=== PATIENT | male | born 1960 | race Caucasian/White ===

== ENCOUNTER 2016-11-16 05:43 | Emergency (ER) | payer OTHER ==
[~2016-11-16] VITALS: Ht 190.5 cm; Wt 104.5 kg
[2016-11-16 05:48] VITALS: TEMP 36.8; Ht 190.5 cm; Wt 104.5 kg
--- NOTE | 2016-11-16 06:12 | EMERGENCY ROOM VISIT NOTE ---
History Report prepared by Sudhiribmalik: Jessica Sam Under the Supervision of: Dr. Kristin Brown M.D. First contact with patient: 05:58 Chief Complaint: FOOT PAIN Stated Complaint: VERY PAINFUL FEET, ODD SENSATIONS IN LEGS History of Present Illness The patient is a 56 year old male who presents to the Emergency Room with complaints of worsening bilateral foot pain for the past 4 days. He rates his discomfort as an 8/10 and describes it as feeling like "burning" pain. Movement worsens his pain. He has a history of neuropathy but states his current pain is worse than anything he has ever experienced before. He is on daily Gabapentin for his neuropathy. 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 After the surgery, he started experiencing severe headaches and was taking prescription pain medications for his discomfort. He notes the headaches stopped about 1 year ago and he is no longer taking prescription pain medicine. The patient is a current smoker, stating he can smoke anywhere from 1/4 a pack to a pack a day. He is not diabetic but admits to a family history of diabetes. He denies any recent fevers. 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 A total of 10 systems reviewed and were otherwise negative. Past Medical & Surgical Medical Problems: (1) History of benign orbital tumor (2) HIV (human immunodeficiency virus infection) (3) Neuropathy Social History Smoking Status: Current Every Day Smoker Alcohol Use: occasionally Drug Use: none Marital Status: single Housing Status: lives with family Occupation Status: unemployed Current/Historical Medications Scheduled Dolutegravir Sodium (Tivicay), 1 TAB PO DAILY Duloxetine Hcl (Cymbalta), 60 MG PO DAILY Emtricitabine/Temofovir (Truvada 200/300MG), 1 TAB PO DAILY Gabapentin (Neurontin), 600 MG PO QID Lisinopril/Hctz (Zestoretic 20MG/25MG), 1 TAB PO DAILY Methylphenidate (Ritalin), 10 MG PO BID Valacyclovir (Valtrex), 500 MG PO DAILY Allergies Coded Allergies: Penicillins (Unverified Allergy, Severe, ANAPHYLAXIS, 11/16/16) Physical Exam Vital Signs Date Time Temp Pulse Resp B/P Pulse Ox O2 Delivery O2 Flow Rate FiO2 11/16/16 06:57 95 18 128/88 96 11/16/16 05:48 36.8 103 18 135/88 95 Room Air Physical Exam Vital signs reviewed. General: Well-appearing 56 year old male, in no significant distress. HEENT: No scleral icterus, PERRLA, neck supple. Atraumatic. Cardiovascular: Regular rate and rhythm, no extra sounds. Pulmonary: Clear to auscultation bilaterally, normal work of breathing. Abdomen: Soft, nontender, nondistended, positive bowel sounds. Musculoskeletal: Atraumatic, no peripheral edema. Neurologic: Patient awake alert and oriented x 3, full strength in all 4 extremities. Cranial nerves 2 through 12 grossly intact. Skin: Chronic discoloration of the bilateral feet, improves with elevating the feet, bilateral feet are cool to the touch, pulses are intact. Medical Decision & Procedures Laboratory Results 11/16/16 06:15 Red Blood Count 5.74, Mean Corpuscular Volume 91.5, Mean Corpuscular Hemoglobin 33.4, Mean Corpuscular Hemoglobin Concent 36.6, Mean Platelet Volume 9.8, Neutrophils (%) (Auto) 65.2, Lymphocytes (%) (Auto) 23.8, Monocytes (%) (Auto) 8.9, Eosinophils (%) (Auto) 1.5, Basophils (%) (Auto) 0.2, Neutrophils # (Auto) 11.00, Lymphocytes # (Auto) 4.01, Monocytes # (Auto) 1.51, Eosinophils # (Auto) 0.25, Basophils # (Auto) 0.04 11/16/16 06:15 Test 11/16/16 06:15 White Blood Count 16.88 K/uL (4.8-10.8) Red Blood Count 5.74 M/uL (4.7-6.1) Hemoglobin 19.2 g/dL (14.0-18.0) Hematocrit 52.5 % (42-52) Mean Corpuscular Volume 91.5 fL (80-100) Mean Corpuscular Hemoglobin 33.4 pg (25-34) Mean Corpuscular Hemoglobin Concent 36.6 g/dl (32-36) Platelet Count 294 K/uL (130-400) Mean Platelet Volume 9.8 fL (7.4-10.4) Neutrophils (%) (Auto) 65.2 % Lymphocytes (%) (Auto) 23.8 % Monocytes (%) (Auto) 8.9 % Eosinophils (%) (Auto) 1.5 % Basophils (%) (Auto) 0.2 % Neutrophils # (Auto) 11.00 K/uL (1.4-6.5) Lymphocytes # (Auto) 4.01 K/uL (1.2-3.4) Monocytes # (Auto) 1.51 K/uL (0.11-0.59) Eosinophils # (Auto) 0.25 K/uL (0-0.5) Basophils # (Auto) 0.04 K/uL (0-0.2) RDW Standard Deviation 43.5 fL (36.4-46.3) RDW Coefficient of Variation 13.1 % (11.5-14.5) Immature Granulocyte % (Auto) 0.4 % Immature Granulocyte # (Auto) 0.07 K/uL (0.00-0.02) Anion Gap 9.0 mmol/L (3-11) Est Creatinine Clear Calc Drug Dose 92.1 ml/min Estimated GFR () 79.0 Estimated GFR (Non- 68.1 BUN/Creatinine Ratio 11.5 (10-20) Calcium Level 8.9 mg/dl (8.5-10.1) Magnesium Level 2.3 mg/dl (1.8-2.4) Total Bilirubin 0.4 mg/dl (0.2-1) Direct Bilirubin < 0.1 mg/dl (0-0.2) Aspartate Amino Transf (AST/SGOT) 39 U/L (15-37) Alanine Aminotransferase (ALT/SGPT) 102 U/L (12-78) Alkaline Phosphatase 100 U/L (45-117) Total Protein 7.6 gm/dl (6.4-8.2) Albumin 3.8 gm/dl (3.4-5.0) Laboratory results per my review. Medications Administered Medications (Trade) Dose Ordered Sig/Rosario Route Start Time Stop Time Status Last Admin Dose Admin Acetaminophen/ Hydrocodone Bitart (Powderly 5/325mg Home Pack) 1 Shoppable UD ONCE PO 11/16/16 06:15 11/16/16 06:16 DC 11/16/16 06:36 1 Novatel WirelessCK ED Course 0601: Past medical records reviewed. The patient was evaluated in room A3. A complete history and physical examination was performed. 0615: Powderly 5/325 mg 1 home pack PO. 0645: I reevaluated the patient. I discussed his results and discharge instructions and he verbalized complete understanding and agreement. Medical Decision Differential diagnosis of this patient's presentation includes cellulitis, neuropathy, DVT, arterial occlusion, arterial insufficiency This patient was evaluated and appeared to be in some discomfort. Physical examination reveals skin changes consistent with arterial insufficiency. The patient does smoke daily. He also has been HIV-positive on antiviral therapy for 25 years. I suspect the patient neuropathic symptoms may be related to this therapy. Pt was found to have a leukocytosis on laboratory work. He states this has been periodically an issue for him. He denies any fever. Patient would like to drive home therefore he was given a Powderly home pack. He was asked to follow-up with his primary care physician within the next several days for reevaluation. He will continue his Neurontin as prescribed. He will return to the ER for worsening of symptoms or any medical concerns. Impression Primary Impression: Neuropathic pain Scribe Attestation The scribe's documentation has been prepared under my direction and personally reviewed by me in its entirety. I confirm that the note above accurately reflects all work, treatment, procedures, and medical decision making performed by me. Departure Information Dispostion Home / Self-Care Referrals Dayo Betts D.O.Int.Med. (PCP) Patient Instructions [facility] Additional Instructions Diagnosis: Neuropathy Powderly 1-2 tabs every 6 hours as needed for pain. Do not drive or take tylenol with this medication. Follow up with Dr Gregory and your PCP this week regarding the elevated WBC. Continue neurontin as prescribed. Return to the ED for worsening of symptoms or any medical concerns.
[2016-11-16] MEDS ORDERED: NORCO 5/325MG HOME PACK PO ONE (06:15)
[2016-11-16 06:30] LABS: BASO % 0.2 %; BASO ABS # 0.04 K/uL (0-0.2); COMPLETE YES; EOS % 1.5 %; HEMATOCRIT 52.5 % (42-52); IG% 0.4 %; LYMPH % 23.8 %; LYMPH ABS # 4.01 K/uL (1.2-3.4); MEAN CELL VOLUME 91.5 fL (80-100); MEAN CORPUSCULAR HEMOGLOBIN 33.4 pg (25-34); MEAN CORPUSCULAR HGB CONC 36.6 g/dl (32-36); MEAN PLATELET VOLUME 9.8 fL (7.4-10.4); MONO % 8.9 %; NEUT % 65.2 %; PLATELET COUNT 294 K/uL (130-400); RED BLOOD COUNT 5.74 M/uL (4.7-6.1); WHITE BLOOD COUNT 16.88 K/uL (4.8-10.8)
[2016-11-16] MEDS ORDERED: LISI-788 PO (06:30)
[2016-11-16] MEDS ORDERED: VALA500T60 PO (06:31)
[2016-11-16] MEDS ORDERED: TRVHP PO (06:31)
[2016-11-16] MEDS ORDERED: NRN/600 PO (06:32)
[2016-11-16] MEDS ORDERED: DOLU1TAB PO (06:32)
[2016-11-16] MEDS ORDERED: METH10TA4 PO (06:32)
[2016-11-16] MEDS ORDERED: DULO60CA44 PO (06:32)
[2016-11-16 06:48] LABS: ALT/SGPT 102 U/L (12-78); AST/SGOT 39 U/L (15-37); BLOOD UREA NITROGEN 14 mg/dl (7-18); BUN/CREATININE RATIO 11.5 (10-20); CALCIUM 8.9 mg/dl (8.5-10.1); CARBON DIOXIDE 26 mmol/L (21-32); CHLORIDE 101 mmol/L (98-107); GLUCOSE 118 mg/dl (70-99); MAGNESIUM 2.3 mg/dl (1.8-2.4); POTASSIUM 3.8 mmol/L (3.5-5.1); SODIUM 136 mmol/L (136-145)
[2016-11-16 06:50] LABS: ALKALINE PHOSPHATASE 100 U/L (45-117)
[2016-11-16 06:57] VITALS: BP 128/88; PULSE 95; O2SAT 96
== END 2016-11-16 06:58 | disposition home or self-care (01) ==
LOC: C.EDB 05:46 → C.EDA 06:58
DX: M79.2 Neuralgia and neuritis, unspecified (principal)

== ENCOUNTER → 2017-01-18 | Outpatient (CLI) | payer OTHER ==
[~2017-01-18] MED LIST: DOLU1TAB PO; DULO60CA44 PO; GABA800T PO; LISI-788 PO; METH10TA4 PO; NICO21DI4 TD; NRN/600 PO; RSP1 PO; TRVHP PO; VALA500T60 PO
[2017-01-18 11:13] LABS: BASO % 0.3 %; BASO ABS # 0.04 K/uL (0-0.2); COMPLETE YES; EOS % 2.1 %; HEMATOCRIT 48.7 % (42-52); IG% 0.4 %; LYMPH % 23.3 %; LYMPH ABS # 3.16 K/uL (1.2-3.4); MEAN CELL VOLUME 93.3 fL (80-100); MEAN CORPUSCULAR HEMOGLOBIN 31.8 pg (25-34); MEAN CORPUSCULAR HGB CONC 34.1 g/dl (32-36); MEAN PLATELET VOLUME 10.1 fL (7.4-10.4); MONO % 8.3 %; NEUT % 65.6 %; PLATELET COUNT 286 K/uL (130-400); RED BLOOD COUNT 5.22 M/uL (4.7-6.1); WHITE BLOOD COUNT 13.58 K/uL (4.8-10.8)
[2017-01-18 11:29] LABS: AST/SGOT 43 U/L (15-37); BLOOD UREA NITROGEN 14 mg/dl (7-18); BUN/CREATININE RATIO 11.8 (10-20); CALCIUM 9.1 mg/dl (8.5-10.1); CARBON DIOXIDE 33 mmol/L (21-32); CHLORIDE 101 mmol/L (98-107); GLUCOSE 188 mg/dl (70-99); POTASSIUM 3.8 mmol/L (3.5-5.1); SODIUM 140 mmol/L (136-145)
[2017-01-18 11:33] LABS: ALB/GLOB RATIO 0.9 (0.9-2); ALKALINE PHOSPHATASE 104 U/L (45-117); ALT/SGPT 121 U/L (12-78)
[2017-01-21 20:30] LABS: LSP % CELLS ANALYZED CD4 45 % (30-61); LSP ABSOLUTE CT CD4 1361 cells/uL (490-1740); LSP LYMPHOCYTES ABSOLUTE 3032 cells/uL (850-3900)
== END | disposition home or self-care (01) ==
LOC: C.LABBC 07:56
PROVIDERS: ATTEND Internal Medicine Infectious Disease
DX: B20 Human immunodeficiency virus [HIV] disease (principal)

== ENCOUNTER → 2017-01-19 | Outpatient (CLI) | payer OTHER ==
[~2017-01-19] MED LIST changes: +CEPH500C PO; +SULF800T23 PO
--- NOTE | 2017-01-19 08:11 | DIAGNOSTIC IMAGING REPORT ---
MRI OF THE BRAIN AND ORBITS WITHOUT CONTRAST. CLINICAL HISTORY: R51 Chronic facial painD31.62 Benign orbital tumor COMPARISON STUDY: No previous studies for comparison. FINDINGS: No intra or extra-axial mass lesions are visualized. Axial diffusion-weighted images reveal no evidence of acute or subacute infarction. There is no evidence of hydrocephalus. There are foci of increased T2 signal within the left mastoid, likely inflammatory. Proton density T2-weighted and FLAIR images reveal no significant intraparenchymal signal abnormalities. No orbital masses are visualized. IMPRESSION: 1. Foci of increased T2 signal within the left mastoid likely inflammatory 2. No orbital masses identified 3. No evidence of acute or subacute infarction. Electronically signed by: Matthew Ortiz M.D. 01/19/2017 8:09 AM Dictated Date/Time: 01/19/2017 8:05 AM
[2017-01-19 11:22] LABS: PROLACTIN 8.03 ng/mL
== END | disposition home or self-care (01) ==
LOC: C.MRIBC 06:47
PROVIDERS: ATTEND Physician Assistant Medical
DX: Z11.59 Encounter for screening for other viral diseases (principal); B20 Human immunodeficiency virus [HIV] disease; N52.9 Male erectile dysfunction, unspecified; E29.1 Testicular hypofunction; R73.9 Hyperglycemia, unspecified; R51 Headache; D31.62 Benign neoplasm of unspecified site of left orbit

== ENCOUNTER 2017-02-10 23:50 | Emergency (ER) | payer OTHER ==
[~2017-02-10] VITALS: Ht 190.5 cm; Wt 102.8 kg
[~2017-02-10 23:50] MED LIST changes: -CEPH500C PO; -GABA800T PO; -NICO21DI4 TD; -RSP1 PO; -SULF800T23 PO
[2017-02-10 23:56] VITALS: TEMP 36.7; Ht 190.5 cm; Wt 102.8 kg
--- NOTE | 2017-02-11 00:34 | EMERGENCY ROOM VISIT NOTE ---
ED Visit Note First contact with patient: 00:18 Chief Complaint: Terrible Pain in Feet - Like Walking on Glass/Burning History of Present Illness: Patient is a 57-year-old male who presents the emergency department today for pain and burning in the bilateral feet. He reports a history of similar symptoms in the past. His symptoms are worse at night. He is currently on gabapentin for neuropathy. He has a history of HIV as well as restless leg syndrome. The patient was seen here previously for essentially the same symptoms. There is been no adjustment in his medications recently. The patient has tried pnrm-gwe-bgaxbet medications without relief of symptoms. He denies any injuries to the feet. He rates his current discomfort is 7/10. He denies any throat swelling, ankle pain, calf pain, or knee pain. He denies any loss of control bowel/bladder or saddle anesthesia. Medications: Reviewed and discussed with the patient. Allergies: Penicillins PMH: As above. SHx: Patient is a 57-year-old male who lives locally. ROS: All pertinent positive and negative review of systems are appropriately documented in the History of Present Illness. Physical Exam: VITAL SIGNS - Vital signs and nursing notes were reviewed. GENERAL - 57-year-old male appearing his stated age and in noticeable discomfort throughout the exam. MUSCULOSKELETAL - BILATERAL feet without erythema, edema, and ecchymosis. No tenderness to palpation appreciated over the throughout. No tenderness to palpation in the plantar arch. No tenderness extending into the ankle or toes. Pt with full AROM at affected joints. NEUROLOGIC/VASCULAR - Neurovascularly intact distally with +3/5 dorsalis pedis pulses palpated bilaterally. Normal sensation to light and sharp touch appreciated distally. ED Course: Patient was seen and evaluated by myself. Previous emergency department visit notes were reviewed. The patient was provided a home pack for Percocet. The patient was encouraged to follow-up with his primary care provider from today's visit. He was educated on worrisome symptoms for return visit to the emergency department. Patient discharged home in good condition. In the evaluation and treatment of this patient, the following differential diagnoses were considered: Lisfranc Fracture, Talus Fracture, Tarsal Fracture, Foot Sprain. Impression: Foot Pain - Neuropathy, Restless Leg Syndrome Discharge Instructions: You have been seen in the emergency department today for your bilateral foot pain. You have been provided Percocet to be used for pain control. This is a narcotic medication. You cannot drive or consume alcohol while on this medicine. This medicine should only be used for pain that cannot be controlled with over-the- counter pain medicines. For pain control, you can use the following lkes-emz-aqhmuiv medicines (if >12 yo): - Regular strength (325mg/tab) Tylenol (acetaminophen) 2 tabs every 4-6 hours as needed. Do not exceed 12 tablets in a 24 hour period. Avoid taking more than 4 grams (4000 mg) of Tylenol per day. This includes any other sources of acetaminophen you may take on a regular basis. - Regular strength (200 mg/tab) Advil (ibuprofen) 1-2 tabs every 4-6 hours as needed. Do not exceed a dose of 3200 mg per day. Follow-up with your primary care provider from today's visit. Return for any changing or worsening symptoms. Current/Historical Medications Scheduled Dolutegravir Sodium (Tivicay), 1 TAB PO DAILY Duloxetine Hcl (Cymbalta), 60 MG PO DAILY Emtricitabine/Temofovir (Truvada 200/300MG), 1 TAB PO DAILY Gabapentin (Neurontin), 600 MG PO QID Lisinopril/Hctz (Zestoretic 20MG/25MG), 1 TAB PO DAILY Methylphenidate (Ritalin), 10 MG PO BID Valacyclovir (Valtrex), 500 MG PO DAILY Allergies Coded Allergies: Penicillins (Unverified Allergy, Severe, ANAPHYLAXIS, 11/16/16) Vital Signs Date Time Temp Pulse Resp B/P Pulse Ox O2 Delivery O2 Flow Rate FiO2 02/11/17 00:49 88 18 132/68 96 02/10/17 23:56 36.7 96 18 127/86 95 Room Air Medications Administered Medications (Trade) Dose Ordered Sig/Rosario Route Start Time Stop Time Status Last Admin Dose Admin Oxycodone/ Acetaminophen (Percocet 5/ 325MG Home Pack) 1 homepack UD ONCE PO 02/11/17 00:45 02/11/17 00:46 DC 02/11/17 00:45 1 HOMEPACK Departure Information Impression Primary Impression: Foot pain Additional Impression: Neuropathy Dispostion Home / Self-Care Condition GOOD Referrals Dayo Betts D.O.Int.Med. (PCP) Patient Instructions [facility] Additional Instructions You have been seen in the emergency department today for your bilateral foot pain. You have been provided Percocet to be used for pain control. This is a narcotic medication. You cannot drive or consume alcohol while on this medicine. This medicine should only be used for pain that cannot be controlled with over-the- counter pain medicines. For pain control, you can use the following aigv-bfm-iozohiu medicines (if >12 yo): - Regular strength (325mg/tab) Tylenol (acetaminophen) 2 tabs every 4-6 hours as needed. Do not exceed 12 tablets in a 24 hour period. Avoid taking more than 4 grams (4000 mg) of Tylenol per day. This includes any other sources of acetaminophen you may take on a regular basis. - Regular strength (200 mg/tab) Advil (ibuprofen) 1-2 tabs every 4-6 hours as needed. Do not exceed a dose of 3200 mg per day. Follow-up with your primary care provider from today's visit. Return for any changing or worsening symptoms. Problem Qualifiers Primary Impression: Foot pain Laterality: bilateral Qualified Codes: M79.671 - Pain in right foot; M79.672 - Pain in left foot
[2017-02-11] MEDS ORDERED: PERCOCET HOME PACK PO ONE (00:45)
[2017-02-11 00:49] VITALS: BP 132/68; PULSE 88; O2SAT 96
== END 2017-02-11 00:52 | disposition home or self-care (01) ==
LOC: C.EDB 23:51 → C.EDA 02-11 00:52
DX: M79.671 Pain in right foot (principal); M79.672 Pain in left foot; G62.9 Polyneuropathy, unspecified; G25.81 Restless legs syndrome; Z79.899 Other long term (current) drug therapy; B20 Human immunodeficiency virus [HIV] disease

== ENCOUNTER → 2017-03-07 | Outpatient (CLI) | payer OTHER ==
[~2017-03-07] MED LIST changes: +CEPH500C PO; +GABA800T PO; +NICO21DI4 TD; +RSP1 PO; +SULF800T23 PO
== END | disposition home or self-care (01) ==
LOC: C.PATHSPEC 17:46
PROVIDERS: ATTEND Plastic Surgery
DX: B07.9 Viral wart, unspecified (principal)

== ENCOUNTER 2017-05-12 09:54 | Inpatient (IN) | payer OTHER ==
[~2017-05-12] VITALS: Ht 190.5 cm; Wt 105.0 kg
[~2017-05-12 09:54] MED LIST changes: -CEPH500C PO; -GABA800T PO; -NICO21DI4 TD; -RSP1 PO; -SULF800T23 PO
[2017-05-12] MEDS ORDERED: HALOPERIDOL LACTATE 5 MG/ML 1 ML VIAL IM STA (10:01)
[2017-05-12] MEDS ORDERED: LORAZEPAM 2 MG/ML 1 ML VIAL IM STA (10:01)
[2017-05-12] MEDS ORDERED: LORAZEPAM 2 MG/ML 1 ML VIAL ONE (10:02)
[2017-05-12] MEDS ORDERED: HALOPERIDOL LACTATE 5 MG/ML 1 ML VIAL ONE (10:02)
--- NOTE | 2017-05-12 10:55 | EMERGENCY ROOM VISIT NOTE ---
History Report prepared by Amrik: Haley Culver Under the Supervision of: Dr. Romain Rosenbaum M.D. First contact with patient: 09:56 Stated Complaint: U History of Present Illness The patient is a 57 year old male who presents to the Emergency Room for a mental health evaluation. The patient was brought to the ED in police custody. Officers state that they were called to the patient's home because he had a razor blade and was trying to kill himself. His sister called the police. When police arrived on scene the patient was agitated, uncooperative, and slamming doors. The patient states that he got into an argument with his family and he "got some razor blades and I'm going to end it." The patient has contemplated suicide in the past. He states that he was going to jump out of his 10[address] story apartment window years ago. 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 The patient is HIV positive. The HPI is limited due to poor cooperation and acute psychosis. Source of History: patient, police Onset: SECOND CUTTER Position: other (mental health) Quality: other (suicidal) Timing: worsening Modifying Factors (Worsening): other (argument with family) Review of Systems The ROS is limited due to poor cooperation and acute psychosis. Past Medical & Surgical Medical Problems: (1) History of benign orbital tumor (2) HIV (human immunodeficiency virus infection) (3) Neuropathy Family History No pertinent history stated. Social History Smoking Status: Current Every Day Smoker Alcohol Use: occasionally Drug Use: none Marital Status: single Housing Status: lives with family Occupation Status: unemployed Current/Historical Medications Scheduled Dolutegravir Sodium (Tivicay), 1 TAB PO DAILY Duloxetine Hcl (Cymbalta), 60 MG PO DAILY Emtricitabine/Temofovir (Truvada 200/300MG), 1 TAB PO DAILY Gabapentin (Neurontin), 2,400 MG PO HS Lisinopril/Hctz (Zestoretic 20MG/25MG), 1 TAB PO DAILY Methylphenidate (Ritalin), 20 MG PO BID Allergies Coded Allergies: Penicillins (Unverified Allergy, Severe, ANAPHYLAXIS, 11/16/16) Physical Exam Vital Signs Date Time Temp Pulse Resp B/P (MAP) Pulse Ox O2 Delivery O2 Flow Rate FiO2 05/12/17 16:48 86 7/20/17 13:41 84 18 126/84 94 Room Air 05/12/17 12:00 94 20 140/78 94 Room Air 05/12/17 11:45 95 16 144/79 95 Room Air 05/12/17 11:30 96 16 133/81 97 Room Air 05/12/17 11:15 98 20 153/84 94 Room Air 05/12/17 11:09 100 17 150/75 94 Room Air 05/12/17 10:47 108 17 141/73 93 Room Air 05/12/17 10:28 108 24 124/69 96 Room Air 05/12/17 10:17 120 05/12/17 10:15 36.6 126 28 141/121 97 Room Air 05/12/17 10:12 124/100 Room Air Physical Exam GENERAL: Patient awake, alert, oriented x 3. Patient is extremely agitated, diaphoretic, and combative. Patient does not appear toxic. Patient is adequately hydrated and well-nourished. SKIN: Diaphoretic. No erythema, pallor, cyanosis or rash HEENT: Normal head, pupils equal, reactive to light and accommodation. Ears normal. Oral cavity and posterior pharynx appear normal. Neck: Without adenopathy, no neck vein distention. LUNGS: Clear to auscultation. No wheezes, no rales, no rhonchi. HEART: No murmurs. No gallops. No rubs ABDOMEN: No masses, no rebound, no hepatomegaly or splenomegaly. EXTREMITIES: No signs of trauma or infection. NEUROLOGIC: Cranial nerves II-XII within normal limits. No gross motor sensory function deficits. Medical Decision & Procedures Laboratory Results 05/12/17 10:58 05/12/17 10:58 Test 05/12/17 10:58 05/12/17 16:00 Red Blood Count 5.05 M/uL (4.7-6.1) Mean Corpuscular Volume 92.1 fL (80-100) Mean Corpuscular Hemoglobin 32.3 pg (25-34) Mean Corpuscular Hemoglobin Concent 35.1 g/dl (32-36) RDW Standard Deviation 42.6 fL (36.4-46.3) RDW Coefficient of Variation 12.8 % (11.5-14.5) Mean Platelet Volume 10.0 fL (7.4-10.4) Anion Gap 10.0 mmol/L (3-11) Est Creatinine Clear Calc Drug Dose 67.8 ml/min Estimated GFR () 55.4 Estimated GFR (Non- 47.8 BUN/Creatinine Ratio 9.9 (10-20) Calcium Level 9.5 mg/dl (8.5-10.1) Total Bilirubin 1.1 mg/dl (0.2-1) Aspartate Amino Transf (AST/SGOT) 55 U/L (15-37) Alanine Aminotransferase (ALT/SGPT) 76 U/L (12-78) Alkaline Phosphatase 94 U/L (45-117) Total Protein 7.4 gm/dl (6.4-8.2) Albumin 4.0 gm/dl (3.4-5.0) Globulin 3.4 gm/dl (2.5-4.0) Albumin/Globulin Ratio 1.2 (0.9-2) Ethyl Alcohol mg/dL < 3.0 mg/dl (0-3) Urine Color DK YELLOW Urine Appearance CLEAR (CLEAR) Urine pH 5.5 (4.5-7.5) Urine Specific [place] 1.022 (1.000-1.030) Urine Protein TRACE (NEG) Urine Glucose (UA) NEG (NEG) Urine Ketones 2+ (NEG) Urine Occult Blood NEG (NEG) Urine Nitrite NEG (NEG) Urine Bilirubin NEG (NEG) Urine Urobilinogen NEG (NEG) Urine Leukocyte Esterase NEG (NEG) Urine WBC (Auto) 1-5 /hpf (0-5) Urine RBC (Auto) 0-4 /hpf (0-4) Urine Epithelial Cells (Auto) 20-30 /lpf (0-5) Urine Bacteria (Auto) NEG (NEG) Urine Pathogenic Casts /lpf (0) Urine Opiates Screen NEG (NEG) Urine Methadone, Qualitative NEG (NEG) Urine Barbiturates NEG (NEG) Urine Phencyclidine (PCP) Level NEG (NEG) Ur Amphetamine/Methamphetamine POS (NEG) MDMA (Ecstasy) Screen POS (NEG) Urine Benzodiazepines Screen NEG (NEG) Urine Cocaine Metabolite NEG (NEG) Urine Marijuana (THC) NEG (NEG) Laboratory results as stated above per my review. Medications Administered Medications (Trade) Dose Ordered Sig/Rosario Route Start Time Stop Time Status Last Admin Dose Admin Lorazepam (Ativan Inj) 2 mg STK-MED ONCE .ROUTE 05/12/17 10:02 05/12/17 10:03 DC 05/12/17 10:05 2 MG Haloperidol Lactate (Haldol Inj) 5 mg STK-MED ONCE .ROUTE 05/12/17 10:02 05/12/17 10:03 DC 05/12/17 10:05 5 MG ECG Indication: other Rate (beats per minute): 108 Rhythm: sinus tachycardia Findings: no acute ischemic change, no ectopy ED Course 0956: Past medical records reviewed. The patient was evaluated in room B1. A complete history and physical examination was performed. 1001: Ativan 2 mg IM, Haldol 5 mg IM 1122: I reevaluated the patient and he is much calmer. 1629: I reassessed the patient at this time. He is very drowsy and not able to carry on a conversation. 1634: I discussed the patient's care with the psychiatric liaison. 1715: NSS 1000 ml @ 1000 mls/hr IV 1800: The patient was signed out to Dr. Gold at the change of shift. Medical Decision Differential diagnoses includes methamphetamine exposure, other medication/drug exposure, suicidality, depression, history of HIV. The patient was evaluated immediately on arrival. He was combative and extremely agitated. The patient was ushered here by police. The patient apparently had been threatening to kill himself using a razor blade. Speech is very pressured and rapid. Patient appears to be hallucinating. He also appears paranoid. Patient admits to using some methamphetamine. Multiple labs , EKG and imaging were obtained. Patient required Haldol and Ativan to sedate him to prevent himself from harming himself or others. Patient was observed for several hours. Case was ultimately signed off to Dr. Gold at change of shift. The patient will require mental health evaluation. I remain concerned about the suicidal ideation and threat. Medication Reconcilliation Current Medication List: was personally reviewed by me Blood Pressure Screening Patient's blood pressure: Normal blood pressure Blood pressure disposition: Did not require urgent referral Impression Primary Impression: Hallucinogen overdose Additional Impressions: Depression Suicidal ideation Scribe Attestation The scribe's documentation has been prepared under my direction and personally reviewed by me in its entirety. I confirm that the note above accurately reflects all work, treatment, procedures, and medical decision making performed by me. Departure Information Dispostion Still a Patient Referrals No Doctor, Assigned (PCP) Problem Qualifiers Primary Impression: Hallucinogen overdose Encounter type: initial encounter Injury intent: undetermined intent Qualified Codes: T40.904A - Poisoning by unspecified psychodysleptics [ hallucinogens], undetermined, initial encounter Additional Impressions: Depression Depression Type: unspecified Qualified Codes: F32.9 - Major depressive disorder, single episode, unspecified
[2017-05-12] MEDS ORDERED: GABA800T PO (11:16)
[2017-05-12] MEDS ORDERED: LISI-788 PO (11:16)
[2017-05-12 11:22] LABS: HEMATOCRIT 46.5 % (42-52); MEAN CELL VOLUME 92.1 fL (80-100); MEAN CORPUSCULAR HEMOGLOBIN 32.3 pg (25-34); MEAN CORPUSCULAR HGB CONC 35.1 g/dl (32-36); PLATELET COUNT 268 K/uL (130-400); RED BLOOD COUNT 5.05 M/uL (4.7-6.1); WHITE BLOOD COUNT 15.65 K/uL (4.8-10.8)
[2017-05-12 11:42] LABS: BUN/CREATININE RATIO 9.9 (10-20); CALCIUM 9.5 mg/dl (8.5-10.1); CREATININE 1.6 mg/dl (0.60-1.40); POTASSIUM 3.3 mmol/L (3.5-5.1)
[2017-05-12 11:45] LABS: ALB/GLOB RATIO 1.2 (0.9-2)
[2017-05-12 16:49] LABS: URINE APPEARANCE CLEAR (CLEAR); URINE BILIRUBIN NEG (NEG); URINE COLOR DK YELLOW; URINE EPITHELIAL CELL AUTO 20-30 /lpf (0-5); URINE NITRITE NEG (NEG); URINE PH 5.5 (4.5-7.5); URINE SPECIFIC GRAVITY 1.022 (1.000-1.030); UROBILINOGEN NEG (NEG); ZZUR CULT IF INDIC CLEAN CATCH NO
[2017-05-12 16:50] LABS: MANUAL MICROSCOPIC REQUIRED? NO; REVIEW REQ? YES
[2017-05-12 17:08] LABS: BENZODIAZEPINE, URINE NEG (NEG); COCAINE,URINE NEG (NEG); PHENCYCLIDINE, URINE NEG (NEG)
[2017-05-12] MEDS ORDERED: SODIUM CHLORIDE 0.9% 1000ML 1,000 ML IV ONE (17:15)
[2017-05-12 18:32] LABS: ACETAMINOPHEN < 2 ug/ml (10-30)
--- NOTE | 2017-05-12 18:32 | EMERGENCY ROOM VISIT NOTE ---
ED Visit Note First contact with patient: 18:25 This patient was signed out to me at change of shift by Dr. Rosenbaum. He came in with multidrug overdose including methamphetamine. He was agitated and given Haldol and Ativan over 8 hours ago. The patient remains rather somnolent and unable to give a coherent history. The mental health nurse case manager recommended hospitalization medically and he will be assessed psychiatrically once he is more coherent. I did discuss case with Dr. Samantha Cm.
[2017-05-12] MEDS ORDERED: ACETAMINOPHEN 325 MG TAB PO PRN (19:30)
[2017-05-12] MEDS ORDERED: ONDANSETRON INJ 2 MG/ML 2 ML VIAL IV PRN (19:30)
--- NOTE | 2017-05-12 20:02 | History and Physical ---
History & Physical Date & Time of Service: May 12, 2017 at 19:53 Chief Complaint: 302 Primary Care Physician: No Doctor, Assigned History of Present Illness Source: hospital records 57-year-old male brought in by police after prior methamphetamine binge. Patient states his mother vitamin dealer was using last night. He then had an argument with his family and said he was "going and it all and with the razor blades. Patient does have a history of mental health. This information was gleaned from the chart as the patient is sedate and although arousable and oriented to person and place falls asleep easily and midsentence. Patient is known HIV positive. Patient did not disclose an event that triggered this or set him off. In the emergency department the patient did require some sedation due to his agitation and he is not mentally cleared enough to be taken into psychiatric care. Apparently the sister did follow petition but that is as far as is gone at this time. The patient himself says he feels groggy he has no focal complaints or pain Past Medical/Surgical History Medical Problems: (1) History of benign orbital tumor Status: Chronic (2) HIV (human immunodeficiency virus infection) Status: Chronic (3) Neuropathy Status: Chronic Glucose intolerance usually taking metformin Hypertension usually taking lisinopril || thiazide Depression and attention deficit disorder taking Cymbalta and Ritalin Anterior cruciate ligament reconstruction History of Gregory's palsy. Family History Patient has family history of hypertension diabetes Social History Smoking Status: Current Every Day Smoker Drug Use: none Marital Status: single Occupational Status: unemployed Allergies Coded Allergies: Penicillins (Unverified Allergy, Severe, ANAPHYLAXIS, 11/16/16) Home Medications Scheduled Dolutegravir Sodium (Tivicay), 1 TAB PO DAILY Duloxetine Hcl (Cymbalta), 60 MG PO DAILY Emtricitabine/Temofovir (Truvada 200/300MG), 1 TAB PO DAILY Gabapentin (Neurontin), 2,400 MG PO HS Lisinopril/Hctz (Zestoretic 20MG/25MG), 1 TAB PO DAILY Methylphenidate (Ritalin), 20 MG PO BID Review of Systems due to lethargy cannot perform a ROS. Physical Exam Vital Signs Date Time Temp Pulse Resp B/P (MAP) Pulse Ox O2 Delivery O2 Flow Rate FiO2 05/12/17 19:10 78 20 126/80 98 Room Air 05/12/17 16:48 86 05/12/17 16:30 80 18 105/70 97 Room Air 05/12/17 13:41 84 18 126/84 94 Room Air 05/12/17 12:00 94 20 140/78 94 Room Air 05/12/17 11:45 95 16 144/79 95 Room Air 05/12/17 11:30 96 16 133/81 97 Room Air 05/12/17 11:15 98 20 153/84 94 Room Air 05/12/17 11:09 100 17 150/75 94 Room Air 05/12/17 10:47 108 17 141/73 93 Room Air 05/12/17 10:28 108 24 124/69 96 Room Air 05/12/17 10:17 120 05/12/17 10:15 36.6 126 28 141/121 97 Room Air 05/12/17 10:12 124/100 Room Air General Appearance: WD/WN, + moderate distress Head: normocephalic, atraumatic Eyes: PERRL, EOMI Neck: supple, trachea midline Respiratory/Chest: chest non-tender, lungs clear, normal breath sounds Cardiovascular: regular rate, rhythm, no murmur Abdomen/GI: normal bowel sounds, non tender, soft Back: normal inspection, no CVA tenderness, no muscle spasm Extremities/Musculoskelatal: normal inspection, normal range of motion Neurologic/Psych: cost controller II-XII nml as tested, no motor/sensory deficits, alert Skin: normal color, warm/dry, no rash Diagnostics Laboratory Results Results Past 24 Hours Test 05/12/17 10:58 05/12/17 16:00 Range/Units White Blood Count 15.65 4.8-10.8 K/uL Red Blood Count 5.05 4.7-6.1 M/uL Hemoglobin 16.3 14.0-18.0 g/dL Hematocrit 46.5 42-52 % Mean Corpuscular Volume 92.1 80-100 fL Mean Corpuscular Hemoglobin 32.3 25-34 pg Mean Corpuscular Hemoglobin Concent 35.1 32-36 g/dl RDW Standard Deviation 42.6 36.4-46.3 fL RDW Coefficient of Variation 12.8 11.5-14.5 % Platelet Count 268 130-400 K/uL Mean Platelet Volume 10.0 7.4-10.4 fL Sodium Level 141 136-145 mmol/L Potassium Level 3.3 3.5-5.1 mmol/L Chloride Level 107 98-107 mmol/L Carbon Dioxide Level 24 21-32 mmol/L Anion Gap 10.0 3-11 mmol/L Blood Urea Nitrogen 16 7-18 mg/dl Creatinine 1.60 0.60-1.40 mg/dl Est Creatinine Clear Calc Drug Dose 67.8 ml/min Estimated GFR () 55.4 Estimated GFR (Non- 47.8 BUN/Creatinine Ratio 9.9 10-20 Random Glucose 104 70-99 mg/dl Calcium Level 9.5 8.5-10.1 mg/dl Total Bilirubin 1.1 0.2-1 mg/dl Aspartate Amino Transf (AST/SGOT) 55 15-37 U/L Alanine Aminotransferase (ALT/SGPT) 76 12-78 U/L Alkaline Phosphatase 94 45-117 U/L Total Creatine Kinase 445 39-308 U/L Total Protein 7.4 6.4-8.2 gm/dl Albumin 4.0 3.4-5.0 gm/dl Globulin 3.4 2.5-4.0 gm/dl Albumin/Globulin Ratio 1.2 0.9-2 Salicylates Level 3.6 2.8-20 mg/dl Acetaminophen Level < 2 10-30 ug/ml Ethyl Alcohol mg/dL < 3.0 0-3 mg/dl Urine Color DK YELLOW Urine Appearance CLEAR CLEAR Urine pH 5.5 4.5-7.5 Urine Specific [place] 1.022 1.000-1.030 Urine Protein TRACE NEG Urine Glucose (UA) NEG NEG Urine Ketones 2+ NEG Urine Occult Blood NEG NEG Urine Nitrite NEG NEG Urine Bilirubin NEG NEG Urine Urobilinogen NEG NEG Urine Leukocyte Esterase NEG NEG Urine WBC (Auto) 1-5 0-5 /hpf Urine RBC (Auto) 0-4 0-4 /hpf Urine Hyaline Casts (Auto) 5-10 0-5 /lpf Urine Epithelial Cells (Auto) 20-30 0-5 /lpf Urine Bacteria (Auto) NEG NEG Urine Pathogenic Casts 0 /lpf Urine Opiates Screen NEG NEG Urine Methadone, Qualitative NEG NEG Urine Barbiturates NEG NEG Urine Phencyclidine (PCP) Level NEG NEG Ur Amphetamine/Methamphetamine POS NEG MDMA (Ecstasy) Screen POS NEG Urine Benzodiazepines Screen NEG NEG Urine Cocaine Metabolite NEG NEG Urine Marijuana (THC) NEG NEG Normal EKG Impression Assessment and Plan 57-year-old male with a history of meth abuse and apparent overdose with suicidal gesture. This Reports of the patient when the hurt himself comes from Dr. Rosenbaum's note which was reportedly related to him by police. When I asked the patient if he was trying to hurt himself he said maybe. Currently he is too sedated to be safely kept in psych. For his HIV will continue his Travatan trivicay For his depression we'll continue Cymbalta but right for to begin on the For his hypertension we'll hold this at his medications at this time will hydrate him with fluids to replete his hypokalemia and have when necessary antihypertensives available. Patient is a history of glucose intolerance listed as being on metformin his outpatient record his glucose is normal on intake, we'll put him on a diabetic diet and follow his glucose in the morning with a chemistry this is elevated we may begin sliding scale coverage. DVT prevention is SCDs and teds Tobacco abuse we will give him nicotine patch. VTE Prophylaxis VTE Risk Assessment Done? Y/N: Yes Risk Level: Moderate
[2017-05-12 20:13] VITALS: BP 123/81; PULSE 80; TEMP 37; O2SAT 94
[2017-05-12 20:26] VITALS: BP 123/81; PULSE 80; TEMP 37; Ht 190.5 cm; Wt 105.0 kg
[2017-05-12] MEDS ORDERED: HydrALAZINE HCL 20 MG/ML VIAL IV PRN (20:30)
[2017-05-12] MEDS: NICOTINE 14 MG/24 HR TDSY TD SCH (21:01)
[2017-05-12] MEDS: NSS + 20MEQ KCL 1000ML 1,000 ML IV SCH (21:01)
[2017-05-12 23:40] VITALS: BP 131/87; PULSE 90; TEMP 37.1; O2SAT 94
[2017-05-13] VITALS (9 sets, daily range): BP systolic 121–139; BP diastolic 77–88; PULSE 57–78; TEMP 36.4–37.3; O2SAT 94–99
[2017-05-13 06:12] LABS: HEMATOCRIT 45.3 % (42-52); MEAN CELL VOLUME 94.4 fL (80-100); MEAN CORPUSCULAR HEMOGLOBIN 32.9 pg (25-34); MEAN CORPUSCULAR HGB CONC 34.9 g/dl (32-36); MEAN PLATELET VOLUME 10.1 fL (7.4-10.4); PLATELET COUNT 231 K/uL (130-400); WHITE BLOOD COUNT 13.42 K/uL (4.8-10.8)
[2017-05-13 06:36] LABS: BUN/CREATININE RATIO 17.5 (10-20); CALCIUM 8.6 mg/dl (8.5-10.1); CREATININE 1.1 mg/dl (0.60-1.40); POTASSIUM 3.8 mmol/L (3.5-5.1)
[2017-05-13] MEDS: NSS + 20MEQ KCL 1000ML 1,000 ML IV SCH ×2 (06:54→15:34)
[2017-05-13] MEDS: NICOTINE 14 MG/24 HR TDSY TD SCH (07:46)
[2017-05-13] MEDS: EMTRICITABINE/TENOFOVIR TAB PO SCH (07:46)
[2017-05-13] MEDS: DULOXETINE HCL 60 MG CAP PO SCH (07:47)
--- NOTE | 2017-05-13 07:47 | Progress Note ---
Subjective Date of Service: May 13, 2017. Subjective pt is slightly sedate, psychiatry does not feel is a risk to self but strongly encourages voluntary commit to rehab/psyche unit. Pt is having some diarrhea and incontinence of stool, no focal complaints Problem List Medical Problems: (1) Depression Status: Acute (2) Foot pain Status: Acute (3) Hallucinogen overdose Status: Acute (4) Neuropathic pain Status: Acute (5) Suicidal ideation Status: Acute Review of Systems Constitutional: + weakness, + fatigue Respiratory: No cough, No shortness of breath, No dyspnea on exertion Cardiac: No chest pain, No orthopnea, No PND, No edema Abdomen: No pain, No nausea, No vomiting, No diarrhea Neurologic: + weakness, No memory loss, No paralysis Objective Vital Signs Date Time Temp Pulse Resp B/P (MAP) Pulse Ox O2 Delivery O2 Flow Rate FiO2 05/13/17 04:00 96 Room Air 05/13/17 03:45 36.4 78 18 127/82 (97) 96 Room Air 05/13/17 00:00 94 Room Air 05/12/17 23:40 37.1 90 22 131/87 (102) 94 Room Air 05/12/17 20:26 37.0 80 20 123/81 Room Air 05/12/17 20:13 37.0 80 20 123/81 (95) 94 Room Air 05/12/17 20:08 78 16 131/78 97 05/12/17 19:10 78 20 126/80 98 Room Air 05/12/17 16:48 86 05/12/17 16:30 80 18 105/70 97 Room Air 05/12/17 13:41 84 18 126/84 94 Room Air 05/12/17 12:00 94 20 140/78 94 Room Air 05/12/17 11:45 95 16 144/79 95 Room Air 05/12/17 11:30 96 16 133/81 97 Room Air 05/12/17 11:15 98 20 153/84 94 Room Air 05/12/17 11:09 100 17 150/75 94 Room Air 05/12/17 10:47 108 17 141/73 93 Room Air 05/12/17 10:28 108 24 124/69 96 Room Air 05/12/17 10:17 120 05/12/17 10:15 36.6 126 28 141/121 97 Room Air 05/12/17 10:12 124/100 Room Air Physical Exam General Appearance: WD/WN, + mild distress Eyes: PERRL, EOMI ENT: hearing grossly normal, pharynx normal Neck: supple, no JVD Respiratory/Chest: chest non-tender, lungs clear, no accessory muscle use Cardiovascular: regular rate, rhythm, no murmur Abdomen: normal bowel sounds, non tender, soft Extremities: no pedal edema, no calf tenderness Neurologic/Psychiatric: alert, oriented x 3 Skin: normal color, no rash Laboratory Results Last 24 Hours Test 05/12/17 10:58 05/12/17 16:00 05/13/17 05:37 05/13/17 06:15 White Blood Count 15.65 K/uL 13.42 K/uL Red Blood Count 5.05 M/uL 4.80 M/uL Hemoglobin 16.3 g/dL 15.8 g/dL Hematocrit 46.5 % 45.3 % Mean Corpuscular Volume 92.1 fL 94.4 fL Mean Corpuscular Hemoglobin 32.3 pg 32.9 pg Mean Corpuscular Hemoglobin Concent 35.1 g/dl 34.9 g/dl RDW Standard Deviation 42.6 fL 45.4 fL RDW Coefficient of Variation 12.8 % 13.1 % Platelet Count 268 K/uL 231 K/uL Mean Platelet Volume 10.0 fL 10.1 fL Sodium Level 141 mmol/L 140 mmol/L Potassium Level 3.3 mmol/L 3.8 mmol/L Chloride Level 107 mmol/L 107 mmol/L Carbon Dioxide Level 24 mmol/L 26 mmol/L Anion Gap 10.0 mmol/L 7.0 mmol/L Blood Urea Nitrogen 16 mg/dl 19 mg/dl Creatinine 1.60 mg/dl 1.10 mg/dl Est Creatinine Clear Calc Drug Dose 67.8 ml/min 98.3 ml/min Estimated GFR () 55.4 87.1 Estimated GFR (Non- 47.8 75.2 BUN/Creatinine Ratio 9.9 17.5 Random Glucose 104 mg/dl 76 mg/dl Calcium Level 9.5 mg/dl 8.6 mg/dl Total Bilirubin 1.1 mg/dl Aspartate Amino Transf (AST/SGOT) 55 U/L Alanine Aminotransferase (ALT/SGPT) 76 U/L Alkaline Phosphatase 94 U/L Total Creatine Kinase 445 U/L 234 U/L Total Protein 7.4 gm/dl Albumin 4.0 gm/dl Globulin 3.4 gm/dl Albumin/Globulin Ratio 1.2 Salicylates Level 3.6 mg/dl Acetaminophen Level < 2 ug/ml Ethyl Alcohol mg/dL < 3.0 mg/dl Urine Color DK YELLOW Urine Appearance CLEAR Urine pH 5.5 Urine Specific [place] 1.022 Urine Protein TRACE Urine Glucose (UA) NEG Urine Ketones 2+ Urine Occult Blood NEG Urine Nitrite NEG Urine Bilirubin NEG Urine Urobilinogen NEG Urine Leukocyte Esterase NEG Urine WBC (Auto) 1-5 /hpf Urine RBC (Auto) 0-4 /hpf Urine Hyaline Casts (Auto) 5-10 /lpf Urine Epithelial Cells (Auto) 20-30 /lpf Urine Bacteria (Auto) NEG Urine Pathogenic Casts /lpf Urine Opiates Screen NEG Urine Methadone, Qualitative NEG Urine Barbiturates NEG Urine Phencyclidine (PCP) Level NEG Ur Amphetamine/Methamphetamine POS MDMA (Ecstasy) Screen POS Urine Benzodiazepines Screen NEG Urine Cocaine Metabolite NEG Urine Marijuana (THC) NEG Test 05/13/17 07:17 Bedside Glucose 92 mg/dl Assessment and Plan 57-year-old male with a history of meth abuse and apparent overdose with suicidal gesture. Reports of the patient when the hurt himself comes from Dr. Rosenbaum's note which was reportedly related to him by police. When I asked the patient if he was trying to hurt himself he said maybe. Today the pt is stating he wants help and he is not at risk for self harm For his HIV will continue his Travatan and tivicay For his depression restarted on Cymbalta by psychiatry 05/13 hypertension resume lisinopril 05/14 Patient is a history of glucose intolerance he is on a diabetic diet. DVT prevention is SCDs and teds Tobacco abuse we will give him nicotine patch.
--- NOTE | 2017-05-13 11:43 | INFECT. DISEASE CONSULTATION ---
DATE OF CONSULTATION: 05/13/2017 DATE OF CONSULTATION: 05/13/2017. REQUESTING PHYSICIAN: Dr. Mejia. REASON FOR CONSULTATION: HIV medication approval. HISTORY OF PRESENT ILLNESS: This is a 57-year-old gentleman who was brought to the hospital after he had taken a significant amount of methamphetamine. He is feeling much better today. ID was consulted to review HIV medications and give approval. He was placed on Tivicay and Truvada by Dr. Gregory 7-8 months ago. He states he has been tolerating these medications well. He states his last visit with infectious diseases was a few months ago and he normally follows on an every 6 month basis. He states his CD4 count was over 1000 and he was undetectable. He states he has had adherence with his medication and has not missed any doses. He does plan to follow with Dr. Gregory in the next few months upcoming. He has not had any fevers or chills. He denies any weight loss. He has no abdominal pain. He has no urinary complaints. He denies any chest pain, cough or shortness of breath. His remaining review of systems is unremarkable. PAST MEDICAL HISTORY: Significant for benign orbital tumor, HIV on medication and neuropathy, hypertension, depression. PAST SURGICAL HISTORY: Significant for ACL repair. FAMILY HISTORY: Noncontributory. SOCIAL HISTORY: Significant for daily tobacco use. He denies any drug use but did have methamphetamine prior to admission. ALLERGIES: HE HAS AN ALLERGY TO PENICILLIN. CURRENT MEDICATIONS: Include Cymbalta, Truvada, Tivicay which he is taking from home, nicotine patch, hydralazine, Tylenol and Zofran. PHYSICAL EXAMINATION: VITAL SIGNS: She is afebrile, pulse 72, respiratory rate is 20, blood pressure is 121/80 and oxygen saturation is 97% on room air. GENERAL: He is awake, alert and oriented x3. He is in no acute distress. HEAD, EYES, EARS, NOSE, AND THROAT: Mucous membranes are moist. Extraocular muscles are intact. HEART: Regular. LUNGS: Clear bilaterally. ABDOMEN: Soft, nontender, nondistended. There is no edema. SKIN: Without rash. LABORATORY STUDIES: CBC today reveals a white blood cell count of 13.4, hemoglobin 15.8 and platelets are 231. Chemistry panel reveals a sodium of 140, potassium 3.8, chloride 107, bicarbonate 26, BUN 19, creatinine 1.1, glucose is 92. LFTs are within normal limits. Urinalysis unremarkable. Urine drug screen was positive for methamphetamines and ecstasy. There is no imaging to review. ASSESSMENT AND PLAN: Human immunodeficiency virus on antiretroviral. He can continue his Truvada and Tivicay as prescribed and he plans to follow up with Dr. Gregory upon discharge from the hospital. There are no further ID recommendations at this time. Thank you for this consultation.
--- NOTE | 2017-05-13 11:47 | Progress Note ---
Progress Note Date of Service May 13, 2017. Progress Note ID Consult Dictated # [id number] A/P 1. HIV on HAART -continue current HIV meds, follow with Dr. Gregory in office as scheduled -No new ID recs, thank you
--- NOTE | 2017-05-13 15:28 | Medical Student: [facility] ---
Consultation Date of Consultation: May 13, 2017. Requesting Physician: Dr. Mejia Attending Physician: Dr. Mejia Reason for Consultation: Self harm History of Present Illness Identifying Data: Mr. Dru Juárez (Tom) is a 57 year old male from [place] who was brought to the ER by police on following a methamphetamine binge and verbal altercation with his family. His sister, Peggy Tidwell, filed a 302 petition. CC: "drug use and psychotic behavior" HPI: Jordi Juárez is a 57 year old male with a PMH of benign orbital tumor, HIV (human immunodeficiency virus infection), Neuropathy, hypertension, depression, and ADHD who was brought to the ER on 05/12/17 by police. He describes a verbal altercation between himself and his two sisters who were present. He denies any violence. During the altercation, he stated, "I'm going to end it all " and then proceeded to get razor blades. He did not have any specific trigger than started the argument. In the emergency room, he was given Haldol 5mg IM once and Ativan 2 mg IV once due to his agitation. Today, he reports that he feels groggy and does not feel quite like himself. He reports feeling "mildly depressed," and endorses feelings of increased sleep, loss of interest, guilt for letting his family down, decreased energy and "sluggishness," wandering thoughts, trouble concentrating, and feeling "heavy." He denies appetite changes. He denies any suicidal ideations today. He reports that he had suicidal ideations in the past, but that these were more fleeting ideas that were not serious. He denies ever having a plan to harm himself and states that he would not act on these feelings. When describing his methamphetamine use, he states he had been clean for 18 years, but started using again 8 months ago. He describes waves of use. He is motivated to quit because " I am too old for this and now it got me in the hospital." He expressed interest in rehabilitation programs. In the past, he attended meetings but found them minimally beneficial. He describes voices that he occasionally hears, but is unable to clarify if these are when sober or when using methamphetamines. The voices are male and female and do not tell him to perform any actions. He repots a history of anxiety, but does not feel anxious today. He denies chest pain, palpitations, or history of panic attacks. He denies history of eating disorder, OCD, or PTSD. Denies any history of head injury or seizures. Past Medical/Surgical History Medical History: Past Psych History Current OP Treatment: none. thee managed by PCP Past psychiatrist: in [facility], but he cannot recall the name as it was years ago Therapist: none, but would be open to one in the future athletic equipment manager: Jose E Patton - HIV management Prior Psych Hospitalizations: none Access to a Gun: No Suicide Attempts: No Past Medication Trials: Zoloft and other "anti-anxiety meds" Past Medical history benign orbital tumor HIV (human immunodeficiency virus infection) Neuropathy hypertension depression ADHD Family History Family psychiatric history: Father- depression Brother - marijuana use Denies family history of suicide Social History Smoking Status: Current Every Day Smoker History of Alcohol Use: Yes (OCCASIONALLY) Drug Use: none Marital Status: single Housing Status: lives with family (mother ) Occupation Status: unemployed Smoking Status: Former Smoker, just under 1 ppd for past 35 years. History of Alcohol Use: No Drug Use: Methamphetamine use. Reports that he has been using for past 8 months. He was clean for previous 18 years. He describes his drug use as "comes in waves" over the past eight months. He denies use of any other recreational drug or inappropriate use of prescribed mediation. 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 Relationships: 1 brother, 3 sisters, no children Spiritual: yes, but not christian Legal: denied Psych trauma/abuse: denied Review of Systems Constitutional: No fever, No chills Eyes: No worsening of vision, No redness ENT: No hearing loss, No sore throat Respiratory: No cough, No shortness of breath Cardiac: No chest pain, No palpitations Abdomen: + diarrhea (4 episodes overnight ), No pain, No nausea, No vomiting Male : No dysuria, No urinary frequency Neurologic: No memory loss, No weakness Psychiatric: + depression symptoms, + anhedonism, + anxiety, + substance abuse (methamphetamines), No insomnia Heme: No abnormal bleeding/bruising, No clotting problems Endo: No excessive thirst, No excessive urination Skin: No rash, No new/changing skin lesions Allergies Coded Allergies: Penicillins (Unverified Allergy, Severe, ANAPHYLAXIS, 11/16/16) Medications Current Psych Meds: Cymbalta 60 mg daily - has been on his dose for years, managed by PCP Neurontin 400 mg qhs Ritalin 20 mg BID - states this is for "fatigue" Current Inpatient Medications Medications (Trade) Dose Ordered Sig/Rosario Route Start Time Stop Time Status Last Admin Dose Admin Potassium Chloride/Sodium Chloride 1,000 ml @ 100 mls/hr Q10H IV 05/12/17 21:00 06/11/17 19:28 05/13/17 06:54 100 MLS/HR Acetaminophen (Tylenol Tab) 650 mg Q4H PRN PO 05/12/17 19:30 06/11/17 19:29 Ondansetron HCl (Zofran Inj) 4 mg Q6H PRN IV 05/12/17 19:30 06/11/17 19:29 Duloxetine HCl (Cymbalta Cap) 60 mg DAILY PO 05/13/17 09:00 06/12/17 08:59 05/13/17 07:47 60 MG Emtricitabine/ Tenofovir (Truvada 200-300mg Tab) 1 tab DAILY PO 05/13/17 09:00 06/12/17 08:59 05/13/17 07:46 1 TAB Miscellaneous Information (Order Awaiting Action) 1 ea QS N/A 05/13/17 00:00 06/12/17 00:00 Nicotine (Nicoderm Cq 14MG Patch) 1 patch QAM TD 05/12/17 19:45 06/11/17 19:44 05/12/17 21:01 1 PATCH Miscellaneous (Remove Nicoderm Patch) 1 ea HS N/A 05/12/17 21:00 06/11/17 20:59 05/13/17 00:00 1 EA Hydralazine HCl (HydrALAZINE INJ) 10 mg Q4H PRN IV 05/12/17 20:30 06/11/17 20:29 Physical Exam Date Time Temp Pulse Resp B/P (MAP) Pulse Ox O2 Delivery O2 Flow Rate FiO2 05/13/17 12:00 Room Air 05/13/17 10:35 37.0 69 20 122/77 (92) 97 Room Air 05/13/17 08:00 Room Air 05/13/17 07:27 36.5 72 20 121/80 (94) 97 Room Air 05/13/17 04:00 96 Room Air 05/13/17 03:45 36.4 78 18 127/82 (97) 96 Room Air 05/13/17 00:00 94 Room Air 05/12/17 23:40 37.1 90 22 131/87 (102) 94 Room Air 05/12/17 20:26 37.0 80 20 123/81 Room Air 05/12/17 20:13 37.0 80 20 123/81 (95) 94 Room Air 05/12/17 20:08 78 16 131/78 97 05/12/17 19:10 78 20 126/80 98 Room Air 05/12/17 16:48 86 05/12/17 16:30 80 18 105/70 97 Room Air A physical exam was performed by primary team. I accept that physical as correct/medical clearance for the inpatient physical exam. Mental Status Exam: During interview pt is: lying in bed, very cooperative with questioning but occasionally falling asleep during the conversation Appearance: poor dentition Eye contact is: good Motor behavior is: No abnormal motor movements. No tremors. No psychomotor retardation. Speech: regular rate and regular rhythm. Affect: blunted Mood is: "mildly depressed" Thought process: logical, clear, and without delusions, confabulations, or perseverations. no flight of ideas Thought content: No SI/HI Suicidal thought are: denied Homicidal thoughts are: denied Hallucinations: denied Cognition: language grossly intact, good attention and concentration Intelligence estimated to be: average Insight: poor Judgement: poor Laboratory Results Last 24 Hours Test 05/12/17 16:00 05/13/17 05:37 05/13/17 06:15 05/13/17 07:17 Urine Color DK YELLOW Urine Appearance CLEAR Urine pH 5.5 Urine Specific [place] 1.022 Urine Protein TRACE Urine Glucose (UA) NEG Urine Ketones 2+ Urine Occult Blood NEG Urine Nitrite NEG Urine Bilirubin NEG Urine Urobilinogen NEG Urine Leukocyte Esterase NEG Urine WBC (Auto) 1-5 /hpf Urine RBC (Auto) 0-4 /hpf Urine Hyaline Casts (Auto) 5-10 /lpf Urine Epithelial Cells (Auto) 20-30 /lpf Urine Bacteria (Auto) NEG Urine Pathogenic Casts /lpf Urine Opiates Screen NEG Urine Methadone, Qualitative NEG Urine Barbiturates NEG Urine Phencyclidine (PCP) Level NEG Ur Amphetamine/Methamphetamine POS MDMA (Ecstasy) Screen POS Urine Benzodiazepines Screen NEG Urine Cocaine Metabolite NEG Urine Marijuana (THC) NEG White Blood Count 13.42 K/uL Red Blood Count 4.80 M/uL Hemoglobin 15.8 g/dL Hematocrit 45.3 % Mean Corpuscular Volume 94.4 fL Mean Corpuscular Hemoglobin 32.9 pg Mean Corpuscular Hemoglobin Concent 34.9 g/dl RDW Standard Deviation 45.4 fL RDW Coefficient of Variation 13.1 % Platelet Count 231 K/uL Mean Platelet Volume 10.1 fL Sodium Level 140 mmol/L Potassium Level 3.8 mmol/L Chloride Level 107 mmol/L Carbon Dioxide Level 26 mmol/L Anion Gap 7.0 mmol/L Blood Urea Nitrogen 19 mg/dl Creatinine 1.10 mg/dl Est Creatinine Clear Calc Drug Dose 98.3 ml/min Estimated GFR () 87.1 Estimated GFR (Non- 75.2 BUN/Creatinine Ratio 17.5 Random Glucose 76 mg/dl Calcium Level 8.6 mg/dl Total Creatine Kinase 234 U/L Bedside Glucose 92 mg/dl Test 05/13/17 11:51 Bedside Glucose 100 mg/dl Assessment & Plan ASSESSMENT: Dru Juárez is a 57 year old male with history of HIV (human immunodeficiency virus infection), Neuropathy, depression, and ADHD who was brought to the ER for methamphetamine abuse. He expressed suicidal ideations at the time of admission, but denies these thoughts presently. He expresses depressive symptoms as well with a PHQ-9 score of 12, which is positive for mild depression. RECOMMENDATIONS: 1. Substance abuse disorder, methamphetamine use Patient is agreeable to an inpatient rehabilitation program He is contemplative on the stages of change model for behavior chance Monitor for withdrawal symptoms 2. Suicidal ideations Patient denies suicidal ideations today I spoke with the patient sister, Peggy, who filed the 302 petition. She described that the patients drug use has been new, within the last 3-4 months. She denies any history for her brother with suicidal ideations outside of this one incident. She states that her biggest concern is that if her brother is intoxicated and hallucinating, she does not want him to accidentally harm his mother thinking that she is someone else. She believes that he would not harm his mother otherwise. Monitor for expression of SI No indication for 1-on-1 observation at this time. 3. Depression -Continue Cymbalta 60 mg -PHQ-9 of 12 on 05/13/17 -Monitor PHQ-9 4. ADHD -Continue Ritalin 20mg BID 5. Tobacco use -Offer nicotine patches 14 mg -Monitor for withdrawal symptoms
--- NOTE | 2017-05-13 15:47 | Psychiatric Consultation ---
Psychiatric Consultation Identifying Data: Mr. Dru Juárez (Tom) is a 57 year old male from [place] who was brought to the ER by police on following a methamphetamine binge and verbal altercation with his family. His sister, Peggy Tidwell, completed a 302 petition in case he attempted to not cooperate with assessment. CC: "I used meth" HPI: Jordi Juárez is a 57 year old male with a PMH of benign orbital tumor, HIV (human immunodeficiency virus infection), Neuropathy, hypertension, depression, and ADHD who was brought to the ER on 05/12/17 by police. He describes a verbal altercation between himself and his two sisters. He denies any violence. During the altercation, he stated, "I'm going to end it all" and then proceeded to get razor blades. He did not have any specific trigger than started the argument. In the emergency room, he was given Haldol 5mg IM once and Ativan 2 mg IV once due to his agitation. Today, he reports that he feels groggy. He told THOMAS Turcios that he' s felt "mildly depressed," and endorses feelings of increased sleep, loss of interest, guilt for letting his family down, decreased energy and "sluggishness, " wandering thoughts, trouble concentrating, and feeling "heavy." He denies appetite changes. He denies any suicidal ideations today. He denies ever having a plan to harm himself and states that he would not act on these feelings. When describing his methamphetamine use, he states he had been clean for 18 years, but started using again 8 months ago. He describes mainly binges vs daily use. He is motivated to quit because " I am too old for this and now." In the past, he attended meetings but found them minimally beneficial. He has experienced non-specific auditory nobles (man and woman's voice), likely in between intoxications and they have never been command in nature. Past Medical/Surgical History Medical History: Past Psych History Current OP Treatment: none. cymbalta managed by PCP Past psychiatrist: in [facility], but he cannot recall the name as it was years ago Therapist: none, but would be open to one in the future route service manager: Jose E Patton - HIV management Prior Psych Hospitalizations: none Access to a Gun: No Suicide Attempts: No Past Medication Trials: Zoloft and other "anti-anxiety meds" Past Medical history benign orbital tumor HIV (human immunodeficiency virus infection) Neuropathy hypertension depression ADHD Family History Family psychiatric history: Father- depression Brother - marijuana use Denies family history of suicide Social History Smoking Status: Current Every Day Smoker History of Alcohol Use: Yes (OCCASIONALLY) Drug Use: none Marital Status: single Housing Status: lives with family (mother ) Occupation Status: unemployed History of Alcohol Use: No Drug Use: Methamphetamine use as above, denies other substances. Marital Status: single Housing Status: lives with his mother Education: Has a bachelors degree in [employer] 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 Allergies Coded Allergies: Penicillins (Unverified Allergy, Severe, ANAPHYLAXIS, 11/16/16) Medications Current Psych Meds: Cymbalta 60 mg daily - has been on his dose for "years", managed by PCP Neurontin 400 mg qhs Ritalin 20 mg BID - states this is for "fatigue" Current Inpatient Medications Medications (Trade) Dose Ordered Sig/Rosario Route Start Time Stop Time Status Last Admin Dose Admin Potassium Chloride/Sodium Chloride 1,000 ml @ 100 mls/hr Q10H IV 05/12/17 21:00 06/11/17 19:28 05/13/17 06:54 100 MLS/HR Acetaminophen (Tylenol Tab) 650 mg Q4H PRN PO 05/12/17 19:30 06/11/17 19:29 Ondansetron HCl (Zofran Inj) 4 mg Q6H PRN IV 05/12/17 19:30 06/11/17 19:29 Duloxetine HCl (Cymbalta Cap) 60 mg DAILY PO 05/13/17 09:00 06/12/17 08:59 05/13/17 07:47 60 MG Emtricitabine/ Tenofovir (Truvada 200-300mg Tab) 1 tab DAILY PO 05/13/17 09:00 06/12/17 08:59 05/13/17 07:46 1 TAB Miscellaneous Information (Order Awaiting Action) 1 ea QS N/A 05/13/17 00:00 06/12/17 00:00 Nicotine (Nicoderm Cq 14MG Patch) 1 patch QAM TD 05/12/17 19:45 06/11/17 19:44 05/12/17 21:01 1 PATCH Miscellaneous (Remove Nicoderm Patch) 1 ea HS N/A 05/12/17 21:00 06/11/17 20:59 05/13/17 00:00 1 EA Hydralazine HCl (HydrALAZINE INJ) 10 mg Q4H PRN IV 05/12/17 20:30 06/11/17 20:29 Physical Exam Date Time Temp Pulse Resp B/P (MAP) Pulse Ox O2 Delivery O2 Flow Rate FiO2 05/13/17 12:00 Room Air 05/13/17 10:35 37.0 69 20 122/77 (92) 97 Room Air 05/13/17 08:00 Room Air 05/13/17 07:27 36.5 72 20 121/80 (94) 97 Room Air 05/13/17 04:00 96 Room Air 05/13/17 03:45 36.4 78 18 127/82 (97) 96 Room Air 05/13/17 00:00 94 Room Air 05/12/17 23:40 37.1 90 22 131/87 (102) 94 Room Air 05/12/17 20:26 37.0 80 20 123/81 Room Air 05/12/17 20:13 37.0 80 20 123/81 (95) 94 Room Air 05/12/17 20:08 78 16 131/78 97 05/12/17 19:10 78 20 126/80 98 Room Air 05/12/17 16:48 86 05/12/17 16:30 80 18 105/70 97 Room Air Mental Status Exam: During interview pt is: lying in bed, very cooperative with questioning but occasionally falling asleep during the conversation Appearance: poor dentition Eye contact is: good Motor behavior is: No abnormal motor movements. No tremors. No psychomotor retardation. Speech: regular rate and regular rhythm. Affect: blunted Mood is: "mildly depressed", 12 on PHQ-9 Thought process: logical, clear, and without delusions, confabulations, or perseverations. no flight of ideas Thought content: No SI/HI Suicidal thought are: denied Homicidal thoughts are: denied Hallucinations: denied Cognition: language grossly intact, attention impaired, decreased memory, decreased concentration Intelligence estimated to be: average Insight: poor Judgement: poor Laboratory Results Last 24 Hours Test 05/12/17 16:00 05/13/17 05:37 05/13/17 06:15 05/13/17 07:17 Urine Color DK YELLOW Urine Appearance CLEAR Urine pH 5.5 Urine Specific [place] 1.022 Urine Protein TRACE Urine Glucose (UA) NEG Urine Ketones 2+ Urine Occult Blood NEG Urine Nitrite NEG Urine Bilirubin NEG Urine Urobilinogen NEG Urine Leukocyte Esterase NEG Urine WBC (Auto) 1-5 /hpf Urine RBC (Auto) 0-4 /hpf Urine Hyaline Casts (Auto) 5-10 /lpf Urine Epithelial Cells (Auto) 20-30 /lpf Urine Bacteria (Auto) NEG Urine Pathogenic Casts /lpf Urine Opiates Screen NEG Urine Methadone, Qualitative NEG Urine Barbiturates NEG Urine Phencyclidine (PCP) Level NEG Ur Amphetamine/Methamphetamine POS MDMA (Ecstasy) Screen POS Urine Benzodiazepines Screen NEG Urine Cocaine Metabolite NEG Urine Marijuana (THC) NEG White Blood Count 13.42 K/uL Red Blood Count 4.80 M/uL Hemoglobin 15.8 g/dL Hematocrit 45.3 % Mean Corpuscular Volume 94.4 fL Mean Corpuscular Hemoglobin 32.9 pg Mean Corpuscular Hemoglobin Concent 34.9 g/dl RDW Standard Deviation 45.4 fL RDW Coefficient of Variation 13.1 % Platelet Count 231 K/uL Mean Platelet Volume 10.1 fL Sodium Level 140 mmol/L Potassium Level 3.8 mmol/L Chloride Level 107 mmol/L Carbon Dioxide Level 26 mmol/L Anion Gap 7.0 mmol/L Blood Urea Nitrogen 19 mg/dl Creatinine 1.10 mg/dl Est Creatinine Clear Calc Drug Dose 98.3 ml/min Estimated GFR () 87.1 Estimated GFR (Non- 75.2 BUN/Creatinine Ratio 17.5 Random Glucose 76 mg/dl Calcium Level 8.6 mg/dl Total Creatine Kinase 234 U/L Bedside Glucose 92 mg/dl Test 05/13/17 11:51 Bedside Glucose 100 mg/dl Plan: MSIII/liaison spoke with sister/petitioner and she confirms that no prior acts of aggression/self harm and was made aware that certain acts/ statements if made while intoxicated are not criteria for inpatient mental health admission, particularly on an involuntary commitment if related to substance abuse. She reportedly stated that she mainly wanted him to get help and hopes he agrees to a rehab program. Razors at home are secure. Given severity of symptoms overnight would suggest inpatient rehab. If he is to be discharged to an outpatient program instead, please notify consult service liaison in case additional safety planning/psychological follow-up is needed. Can resume Cymbalta, dose should likely be titrated to address residual depression. He should NOT be restarted on Ritalin in setting of active meth abuse. Patient stated his is agreeable to rehab.
[2017-05-13] MEDS ORDERED: DULOXETINE (CYMBALTA) 30 MG CAP PO ONE (16:00)
[2017-05-13] MEDS ORDERED: MAGNESIUM SULFATE 1GM / D5W 1 GM in PREMIXED IN D5W 100 ML IV ONE (17:30)
[2017-05-14] VITALS: O2SAT 97
[2017-05-14] MEDS: NSS + 20MEQ KCL 1000ML 1,000 ML IV SCH (01:41)
[2017-05-14 03:48] VITALS: BP 132/86; PULSE 62; TEMP 37; O2SAT 98
[2017-05-14 04:00] VITALS: O2SAT 98
[2017-05-14] MEDS: NICOTINE 14 MG/24 HR TDSY TD SCH (06:41)
[2017-05-14] MEDS: DULOXETINE HCL 60 MG CAP PO SCH (07:40)
[2017-05-14] MEDS: EMTRICITABINE/TENOFOVIR TAB PO SCH (07:40)
[2017-05-14 08:31] VITALS: BP 144/88; PULSE 61; TEMP 37.3; O2SAT 98
[2017-05-14] MEDS ORDERED: DULOXETINE HCL 60 MG CAP PO SCH (09:00)
[2017-05-14] MEDS ORDERED: LISINOPRIL 20 MG TAB PO SCH (09:00)
[2017-05-14] MEDS ORDERED: NURSING VERBAL MED ORDER ONE (10:00)
[2017-05-14 12:17] VITALS: BP 137/84; PULSE 53; TEMP 36.6; O2SAT 98
--- NOTE | 2017-05-14 12:23 | Discharge Instructions ---
Discharge Instructions Date of Service May 14, 2017. Admission Reason for Admission: Methamphetamine Abuse, Overdose Self Harm Discharge Discharge Diagnosis / Problem: methamphetamine overdose Discharge Goals Goal(s): Therapeutic intervention Activity Recommendations Activity Limitations: resume your previous activity . Current Hospital Diet Patient's current hospital diet: Diabetes Type 2 Diet Discharge Diet Recommended Diet: Regular Diet Pending Studies Studies pending at discharge: no Medical Emergencies . Who to Call and When: Medical Emergencies: If at any time you feel your situation is an emergency, please call 911 immediately. . Non-Emergent Contact Non-Emergency issues call your: Primary Care Provider, Specialist (psychiatry and psychology) Call Non-Emergent contact if: temperature is above 101, your pain is unusual for you . . "Provider Documentation" section prepared by Dru Mejia. . Fuel Injection Servicer Recommendations Fuel Injection Servicer Recommendations: Please strongly consider inpatient rehab for substance abuse Javier vicente concelling Please call [facility], to arrange outpt follow up [phone] VTE Core Measure Inpt VTE Proph given/why not?: SCD's
[2017-05-14 12:32] VITALS: BP 137/84; PULSE 53; TEMP 36.6; O2SAT 98
--- NOTE | 2017-05-14 17:36 | Discharge Summary ---
Discharge Summary Date of Service May 14, 2017. Discharge Summary Admission Date: May 12, 2017 at 19:34 Discharge Date: May 14, 2017 Discharge Disposition: Home Principal Diagnosis: methaphetamine overdose Consultations: psychiatry with dr salas Medication Reconciliation Continued Medications: Dolutegravir Sodium (Tivicay) Unknown Strength Tab 1 TAB PO DAILY Duloxetine Hcl (Cymbalta) 60 Mg Cap 60 MG PO DAILY, CAP Emtricitabine/Temofovir (Truvada 200/300MG) Tab 1 TAB PO DAILY, TAB Gabapentin (Neurontin) 800 Mg Tab 2400 MG PO HS, TAB Lisinopril/Hctz (Zestoretic 20MG/25MG) Tab 1 TAB PO DAILY, TAB Discontinued Medications: Methylphenidate (Ritalin) 10 Mg Tab 20 MG PO BID Discharge Exam Review of Systems: Constitutional: No fever, No chills Respiratory: No cough, No sputum Cardiovascular: No chest pain, No orthopnea Abdomen: No pain, No nausea, No vomiting, No diarrhea Genitourinary - Male: No hematuria, No dysuria, No urinary frequency Psychiatric: No depression symptoms, No anhedonism Hospital Course 57-year-old male with a history of meth abuse and apparent overdose Reports of the patient when the hurt himself comes from Dr. Rosenbaum's note which was reportedly related to him by police. When I asked the patient if he was trying to hurt himself he said maybe. after he awoke he is remorse and states he does not remember wanting to harm himself and wants to get help, will arrange for outpt rehab, and call for formal psychiatry follow up For his HIV will continue his Travatan trivicay, was seen by Dr Granda in Dr Moore absence For his depression we'll continue Cymbalta For his hypertension lisinopril hctz DVT prevention is SCDs and teds Tobacco abuse counselled Total Time Spent: Greater than 30 minutes This includes examination of the patient, discharge planning, medication reconciliation, and communication with other providers. Discharge Instructions Please refer to the electronic Patient Visit Report (Discharge Instructions) for additional information.
[2017-05-19 14:43] LABS: SYNTHETIC CANNABINOIDS QL URIN NEGATIVE (Negative)
== END 2017-05-14 13:27 | disposition home or self-care (01) | DRG 917 ==
LOC: EDBD 09:54 → EDSEX 09:54 → C.EDB 09:56 → C.2T 19:34 → ENRESERV 19:45
PROVIDERS: ADMIT Internal Medicine; ATTEND Internal Medicine
DX: T40.904A Poisoning by unspecified psychodysleptics [hallucinogens], undetermined, initial encounter (principal); B20 Human immunodeficiency virus [HIV] disease; R45.851 Suicidal ideations; F32.9 Major depressive disorder, single episode, unspecified; F17.200 Nicotine dependence, unspecified, uncomplicated; F90.9 Attention-deficit hyperactivity disorder, unspecified type

== ENCOUNTER 2017-06-20 09:11 | Inpatient (IN) | payer OTHER ==
[~2017-06-20] VITALS: Ht 190.5 cm; Wt 102.1 kg
[~2017-06-20 09:11] MED LIST changes: +GABA800T PO; -METH10TA4 PO; -NRN/600 PO; -VALA500T60 PO
--- NOTE | 2017-06-20 09:50 | EMERGENCY ROOM VISIT NOTE ---
History Report prepared by Amrik: Shari Dorantes Under the Supervision of: Dr. Uche Mcfarlane M.D. First contact with patient: 09:32 Chief Complaint: MENTAL HEALTH EVALUATION Stated Complaint: MENTAL HEALTH EVAL History of Present Illness The patient is a 57 year old white male with a past medical history of HIV who presents to the ED with a cc of suicidal ideations beginning a month ago. The pt states that was hospitalized previously for suicidal ideations. He states that he has a plan to kill himself using razor blades. The pt states his last drug use was crystal meth four days ago. Source of History: patient Onset: a month ago Position: other (generalized) Review of Systems See HPI for pertinent positives and negatives. A total of ten systems were reviewed and were otherwise negative. Past Medical & Surgical Medical Problems: (1) Depression (2) History of benign orbital tumor (3) HIV (human immunodeficiency virus infection) (4) Methamphetamine abuse (5) Neuropathy (6) overdose, self harm (7) Suicidal ideation Family History no pertinent family history stated Social History Smoking Status: Current Every Day Smoker Alcohol Use: occasionally Drug Use: other (Crystal meth) Marital Status: single Housing Status: lives with family Occupation Status: unemployed Current/Historical Medications Scheduled Dolutegravir Sodium (Tivicay), 1 TAB PO DAILY Duloxetine Hcl (Cymbalta), 60 MG PO DAILY Emtricitabine/Temofovir (Truvada 200/300MG), 1 TAB PO DAILY Gabapentin (Neurontin), 2,400 MG PO HS Lisinopril/Hctz (Zestoretic 20MG/25MG), 1 TAB PO DAILY Allergies Coded Allergies: Penicillins (Unverified Allergy, Severe, ANAPHYLAXIS, 11/16/16) Physical Exam Vital Signs Date Time Temp Pulse Resp B/P (MAP) Pulse Ox O2 Delivery O2 Flow Rate FiO2 06/20/17 13:26 76 20 102/88 97 06/20/17 13:05 76 20 102/88 97 Room Air 06/20/17 11:02 72 18 144/66 97 Room Air 06/20/17 09:16 36.8 74 20 156/96 95 Room Air Physical Exam GENERAL: Awake, alert, well-appearing, NAD, tearful EYES: Normal conjunctiva. Sclera non-icteric. NECK: Supple. No nuchal rigidity. FROM. RESPIRATORY: CTAB, no rhonchi, wheezing, crackles CARDIAC: RRR, no MRG ABDOMEN: Soft, NTND, BS+ MSK: No chest wall TTP, no LE edema NEURO: GCS 15, CN 2-12 intact, moves all 4s on command SKIN: No rash or jaundice noted. Medical Decision & Procedures Laboratory Results 06/20/17 09:54 Red Blood Count 5.24, Mean Corpuscular Volume 89.7, Mean Corpuscular Hemoglobin 32.4, Mean Corpuscular Hemoglobin Concent 36.2, Mean Platelet Volume 9.7, Neutrophils (%) (Auto) 66.9, Lymphocytes (%) (Auto) 20.1, Monocytes (%) (Auto) 10.2, Eosinophils (%) (Auto) 2.1, Basophils (%) (Auto) 0.4, Neutrophils # (Auto ) 9.47, Lymphocytes # (Auto) 2.84, Monocytes # (Auto) 1.44, Eosinophils # (Auto ) 0.29, Basophils # (Auto) 0.05 06/20/17 09:54 Test 06/20/17 09:25 06/20/17 09:54 06/20/17 10:02 Urine Color YELLOW Urine Appearance CLEAR (CLEAR) Urine pH 6.0 (4.5-7.5) Urine Specific [place] 1.018 (1.000-1.030) Urine Protein NEG (NEG) Urine Glucose (UA) TRACE (NEG) Urine Ketones NEG (NEG) Urine Occult Blood NEG (NEG) Urine Nitrite NEG (NEG) Urine Bilirubin NEG (NEG) Urine Urobilinogen NEG (NEG) Urine Leukocyte Esterase SMALL (NEG) Urine WBC (Auto) 5-10 /hpf (0-5) Urine RBC (Auto) 0-4 /hpf (0-4) Urine Hyaline Casts (Auto) 0 /lpf (0-5) Urine Epithelial Cells (Auto) 0-5 /lpf (0-5) Urine Bacteria (Auto) NEG (NEG) Urine Opiates Screen NEG (NEG) Urine Methadone, Qualitative NEG (NEG) Urine Barbiturates NEG (NEG) Urine Phencyclidine (PCP) Level NEG (NEG) Ur Amphetamine/Methamphetamine POS (NEG) MDMA (Ecstasy) Screen NEG (NEG) Urine Benzodiazepines Screen NEG (NEG) Urine Cocaine Metabolite NEG (NEG) Urine Marijuana (THC) NEG (NEG) White Blood Count 14.13 K/uL (4.8-10.8) Red Blood Count 5.24 M/uL (4.7-6.1) Hemoglobin 17.0 g/dL (14.0-18.0) Hematocrit 47.0 % (42-52) Mean Corpuscular Volume 89.7 fL (80-100) Mean Corpuscular Hemoglobin 32.4 pg (25-34) Mean Corpuscular Hemoglobin Concent 36.2 g/dl (32-36) Platelet Count 298 K/uL (130-400) Mean Platelet Volume 9.7 fL (7.4-10.4) Neutrophils (%) (Auto) 66.9 % Lymphocytes (%) (Auto) 20.1 % Monocytes (%) (Auto) 10.2 % Eosinophils (%) (Auto) 2.1 % Basophils (%) (Auto) 0.4 % Neutrophils # (Auto) 9.47 K/uL (1.4-6.5) Lymphocytes # (Auto) 2.84 K/uL (1.2-3.4) Monocytes # (Auto) 1.44 K/uL (0.11-0.59) Eosinophils # (Auto) 0.29 K/uL (0-0.5) Basophils # (Auto) 0.05 K/uL (0-0.2) RDW Standard Deviation 41.3 fL (36.4-46.3) RDW Coefficient of Variation 12.7 % (11.5-14.5) Immature Granulocyte % (Auto) 0.3 % Immature Granulocyte # (Auto) 0.04 K/uL (0.00-0.02) Anion Gap 9.0 mmol/L (3-11) Est Creatinine Clear Calc Drug Dose 98.9 ml/min Estimated GFR () 87.1 Estimated GFR (Non- 75.2 BUN/Creatinine Ratio 11.6 (10-20) Calcium Level 8.8 mg/dl (8.5-10.1) Total Bilirubin 0.7 mg/dl (0.2-1) Aspartate Amino Transf (AST/SGOT) 30 U/L (15-37) Alanine Aminotransferase (ALT/SGPT) 48 U/L (12-78) Alkaline Phosphatase 91 U/L (45-117) Total Protein 7.5 gm/dl (6.4-8.2) Albumin 3.6 gm/dl (3.4-5.0) Globulin 3.9 gm/dl (2.5-4.0) Albumin/Globulin Ratio 0.9 (0.9-2) Ethyl Alcohol mg/dL < 3.0 mg/dl (0-3) Bedside Glucose 90 mg/dl (70-99) Laboratory results reviewed by me Medications Administered Medications (Trade) Dose Ordered Sig/Rosario Route Start Time Stop Time Status Last Admin Dose Admin Emtricitabine/ Tenofovir (Truvada 200-300mg Tab) 1 tab ONE ONCE PO 06/20/17 10:00 06/20/17 10:01 DC 06/20/17 10:17 1 TAB ED Course 0940: The patient was evaluated in room A8. A complete history and physical exam was performed. Medical Decision The patient is a 57 year old white male with a past medical history of HIV who presents to the ED with a cc of suicidal ideations beginning a month ago.Differential diagnosis includes but is not limited too: depression, psychosis, intoxication. Patient's lab work was fairly unremarkable. Patient stated he had a good CD4 count as well as an undetectable viral load. Patient was medically cleared. Counseled on smoking cessation and substance abuse abstinence. Patient was accepted to inpatient psych. Medication Reconcilliation Current Medication List: was personally reviewed by me Blood Pressure Screening Patient's blood pressure: Elevated blood pressure Blood pressure disposition: Referred to PCP Impression Primary Impression: Suicidal ideation Additional Impressions: Substance abuse Encounter for smoking cessation counseling Scribe Attestation The scribe's documentation has been prepared under my direction and personally reviewed by me in its entirety. I confirm that the note above accurately reflects all work, treatment, procedures, and medical decision making performed by me. Departure Information Dispostion Being Evaluated By Hospitalist Referrals Pola Castillo M.D. (PCP) Patient Instructions My [facility] Problem Qualifiers
[2017-06-20] MEDS ORDERED: EMTRICITABINE/TENOFOVIR TAB PO ONE (10:00)
[2017-06-20 10:10] LABS: BASO % 0.4 %; BASO ABS # 0.05 K/uL (0-0.2); COMPLETE YES; EOS % 2.1 %; IG% 0.3 %; LYMPH % 20.1 %; LYMPH ABS # 2.84 K/uL (1.2-3.4); MEAN CELL VOLUME 89.7 fL (80-100); MEAN CORPUSCULAR HEMOGLOBIN 32.4 pg (25-34); MEAN CORPUSCULAR HGB CONC 36.2 g/dl (32-36); MEAN PLATELET VOLUME 9.7 fL (7.4-10.4); MONO % 10.2 %; NEUT % 66.9 %; PLATELET COUNT 298 K/uL (130-400); RED BLOOD COUNT 5.24 M/uL (4.7-6.1); WHITE BLOOD COUNT 14.13 K/uL (4.8-10.8)
[2017-06-20 10:20] LABS: URINE APPEARANCE CLEAR (CLEAR); URINE BILIRUBIN NEG (NEG); URINE COLOR YELLOW; URINE EPITHELIAL CELL AUTO 0-5 /lpf (0-5); URINE NITRITE NEG (NEG); URINE SPECIFIC GRAVITY 1.018 (1.000-1.030); UROBILINOGEN NEG (NEG)
[2017-06-20 10:24] LABS: MANUAL MICROSCOPIC REQUIRED? NO; REVIEW REQ? NO
[2017-06-20 10:35] LABS: BUN/CREATININE RATIO 11.6 (10-20); CALCIUM 8.8 mg/dl (8.5-10.1); CREATININE 1.1 mg/dl (0.60-1.40); POTASSIUM 3.7 mmol/L (3.5-5.1)
[2017-06-20 10:38] LABS: ALB/GLOB RATIO 0.9 (0.9-2)
[2017-06-20 10:39] LABS: BENZODIAZEPINE, URINE NEG (NEG); COCAINE,URINE NEG (NEG); PHENCYCLIDINE, URINE NEG (NEG)
[2017-06-20 13:05] VITALS: O2SAT 97
[2017-06-20 13:33] VITALS: BP 128/78; PULSE 78; TEMP 36.7; Ht 190.5 cm; Wt 102.1 kg
--- NOTE | 2017-06-20 14:00 | Psychiatric History & Physical ---
History Date of Service Jun 20, 2017. Identifying Data Dru Juárez is a 57-year-old male [place], has a history of substance abuse, HIV, and depression, who presented to the emergency room this morning with suicidality a plan to cut his wrists. He was admitted voluntarily. Chief Complaint "Mom, I just... Scary, to feel so low that you want to do that". History of Present Illness Patient presented to the emergency room early this morning stating that he had been suicidal for about a month, and last night but razor blades and drove to a remote area with a plan to cut his wrists. He then decided to come to the hospital and seek help instead. His drug screen was positive for amphetamine/ methamphetamine, and he admitted to using crystal meth. He was just hospitalized on the medical service from 05/12/2017 through 05/14/2017 after a binge on methamphetamine. He was agitated during that admission and had to be sedated with Haldol and Ativan. He was seen by Dr. salas for psychiatric consultation on 05/13/2017, as his sister had completed a 302 petition. He had apparently expressed suicidal thoughts while under the influence during a verbal altercation with his 2 sisters, stating that he was going to "end it all. " Once sober, he denied suicidal thoughts, but admitted to heavy drug use. He had used meth in the past, was clean for 18 years, and then relapsed in September 2016. He described a pattern of binge use, and stated he wanted to quit. He also reported auditory hallucinations and mild depressive symptoms. The recommendations were for inpatient substance abuse treatment, continue duloxetine, and discontinue Ritalin. He refused inpatient rehabilitation, and was given information about outpatient substance abuse treatment facilities. Today, he reports he drove around [place] this morning to find razor blades, had to go to numerous stores before he found some, and then drove to [facility] where he planned to end his life. He reported stressors of relationship problems, stating that he thought he had a dating possibility but it didn't work out, and said he felt "really shitty about myself." He has been using meth IV regularly, states his last use was about 4 days ago, and his drug screen was positive. He also has criminal charges for drug possession with a court date 06/29/2017. He has been noncompliant with his Cymbalta and has not taken it for about a month, and has also missed doses of his HIV meds. He endorses depressed and anxious mood, decreased appetite and impaired sleep when using meth, impaired focus, and poor self-esteem. He reports daily anxiety and restlessness. He denies symptoms of otto. He endorses auditory hallucinations , which she says "are really hallucinations, my sisters found people to... Because of my drug use... They just made me worse, played on my loneliness." He has significant difficulty staying on track or explaining this further, but states that his sister's control the voices he hears, and says "they know what I 'm saying, can see what I see." The voices make negative comments about him, saying "you're not attractive, weird body, not interesting, boring sexually." He repeatedly refers to "people I thought were friends, but turned out not to be." He states that his drug dealer was somebody he thought he might have a romantic relationship with, but then found out "he doesn't like me, actually hates me." He minimizes his drug use, stating he doesn't think he needs treatment because he was able to stay clean for 18 years, and because his drug dealer doesn't like him so he won't be able to buy drugs from him anymore. He says his primary problem is that "I don't like my body, others don't like my body, don't like my looks." He gives inconsistent reports about his methamphetamine abuse, initially stating that he is only using 1-2 times a week , but then stating that he'll buy 2 g a week and use it until it's gone. He says that he didn't use for 3 weeks after his discharge from this hospital 05/14, and states he was arrested 2 weeks after that for meth possession. He further states that he hasn't worked in a year and a half due to his drug use, and relies on his family to support him financially. He states that he did not attend any substance abuse treatment as recommended at his last hospital stay. 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 Jose E Patton Allergies Allergies: Coded Allergies: Penicillins (Unverified Allergy, Severe, ANAPHYLAXIS, 11/16/16) Home Medications Scheduled Dolutegravir Sodium (Tivicay), 1 TAB PO DAILY Duloxetine Hcl (Cymbalta), 60 MG PO DAILY Emtricitabine/Temofovir (Truvada 200/300MG), 1 TAB PO DAILY Gabapentin (Neurontin), 2,400 MG PO HS Lisinopril/Hctz (Zestoretic 20MG/25MG), 1 TAB PO DAILY Family History History of Suicide: No History of Substance Abuse: Yes (brother - cannabis) Psychiatric History: Yes (father with bipolar disorder (reported depression when seen on consult service last month)) Alcohol Use Alcohol Use In Past 12 Months: No the patient reports a history of binge drinking, but denies alcohol use in about 1.5 years. Smoking Use Smoking Status: Current Every Day Smoker Substance History methamphetamine use - was clean for 18 years until relapsed in August 2016. Since that time, has been using 1-2 g a week, IV, and says when he buys it, he uses it until it's gone. He also reports a history of cocaine use years ago. He has current criminal charges for meth possession. 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 He relies on his family to support him. Relationship History: never Spiritual Affiliation: Denies Legal History: reported (Has charges for possession with a court date 06/29) Psychological Trauma History: Denies Hx Traumatic Event Review of Systems 10 systems reviewed; negative except as stated above. Examination Physical Examination A physical exam was performed in the ER prior to admission to the unit by Dr. Mcfarlane. I accept that physical as correct/medical clearance for the inpatient physical exam. Vital Signs Vital Signs Past 12 Hours Date Time Temp Pulse Resp B/P (MAP) Pulse Ox O2 Delivery O2 Flow Rate FiO2 06/20/17 11:02 72 18 144/66 97 Room Air 06/20/17 09:16 36.8 74 20 156/96 95 Room Air Laboratory Results Last 24 Hours Test 06/20/17 09:25 06/20/17 09:54 06/20/17 10:02 Urine Color YELLOW Urine Appearance CLEAR Urine pH 6.0 Urine Specific [place] 1.018 Urine Protein NEG Urine Glucose (UA) TRACE Urine Ketones NEG Urine Occult Blood NEG Urine Nitrite NEG Urine Bilirubin NEG Urine Urobilinogen NEG Urine Leukocyte Esterase SMALL Urine WBC (Auto) 5-10 /hpf Urine RBC (Auto) 0-4 /hpf Urine Hyaline Casts (Auto) 0 /lpf Urine Epithelial Cells (Auto) 0-5 /lpf Urine Bacteria (Auto) NEG Urine Opiates Screen NEG Urine Methadone, Qualitative NEG Urine Barbiturates NEG Urine Phencyclidine (PCP) Level NEG Ur Amphetamine/Methamphetamine POS MDMA (Ecstasy) Screen NEG Urine Benzodiazepines Screen NEG Urine Cocaine Metabolite NEG Urine Marijuana (THC) NEG White Blood Count 14.13 K/uL Red Blood Count 5.24 M/uL Hemoglobin 17.0 g/dL Hematocrit 47.0 % Mean Corpuscular Volume 89.7 fL Mean Corpuscular Hemoglobin 32.4 pg Mean Corpuscular Hemoglobin Concent 36.2 g/dl Platelet Count 298 K/uL Mean Platelet Volume 9.7 fL Neutrophils (%) (Auto) 66.9 % Lymphocytes (%) (Auto) 20.1 % Monocytes (%) (Auto) 10.2 % Eosinophils (%) (Auto) 2.1 % Basophils (%) (Auto) 0.4 % Neutrophils # (Auto) 9.47 K/uL Lymphocytes # (Auto) 2.84 K/uL Monocytes # (Auto) 1.44 K/uL Eosinophils # (Auto) 0.29 K/uL Basophils # (Auto) 0.05 K/uL RDW Standard Deviation 41.3 fL RDW Coefficient of Variation 12.7 % Immature Granulocyte % (Auto) 0.3 % Immature Granulocyte # (Auto) 0.04 K/uL Sodium Level 138 mmol/L Potassium Level 3.7 mmol/L Chloride Level 104 mmol/L Carbon Dioxide Level 25 mmol/L Anion Gap 9.0 mmol/L Blood Urea Nitrogen 13 mg/dl Creatinine 1.10 mg/dl Est Creatinine Clear Calc Drug Dose 98.9 ml/min Estimated GFR () 87.1 Estimated GFR (Non- 75.2 BUN/Creatinine Ratio 11.6 Random Glucose 92 mg/dl Calcium Level 8.8 mg/dl Total Bilirubin 0.7 mg/dl Aspartate Amino Transf (AST/SGOT) 30 U/L Alanine Aminotransferase (ALT/SGPT) 48 U/L Alkaline Phosphatase 91 U/L Total Protein 7.5 gm/dl Albumin 3.6 gm/dl Globulin 3.9 gm/dl Albumin/Globulin Ratio 0.9 Ethyl Alcohol mg/dL < 3.0 mg/dl Bedside Glucose 90 mg/dl Mental Examination During interview pt is: cooperative Appearance: disheveled, other (wearing a hospital gown and glasses that are missing one arm. Poor dentition, missing teeth. Poor hygiene and grooming. Wearing a hospital gown, and tattoo visible on upper back.) Eye contact is: fair Motor behavior is: psychomotor agitation (fidgeting) Speech: other (halting speech, unable to finish sentences) Affect: depressed, anxious, constricted Mood is: depressed, anxious Thought process: tangential, other (disorganized, unable to finish thoughts at times, requires frequent redirection) Thought content: worthlessness, guilt Suicidal thought are: present, Plan: present, Intent: present (thought razor blades this morning with intent to slit his wrists) Homicidal thoughts are: denied Hallucinations: auditory (hears voices saying negative things about him), denies visual Cognition: other (impaired) Intelligence estimated to be: average Insight: impaired Judgement: impaired Impression / Recommendations Impression 57-year-old male who lives in [place] [place] with his mother, has a history of depression, ADHD, methamphetamine abuse, and HIV, who presents with suicidality having bought razors with intent to slit his wrists in the context of treatment noncompliance and ongoing methamphetamine abuse. He appears to be either under the influence or just coming off of methamphetamine binge, as he is jumpy, cognitively impaired, and very depressed. He is also reporting auditory hallucinations. He is very poor insight into his substance abuse, and is unwilling to accept treatment recommendations, stating that his dealer doesn't like him so he just won't buy from him anymore. He is at high risk for suicide if discharged prematurely, so requires inpatient treatment. Inventory Assets Strengths: has housing, supportive mother Risk Factors Assessment Male: Yes : Yes /single/: Yes Higher / Fall in social status: No Health problems: Yes Mental Health Diagnoses: Yes Substance use disorders: Yes Previous attempt: No Family history of suicide: No Previous psychiatric stay: Yes Hopelessness: Yes Smoker: Yes Protective Factors Assessment Pentecostalism beliefs: No : No Responsible for young children: No Employed: No Stable relationships: No Supportive family: Yes Good rapport with provider: No Recommendations (1) Suicidal ideation Q 15 min checks for safety. Work on safety plan. Family meeting with mother. (2) Depression Noncompliant with duloxetine, and abusing meth, contributing to depression. Educate about diagnosis and recommended treatment. Patient has been noncompliant with antidepressants, and has been off duloxetine for a month. We'll restarted at 30 mg daily, and titrate as tolerated to an effective dose. Continue to monitor auditory hallucinations; unclear if these are due to his substance abuse or lack of sleep related to meth use. Consider the need for an antipsychotic if they do not resolve with supportive treatment and distance from substance use. Referred to an outpatient psychiatrist. (3) Methamphetamine abuse Recommend inpatient rehab, as patient has failed attempt to curtail his use as an outpatient. He is refusing and demonstrates very poor insight., He has drug charges with a court date 06/29/17. Avoid prescription of controlled substances due to risk of abuse. (4) HIV (human immunodeficiency virus infection) Continue Truvada and Trivicay, and consult ID per hospital requirement. CPT Code Initial Hospital Care: 50353 Problem Qualifiers (1) Depression: Depression Type: major depressive disorder Major depression episode severity: unspecified
[2017-06-20] MEDS ORDERED: HALOPERIDOL 5 MG TAB PO PRN (14:15)
--- NOTE | 2017-06-20 14:52 | Medical Consult ---
Consultation Date of Consultation: Jun 20, 2017. Attending Physician: Tori Shah MD Reason for Consultation: HIV + on meds History of Present Illness 57-year-old male was under my care for HIV infection, who has been well controlled on a combination of Truvada and Tivicay with undetectable viral load and excellent CD4 count. He was admitted to the mental health service after expressing wish to commit suicide by/in his wrists with razor blades. He reportedly has been heavily abusing methamphetamines recently. Therefore his compliance with his HIV medications is on clear. He has no obvious new HIV related complaints. Past Medical/Surgical History Medical Problems: (1) Depression Status: Acute (2) Encounter for smoking cessation counseling Status: Acute (3) Foot pain Status: Acute (4) Hallucinogen overdose Status: Acute (5) Neuropathic pain Status: Acute (6) Substance abuse Status: Acute (7) Suicidal ideation Status: Acute Medical Problems: (1) Depression (2) History of benign orbital tumor (3) HIV (human immunodeficiency virus infection) (4) Methamphetamine abuse (5) Neuropathy (6) overdose, self harm (7) Suicidal ideation Family History Noncontributory Social History Smoking Status: Current Every Day Smoker Drug Use: other (Crystal meth) Marital Status: single Housing Status: lives with family Occupation Status: unemployed Allergies Coded Allergies: Penicillins (Unverified Allergy, Severe, ANAPHYLAXIS, 11/16/16) Current Inpatient Medications Current Inpatient Medications Medications (Trade) Dose Ordered Sig/Rosario Route Start Time Stop Time Status Last Admin Dose Admin Emtricitabine/ Tenofovir (Truvada 200-300mg Tab) 1 tab DAILY PO 06/21/17 09:00 07/21/17 08:59 Gabapentin (Neurontin Tab) 2,400 mg HS PO 06/20/17 21:00 07/20/17 20:59 HCTZ/Lisinopril (Prinzide 20-25MG Tab) 1 tab DAILY PO 06/21/17 09:00 07/21/17 08:59 Miscellaneous Information (Order Awaiting Action) 1 ea QS N/A 06/20/17 16:00 07/20/17 15:59 Duloxetine HCl (Cymbalta Cap) 30 mg QAM PO 06/21/17 09:00 07/21/17 08:59 Haloperidol (Haldol Tab) 5 mg Q4H PRN PO 06/20/17 14:15 07/20/17 14:14 Review of Systems All systems were reviewed and are negative except as per HPI Physical Exam Date Time Temp Pulse Resp B/P (MAP) Pulse Ox O2 Delivery O2 Flow Rate FiO2 06/20/17 13:26 76 20 102/88 97 06/20/17 13:05 76 20 102/88 97 Room Air 06/20/17 11:02 72 18 144/66 97 Room Air 06/20/17 09:16 36.8 74 20 156/96 95 Room Air General Appearance: WD/WN, no apparent distress Head: normocephalic, atraumatic Eyes: normal inspection, EOMI, sclerae normal ENT: normal ENT inspection, pharynx normal Neck: supple, no adenopathy, thyroid normal, trachea midline Respiratory/Chest: chest non-tender, lungs clear, normal breath sounds, no respiratory distress Cardiovascular: regular rate, rhythm, no gallop, no murmur Abdomen/GI: normal bowel sounds, non tender, soft, no organomegaly Back: normal inspection, no CVA tenderness Extremities/Musculoskelatal: normal inspection, no calf tenderness, non-tender Neurologic/Psych: alert, oriented x 3, + depressed affect Skin: normal color, warm/dry, no rash Lymphatic: no adenopathy Laboratory Results Last 24 Hours Test 06/20/17 09:25 06/20/17 09:54 06/20/17 10:02 Urine Color YELLOW Urine Appearance CLEAR Urine pH 6.0 Urine Specific [place] 1.018 Urine Protein NEG Urine Glucose (UA) TRACE Urine Ketones NEG Urine Occult Blood NEG Urine Nitrite NEG Urine Bilirubin NEG Urine Urobilinogen NEG Urine Leukocyte Esterase SMALL Urine WBC (Auto) 5-10 /hpf Urine RBC (Auto) 0-4 /hpf Urine Hyaline Casts (Auto) 0 /lpf Urine Epithelial Cells (Auto) 0-5 /lpf Urine Bacteria (Auto) NEG Urine Opiates Screen NEG Urine Methadone, Qualitative NEG Urine Barbiturates NEG Urine Phencyclidine (PCP) Level NEG Ur Amphetamine/Methamphetamine POS MDMA (Ecstasy) Screen NEG Urine Benzodiazepines Screen NEG Urine Cocaine Metabolite NEG Urine Marijuana (THC) NEG White Blood Count 14.13 K/uL Red Blood Count 5.24 M/uL Hemoglobin 17.0 g/dL Hematocrit 47.0 % Mean Corpuscular Volume 89.7 fL Mean Corpuscular Hemoglobin 32.4 pg Mean Corpuscular Hemoglobin Concent 36.2 g/dl Platelet Count 298 K/uL Mean Platelet Volume 9.7 fL Neutrophils (%) (Auto) 66.9 % Lymphocytes (%) (Auto) 20.1 % Monocytes (%) (Auto) 10.2 % Eosinophils (%) (Auto) 2.1 % Basophils (%) (Auto) 0.4 % Neutrophils # (Auto) 9.47 K/uL Lymphocytes # (Auto) 2.84 K/uL Monocytes # (Auto) 1.44 K/uL Eosinophils # (Auto) 0.29 K/uL Basophils # (Auto) 0.05 K/uL RDW Standard Deviation 41.3 fL RDW Coefficient of Variation 12.7 % Immature Granulocyte % (Auto) 0.3 % Immature Granulocyte # (Auto) 0.04 K/uL Sodium Level 138 mmol/L Potassium Level 3.7 mmol/L Chloride Level 104 mmol/L Carbon Dioxide Level 25 mmol/L Anion Gap 9.0 mmol/L Blood Urea Nitrogen 13 mg/dl Creatinine 1.10 mg/dl Est Creatinine Clear Calc Drug Dose 98.9 ml/min Estimated GFR () 87.1 Estimated GFR (Non- 75.2 BUN/Creatinine Ratio 11.6 Random Glucose 92 mg/dl Calcium Level 8.8 mg/dl Total Bilirubin 0.7 mg/dl Aspartate Amino Transf (AST/SGOT) 30 U/L Alanine Aminotransferase (ALT/SGPT) 48 U/L Alkaline Phosphatase 91 U/L Total Protein 7.5 gm/dl Albumin 3.6 gm/dl Globulin 3.9 gm/dl Albumin/Globulin Ratio 0.9 Ethyl Alcohol mg/dL < 3.0 mg/dl Bedside Glucose 90 mg/dl Assessment & Plan 57 yo HIV + male with previously well controlled HIV infection now with suicidal ideation and methamphetamine abuse. Will continue on Truvada and Tivicay, and will recheck viral load and CD4 count given high potential for non- compliance.
[2017-06-20 15:12] VITALS: BP 128/78; PULSE 78; TEMP 36.7
[2017-06-20] MEDS ORDERED: PNEUMOCOCCAL POLYSACCHARIDES 25 MCG/0.5 ML VIAL/SYR IM. ONE (15:30)
[2017-06-20] MEDS ORDERED: PNEUMOCOCCAL ADMINISTRATION CHARGE ONE (15:30)
[2017-06-20] MEDS: [UNRECOGNIZED DRUG - REMARK] SCH (15:36)
[2017-06-20] MEDS: GABAPENTIN 800 MG TAB PO SCH (21:05)
[2017-06-21] MEDS: [UNRECOGNIZED DRUG - REMARK] SCH
[2017-06-21 07:12] VITALS: BP_SYST 125; BP_SYST 135; BP_DIAS 85; BP_DIAS 97; PULSE 79; TEMP 36.4
[2017-06-21] MEDS ORDERED: BISMUTH SUBSALICYLATE PER ML OMNICELL CHARGE PO PRN (08:30)
[2017-06-21] MEDS ORDERED: MAGNESIUM HYDROXIDE SUSP 30 ML UDC PO PRN (08:30)
[2017-06-21] MEDS ORDERED: ACETAMINOPHEN 325 MG TAB PO PRN (08:30)
[2017-06-21] MEDS ORDERED: hydrOXYzine HCL 25 MG TAB PO PRN (08:30)
[2017-06-21] MEDS ORDERED: SODIUM CHLORIDE 0.65% NA SOLN 45 ML (OCEAN) PRN (08:30)
[2017-06-21] MEDS: NICOTINE 21 MG/24 HR TDSY TD SCH (08:56)
[2017-06-21] MEDS ORDERED: DULOXETINE HCL 60 MG CAP PO SCH (09:00)
[2017-06-21] MEDS ORDERED: DULOXETINE (CYMBALTA) 30 MG CAP PO SCH (09:00)
[2017-06-21] MEDS ORDERED: EMTRICITABINE/TENOFOVIR TAB PO SCH (09:00)
[2017-06-21] MEDS ORDERED: LISINOPRIL/HCTZ 20/25MG TAB PO SCH (09:00)
--- NOTE | 2017-06-21 12:30 | Psychiatric Progress Notes ---
Progress Note Date of Service Jun 21, 2017. Interval History 57-year-old male who lives in [place] with his mother, has a history of depression, ADHD, methamphetamine abuse, and HIV, who presents with suicidality having bought razors with intent to slit his wrists in the context of treatment noncompliance and ongoing methamphetamine abuse. He appears to be either under the influence or just coming off of methamphetamine binge, as he is jumpy, cognitively impaired, and very depressed. He is also reporting auditory hallucinations. He is very poor insight into his substance abuse, and is unwilling to accept treatment recommendations, stating that his dealer doesn't like him so he just won't buy from him anymore. He is at high risk for suicide if discharged prematurely, so requires inpatient treatment. Chief Complaint "I'm OK.". Subjective Patient was seen & assessed interval progress reviewed with Treatment Team. The patient says that his thinking is only a little clearer today and he remains depressed. HE denies acute SI, but says that he wants "to be another me ". He talked about his meth use, and that it started out as something he used for sex, but then started doing it when he was alone. He can acknowledge that rehab was recommended for him when he was in the hospital recently. He even had an OP appt, but didn't go. During our discussion, he is beginning to think that rehab "might not be a bad idea" given that he was not able to stop previously. He worried that 'going to rehab' is a label that his family would not accept, despite the fact that they know he uses. We talked about his mother who is 91, and how he will care for himself when she passes away. He becomes very tearful, saying that he doesn't know what he'll do, "I've always been a momma's boy". The house he lives in with her will be split between all 5 of the children. He last worked in December of 2015, in a [employer] business, but has not found a job locally since returning. He describes his mood as "low", and again notes that he has had aud hallucinations before, even when he wasn't under the influence of drugs. Review of Systems Constitutional: No fever, No chills, No sweats, No weight loss, No weakness, No fatigue, No problem reported ENT: No hearing loss, No unusual epistaxis, No nasal symptoms, No sore throat, No tinnitus, No dental problems, No trouble swallowing, No problem reported Respiratory: No cough, No sputum, No wheezing, No shortness of breath, No dyspnea on exertion, No dyspnea at rest, No hemoptysis, No problem reported Cardiovascular: No chest pain, No orthopnea, No PND, No edema, No claudication , No palpitations, No problem reported Abdomen: No pain, No nausea, No vomiting, No diarrhea, No constipation, No GI bleeding, No problem reported Musculoskeletal: No joint pain, No muscle pain, No swelling, No calf pain, No problem reported Neurologic: No memory loss, No paralysis, No weakness, No numbness/tingling, No vertigo, No balance problems, No problem reported Psychiatric: + depression symptoms Integumentary: + problem reported (tatoos) Sleep Information Total Hours of Sleep: 7.00 Meal Information Percent of Breakfast Consumed: 100 Percent of Dinner Consumed: 100 Mental Status Exam During interview pt is: cooperative Appearance: disheveled, other (Poor dentition and grooming, wearing a t-shirt with food stains, broken glasses) Eye contact is: good Motor behavior is: psychomotor agitation (fidgeting) Speech: other (disjointed) Affect: depressed, tearful, anxious Mood is: depressed, anxious Thought process: tangential Thought content: reality based without delusions, worthlessness, guilt Suicidal thought are: present, Plan: present, Intent: present (thought razor blades this morning with intent to slit his wrists) Homicidal thoughts are: denied Hallucinations: auditory (hears voices saying negative things about him), denies visual Cognition: other (impaired) Intelligence estimated to be: average Insight: impaired Judgement: impaired Impression Adjusting to the unit as the meth leaves his system. He is only slightly more organized than yesterday, but able to have a conversation. He remains depressed , and SI is more a wish for his life to be different, better. Family has brought in his second HIV med and we will have it relabeled. Will increase his Cymbalta to 60 mg daily starting tomorrow. We continue to recommend rehab, and he seems more willing to consider today, and so will continue the discussion. Will need a family meeting. Plan (1) Suicidal ideation Q 15 min checks for safety. Work on safety plan. Family meeting with mother. 06/21 - Increase Cymbalta to 60 mg. daily (2) Depression Noncompliant with duloxetine, and abusing meth, contributing to depression. Educate about diagnosis and recommended treatment. Patient has been noncompliant with antidepressants, and has been off duloxetine for a month. We'll restarted at 30 mg daily, and titrate as tolerated to an effective dose. Continue to monitor auditory hallucinations; unclear if these are due to his substance abuse or lack of sleep related to meth use. Consider the need for an antipsychotic if they do not resolve with supportive treatment and distance from substance use. Referred to an outpatient psychiatrist. (3) Methamphetamine abuse Recommend inpatient rehab, as patient has failed attempt to curtail his use as an outpatient. He is refusing and demonstrates very poor insight., He has drug charges with a court date 06/29/17. Avoid prescription of controlled substances due to risk of abuse. 06/21 - Continue to recommend inpatient rehab (4) HIV (human immunodeficiency virus infection) Continue Truvada and Trivicay, and consult ID per hospital requirement. 06/21 - Trivicay brought in by family. Will have sent to the pharmacy for inpatient use. Discharge / Aftercare Planning Primary Care Physician: Name: Dr Castillo Visit Code E&M Code: 44328 Inventory Assets Strengths: has housing, supportive mother Risk Factors Assessment Male: Yes : Yes /single/: Yes Higher / Fall in social status: No Health problems: Yes Mental Health Diagnoses: Yes Substance use disorders: Yes Previous attempt: No Family history of suicide: No Previous psychiatric stay: Yes Hopelessness: Yes Smoker: Yes Protective Factors Assessment Anabaptist beliefs: No : No Responsible for young children: No Employed: No Stable relationships: No Supportive family: Yes Good rapport with provider: No Data Vital Signs Last 24 Hrs: Date Time Temp Pulse Resp B/P (MAP) Pulse Ox O2 Delivery O2 Flow Rate FiO2 06/21/17 07:12 36.4 79 18 135/97 125/85 06/20/17 15:12 36.7 78 16 128/78 06/20/17 13:33 36.7 78 16 128/78 06/20/17 13:26 76 20 102/88 97 06/20/17 13:05 76 20 102/88 97 Room Air Meds Administered Last 24 Hrs: Meds Administered (Past 24Hrs) Medications (Trade) Dose Ordered Sig/Rosario Route Start Time Stop Time Status Last Admin Dose Admin Emtricitabine/ Tenofovir (Truvada 200-300mg Tab) 1 tab ONE ONCE PO 06/20/17 10:00 06/20/17 10:01 DC 06/20/17 10:17 1 TAB Emtricitabine/ Tenofovir (Truvada 200-300mg Tab) 1 tab DAILY PO 06/21/17 09:00 07/21/17 08:59 06/21/17 08:54 1 TAB Gabapentin (Neurontin Tab) 2,400 mg HS PO 06/20/17 21:00 07/20/17 20:59 06/20/17 21:05 2,400 MG HCTZ/Lisinopril (Prinzide 20-25MG Tab) 1 tab DAILY PO 06/21/17 09:00 07/21/17 08:59 06/21/17 08:53 1 TAB Duloxetine HCl (Cymbalta Cap) 30 mg QAM PO 06/21/17 09:00 07/21/17 08:59 06/21/17 08:53 30 MG Nicotine (Nicoderm Cq 21MG Patch) 1 patch QAM TD 06/21/17 09:00 07/21/17 08:59 06/21/17 08:56 1 PATCH Lab Results Last 24 Hrs: Last 24 Hours Test 06/20/17 15:44 Problem Qualifiers (1) Depression: Depression Type: major depressive disorder Major depression episode severity: unspecified
[2017-06-21] MEDS ORDERED: TIVICAY PO SCH (22:00)
[2017-06-21] MEDS: DOLUTEGRAVIR SODIUM 50 MG TAB PO SCH (22:07)
[2017-06-21] MEDS: GABAPENTIN 800 MG TAB PO SCH (22:07)
[2017-06-22 06:20] VITALS: BP 125/77; PULSE 73; TEMP 36.4
[2017-06-22] MEDS ORDERED: PNEUMOCOCCAL POLYSACCHARIDES 25 MCG/0.5 ML VIAL/SYR IM. ONE (08:00)
[2017-06-22] MEDS ORDERED: PNEUMOCOCCAL ADMINISTRATION CHARGE ONE (08:00)
[2017-06-22] MEDS ORDERED: DOLUTEGRAVIR SODIUM 50 MG TAB PO SCH (09:00)
[2017-06-22] MEDS ORDERED: DULOXETINE HCL 60 MG CAP PO SCH (09:00)
[2017-06-22] MEDS: NICOTINE 21 MG/24 HR TDSY TD SCH (09:14)
--- NOTE | 2017-06-22 10:35 | Psychiatric Progress Notes ---
Progress Note Date of Service Jun 22, 2017. Interval History 57-year-old male who lives in [place] with his mother, has a history of depression, ADHD, methamphetamine abuse, and HIV, who presents with suicidality having bought razors with intent to slit his wrists in the context of treatment noncompliance and ongoing methamphetamine abuse. He appears to be either under the influence or just coming off of methamphetamine binge, as he is jumpy, cognitively impaired, and very depressed. He is also reporting auditory hallucinations. He is very poor insight into his substance abuse, and is unwilling to accept treatment recommendations, stating that his dealer doesn't like him so he just won't buy from him anymore. He is at high risk for suicide if discharged prematurely, so requires inpatient treatment. Chief Complaint "I was down all night. ". Subjective Patient was seen & assessed interval progress reviewed with Treatment Team. The patient says that his mood was low all evening, and can't say specifically why. He has now decided to go to rehab and referrals have been sent. He will have a meeting with his sisters this afternoon. He denies acute SI again today saying that he just can't find any reasons to be happy with his current life, but if he could change his life then he is hopeful. He says that he continues to hear voices, specifically coming from the right side of his head, that carry on a conversation, sometimes saying amusing things that make him laugh out loud. He has been hearing voices for about the last 3 years, and denies that he heard them when he was more sober. He denies having any visual experiences. His sleep was poor, up and down all night, but did not know that he could take a sleep aid. His appetite is good and nursing reports that he went to some groups on days, but none on evenings yesterday. Review of Systems Constitutional: + fatigue ENT: No hearing loss, No unusual epistaxis, No nasal symptoms, No sore throat, No tinnitus, No dental problems, No trouble swallowing, No problem reported Respiratory: No cough, No sputum, No wheezing, No shortness of breath, No dyspnea on exertion, No dyspnea at rest, No hemoptysis, No problem reported Cardiovascular: No chest pain, No orthopnea, No PND, No edema, No claudication , No palpitations, No problem reported Abdomen: No pain, No nausea, No vomiting, No diarrhea, No constipation, No GI bleeding, No problem reported Musculoskeletal: No joint pain, No muscle pain, No swelling, No calf pain, No problem reported Neurologic: No memory loss, No paralysis, No weakness, No numbness/tingling, No vertigo, No balance problems, No problem reported Psychiatric: + depression symptoms Integumentary: No rash, No itch, No new/changing skin lesions, No color change , No bleeding, No problem reported Sleep Information Total Hours of Sleep: 7.00 Meal Information Percent of Breakfast Consumed: 100 Percent of Lunch Consumed: 100 Percent of Dinner Consumed: 100 Mental Status Exam During interview pt is: alert and oriented, cooperative Appearance: disheveled, other (Poor dentition and grooming, wearing a t-shirt with food stains, broken glasses) Eye contact is: good Motor behavior is: steady gait & station, no abnormal motor movements Speech: normal in rate, rhythm & volume Affect: depressed Mood is: depressed, anxious Thought process: goal directed Thought content: reality based without delusions, worthlessness, guilt Suicidal thought are: denied Homicidal thoughts are: denied Hallucinations: auditory (multiple voices having a conversation), denies visual Cognition: language grossly intact Intelligence estimated to be: average Insight: fair Judgement: impaired Impression Each day he seems clearer in his thinking, and has now agreed to go to rehab. Referrals have been sent. His sister will come today for a meeting, and bring some personal items. I believe that he is stable to attend rehab at this time. Continue current meds. Plan (1) Suicidal ideation Q 15 min checks for safety. Work on safety plan. Family meeting with mother. 06/21 - Increase Cymbalta to 60 mg. daily (2) Depression Noncompliant with duloxetine, and abusing meth, contributing to depression. Educate about diagnosis and recommended treatment. Patient has been noncompliant with antidepressants, and has been off duloxetine for a month. We'll restarted at 30 mg daily, and titrate as tolerated to an effective dose. Continue to monitor auditory hallucinations; unclear if these are due to his substance abuse or lack of sleep related to meth use. Consider the need for an antipsychotic if they do not resolve with supportive treatment and distance from substance use. Referred to an outpatient psychiatrist. 06/22 - Continue Cymbalta 60 mg. Patient prefers to take at HS (3) Methamphetamine abuse Recommend inpatient rehab, as patient has failed attempt to curtail his use as an outpatient. He is refusing and demonstrates very poor insight., He has drug charges with a court date 06/29/17. Avoid prescription of controlled substances due to risk of abuse. 06/21 - Continue to recommend inpatient rehab 06/22 - Patient agreeable to rehab. Await word from the referrals. (4) HIV (human immunodeficiency virus infection) Continue Truvada and Trivicay, and consult ID per hospital requirement. 06/21 - Trivicay brought in by family. Will have sent to the pharmacy for inpatient use. Discharge / Aftercare Planning Primary Care Physician: Name: Dr Castillo Visit Code E&M Code: 64038 Inventory Assets Strengths: has housing, supportive mother Risk Factors Assessment Male: Yes : Yes /single/: Yes Higher / Fall in social status: No Health problems: Yes Mental Health Diagnoses: Yes Substance use disorders: Yes Previous attempt: No Family history of suicide: No Previous psychiatric stay: Yes Hopelessness: Yes Smoker: Yes Protective Factors Assessment Faith beliefs: No : No Responsible for young children: No Employed: No Stable relationships: No Supportive family: Yes Good rapport with provider: No Data Vital Signs Last 24 Hrs: Date Time Temp Pulse Resp B/P (MAP) Pulse Ox O2 Delivery O2 Flow Rate FiO2 06/22/17 06:20 36.4 73 17 125/77 Meds Administered Last 24 Hrs: Meds Administered (Past 24Hrs) Medications (Trade) Dose Ordered Sig/Rosario Route Start Time Stop Time Status Last Admin Dose Admin Emtricitabine/ Tenofovir (Truvada 200-300mg Tab) 1 tab DAILY PO 06/21/17 09:00 06/22/17 09:23 DC 06/21/17 08:54 1 TAB Gabapentin (Neurontin Tab) 2,400 mg HS PO 06/20/17 21:00 07/20/17 20:59 06/21/17 22:07 2,400 MG HCTZ/Lisinopril (Prinzide 20-25MG Tab) 1 tab DAILY PO 06/21/17 09:00 06/22/17 09:23 DC 06/21/17 08:53 1 TAB Duloxetine HCl (Cymbalta Cap) 30 mg QAM PO 06/21/17 09:00 06/21/17 12:31 DC 06/21/17 08:53 30 MG Nicotine (Nicoderm Cq 21MG Patch) 1 patch QAM TD 06/21/17 09:00 07/21/17 08:59 06/22/17 09:14 1 PATCH Miscellaneous (Remove Nicoderm Patch) 1 ea HS N/A 06/21/17 22:00 07/21/17 21:59 06/21/17 22:07 1 EA Lab Results Last 24 Hrs: 06/20/17 09:54 Red Blood Count 5.24, Mean Corpuscular Volume 89.7, Mean Corpuscular Hemoglobin 32.4, Mean Corpuscular Hemoglobin Concent 36.2, Mean Platelet Volume 9.7, Neutrophils (%) (Auto) 66.9, Lymphocytes (%) (Auto) 20.1, Monocytes (%) (Auto) 10.2, Eosinophils (%) (Auto) 2.1, Basophils (%) (Auto) 0.4, Neutrophils # (Auto ) 9.47, Lymphocytes # (Auto) 2.84, Monocytes # (Auto) 1.44, Eosinophils # (Auto ) 0.29, Basophils # (Auto) 0.05 06/20/17 09:54 Test 06/20/17 09:25 06/20/17 09:54 06/20/17 10:02 06/20/17 15:44 Urine Color YELLOW Urine Appearance CLEAR (CLEAR) Urine pH 6.0 (4.5-7.5) Urine Specific [place] 1.018 (1.000-1.030) Urine Protein NEG (NEG) Urine Glucose (UA) TRACE (NEG) Urine Ketones NEG (NEG) Urine Occult Blood NEG (NEG) Urine Nitrite NEG (NEG) Urine Bilirubin NEG (NEG) Urine Urobilinogen NEG (NEG) Urine Leukocyte Esterase SMALL (NEG) Urine WBC (Auto) 5-10 /hpf (0-5) Urine RBC (Auto) 0-4 /hpf (0-4) Urine Hyaline Casts (Auto) 0 /lpf (0-5) Urine Epithelial Cells (Auto) 0-5 /lpf (0-5) Urine Bacteria (Auto) NEG (NEG) Urine Opiates Screen NEG (NEG) Urine Methadone, Qualitative NEG (NEG) Urine Barbiturates NEG (NEG) Urine Phencyclidine (PCP) Level NEG (NEG) Urine Amphetamines Confirmation [id number] NG/ML ([id number]) Ur Amphetamine/Methamphetamine POS (NEG) Urine Methamphetamine Confirmation [id number] NG/ML ([id number]) MDMA (Ecstasy) Screen NEG (NEG) Urine Benzodiazepines Screen NEG (NEG) Urine Cocaine Metabolite NEG (NEG) Urine Marijuana (THC) NEG (NEG) White Blood Count 14.13 K/uL (4.8-10.8) Red Blood Count 5.24 M/uL (4.7-6.1) Hemoglobin 17.0 g/dL (14.0-18.0) Hematocrit 47.0 % (42-52) Mean Corpuscular Volume 89.7 fL (80-100) Mean Corpuscular Hemoglobin 32.4 pg (25-34) Mean Corpuscular Hemoglobin Concent 36.2 g/dl (32-36) Platelet Count 298 K/uL (130-400) Mean Platelet Volume 9.7 fL (7.4-10.4) Neutrophils (%) (Auto) 66.9 % Lymphocytes (%) (Auto) 20.1 % Monocytes (%) (Auto) 10.2 % Eosinophils (%) (Auto) 2.1 % Basophils (%) (Auto) 0.4 % Neutrophils # (Auto) 9.47 K/uL (1.4-6.5) Lymphocytes # (Auto) 2.84 K/uL (1.2-3.4) Monocytes # (Auto) 1.44 K/uL (0.11-0.59) Eosinophils # (Auto) 0.29 K/uL (0-0.5) Basophils # (Auto) 0.05 K/uL (0-0.2) RDW Standard Deviation 41.3 fL (36.4-46.3) RDW Coefficient of Variation 12.7 % (11.5-14.5) Immature Granulocyte % (Auto) 0.3 % Immature Granulocyte # (Auto) 0.04 K/uL (0.00-0.02) Anion Gap 9.0 mmol/L (3-11) Est Creatinine Clear Calc Drug Dose 98.9 ml/min Estimated GFR () 87.1 Estimated GFR (Non- 75.2 BUN/Creatinine Ratio 11.6 (10-20) Calcium Level 8.8 mg/dl (8.5-10.1) Total Bilirubin 0.7 mg/dl (0.2-1) Aspartate Amino Transf (AST/SGOT) 30 U/L (15-37) Alanine Aminotransferase (ALT/SGPT) 48 U/L (12-78) Alkaline Phosphatase 91 U/L (45-117) Total Protein 7.5 gm/dl (6.4-8.2) Albumin 3.6 gm/dl (3.4-5.0) Globulin 3.9 gm/dl (2.5-4.0) Albumin/Globulin Ratio 0.9 (0.9-2) Ethyl Alcohol mg/dL < 3.0 mg/dl (0-3) Bedside Glucose 90 mg/dl (70-99) Problem Qualifiers (1) Depression: Depression Type: major depressive disorder Major depression episode severity: unspecified
[2017-06-22] MEDS: EMTRICITABINE/TENOFOVIR TAB PO SCH (21:02)
[2017-06-22] MEDS: DULOXETINE HCL 60 MG CAP PO SCH (21:03)
[2017-06-22] MEDS: DOLUTEGRAVIR SODIUM 50 MG TAB PO SCH (21:03)
[2017-06-22] MEDS: LISINOPRIL/HCTZ 20/25MG TAB PO SCH (21:03)
[2017-06-22] MEDS: GABAPENTIN 800 MG TAB PO SCH (21:03)
[2017-06-23] MEDS: hydrOXYzine HCL 25 MG TAB PO PRN (01:27)
[2017-06-23 06:52] VITALS: BP_SYST 132; BP_SYST 134; BP_DIAS 84; BP_DIAS 93; PULSE 84; PULSE 91; TEMP 36.4
--- NOTE | 2017-06-23 08:32 | Psychiatric Progress Notes ---
Progress Note Date of Service Jun 23, 2017. Interval History 57-year-old male who lives in [facility] with his mother, has a history of depression, ADHD, methamphetamine abuse, and HIV, who presents with suicidality having bought razors with intent to slit his wrists in the context of treatment noncompliance and ongoing methamphetamine abuse. He appears to be either under the influence or just coming off of methamphetamine binge, as he is jumpy, cognitively impaired, and very depressed. He is also reporting auditory hallucinations. He is very poor insight into his substance abuse, and is unwilling to accept treatment recommendations, stating that his dealer doesn't like him so he just won't buy from him anymore. He is at high risk for suicide if discharged prematurely, so requires inpatient treatment. Chief Complaint "I have a really bad headache". Subjective Patient was seen & assessed interval progress reviewed with Nursing. Staff report he is refusing most groups, but is bright when interacting with peers and staff. He had a family meeting with his 3 sisters, Marcela, Marilee and Peggy. He is the youngest of the family and refers to himself to be a "Mamma's boy." He talked about his mother's failing health and knowing that he will be the one to find her some day, and was tearful when talking about this. Sisters acknowledged that this is a concern and as all 3 of them are nurses, they had offered to help. He said he was trying to be open with sisters, but acknowledges that over the years he had not shared much with them. He says that the voices have been present for about the past 3 yrs, almost 16/05. He says that they comment about things and make derogatory comments about him. He identifies them as 2 couples, one as an Latvian couple and one Latvian couple and says that they used to be his neighbors in [place] but that he never knew their names then. He said that the voices also told him that his sisters knew about them, although this was not the case. He says sometimes the voices affect his pain level and may push on his head to cause a headache or cause him to have a backache, may push him, or may take away his sense of taste. Talked about safety concerns, pt was willing to give his sisters the keys to his car and to remove the razor blades that are hidden there. Discussed rehab referrals and sisters are pleased to hear that he is willing to go to inpatient D&A treatment. Referrals have been made but he has not been accepted yet. Today the patient is seen in his room, where he is lying in bed awake, stating that he is having a headache. He has requested Motrin, as Tylenol was ineffective. He states that his mood has improved since admission, and he has not been suicidal. He says "I don't want to hurt myself, I don't want to be ." He feels safe in the hospital, and remains very hopeful that he will be accepted to inpatient rehabilitation, as he states he knows he needs to work on his substance abuse issues. He continues to report depressed mood, stating "I don't know what will make me happy in life." He does have hope that things will improve for him however. His auditory hallucinations have improved since admission, are less frequent, but are still present on a daily basis. He states that they make derogatory comments about him, and he tends to try to sleep more so that he will not have to listen to that. He denies that he has ever been diagnosed with a psychotic illness. He thinks that he has been on risperidone in the past, and would like to try going back on it. He is frustrated that he has not been accepted into a rehabilitation facility at, but is willing to continue treatment here while working on that. Sleep Information Total Hours of Sleep: 7.50 Meal Information Percent of Breakfast Consumed: 100 Percent of Lunch Consumed: 100 Percent of Dinner Consumed: 100 Mental Status Exam During interview pt is: alert and oriented, cooperative Appearance: disheveled, other (Poor dentition and grooming, wearing a t-shirt with food stains, broken glasses) Eye contact is: good Motor behavior is: steady gait & station, no abnormal motor movements Speech: normal in rate, rhythm & volume Affect: depressed Mood is: depressed, anxious Thought process: goal directed Thought content: reality based without delusions, worthlessness, guilt Suicidal thought are: denied Homicidal thoughts are: denied Hallucinations: auditory (multiple voices having a conversation), denies visual Cognition: language grossly intact Intelligence estimated to be: average Insight: fair Judgement: impaired Impression Thinking is clearer as he gains distance from his IV meth use, and remains committed to going to rehab. Referrals have been sent. His sisters participated in a meeting on 06/22/2017, and were supportive of inpatient substance abuse treatment. His suicidal ideation has resolved, and we are restarting an antipsychotic to target auditory hallucinations, which are at least partially substance induced, and likely to resolve with a longer period of sobriety. He is an appropriate candidate for inpatient substance abuse treatment, and expect that he will be sufficiently stable to transfer to that setting within the next couple of days. Plan (1) Suicidal ideation Q 15 min checks for safety. Work on safety plan. Family meeting with mother. 06/21 - Increase Cymbalta to 60 mg. daily 06/23 - Patient is consistently denying suicidality here, has not engaged in self- injurious behavior, and has been calm and cooperative with care. (2) Depression Noncompliant with duloxetine, and abusing meth, contributing to depression. Educate about diagnosis and recommended treatment. Patient has been noncompliant with antidepressants, and has been off duloxetine for a month. We'll restarted at 30 mg daily, and titrate as tolerated to an effective dose. Continue to monitor auditory hallucinations; unclear if these are due to his substance abuse or lack of sleep related to meth use. Consider the need for an antipsychotic if they do not resolve with supportive treatment and distance from substance use. Referred to an outpatient psychiatrist. 06/22 - Continue Cymbalta 60 mg. Patient prefers to take at HS. (3) Methamphetamine abuse Recommend inpatient rehab, as patient has failed attempt to curtail his use as an outpatient. He is refusing and demonstrates very poor insight., He has drug charges with a court date 06/29/17. Avoid prescription of controlled substances due to risk of abuse. 06/21 - Continue to recommend inpatient rehab 06/22 - Patient agreeable to rehab. Await word from the referrals. (4) HIV (human immunodeficiency virus infection) Continue Truvada and Trivicay, and consult ID per hospital requirement. 06/21 - Trivicay brought in by family. Will have sent to the pharmacy for inpatient use. (5) Neuropathy Continue home doses of duloxetine, gabapentin, and APAP prn. 06/23 - Add Motrin prn at patient's request. (6) Substance-induced psychotic disorder with hallucinations 8/31 - Auditory hallucinations have improved since admission, but continued to occur and cause distress. Patient believes he was on risperidone in the past, and is willing to resume it. Will order fasting labs for tomorrow, and start 1 mg daily at bedtime tonight. We reviewed the risks, benefits, and side effects, and he expressed understanding. Discharge / Aftercare Planning Primary Care Physician: Name: Amishavinayak Visit Code E&M Code: 81854 Inventory Assets Strengths: has housing, supportive mother Risk Factors Assessment Male: Yes : Yes /single/: Yes Higher / Fall in social status: No Access to guns: No Health problems: Yes Mental Health Diagnoses: Yes Substance use disorders: Yes Previous attempt: No Family history of suicide: No Previous psychiatric stay: Yes Hopelessness: Yes Smoker: Yes Protective Factors Assessment Lutheran beliefs: No : No Responsible for young children: No Employed: No Stable relationships: No Supportive family: Yes Good rapport with provider: No Data Vital Signs Last 24 Hrs: Date Time Temp Pulse Resp B/P (MAP) Pulse Ox O2 Delivery O2 Flow Rate FiO2 06/23/17 06:52 36.4 84 16 134/84 91 132/93 Meds Administered Last 24 Hrs: Meds Administered (Past 24Hrs) Medications (Trade) Dose Ordered Sig/Rosario Route Start Time Stop Time Status Last Admin Dose Admin Emtricitabine/ Tenofovir (Truvada 200-300mg Tab) 1 tab DAILY PO 06/21/17 09:00 06/22/17 09:23 DC 06/21/17 08:54 1 TAB HCTZ/Lisinopril (Prinzide 20-25MG Tab) 1 tab DAILY PO 06/21/17 09:00 06/22/17 09:23 DC 06/21/17 08:53 1 TAB Duloxetine HCl (Cymbalta Cap) 30 mg QAM PO 06/21/17 09:00 06/21/17 12:31 DC 06/21/17 08:53 30 MG Hydroxyzine HCl (Vistaril Tab) 50 mg HSZ PRN PO 06/21/17 08:30 07/21/17 08:29 06/23/17 01:27 50 MG Nicotine (Nicoderm Cq 21MG Patch) 1 patch QAM TD 06/21/17 09:00 07/21/17 08:59 06/22/17 09:14 1 PATCH Miscellaneous (Remove Nicoderm Patch) 1 ea HS N/A 06/21/17 22:00 07/21/17 21:59 06/21/17 22:07 1 EA Duloxetine HCl (Cymbalta Cap) 60 mg HS PO 06/22/17 22:00 07/22/17 08:59 06/22/17 21:03 60 MG Emtricitabine/ Tenofovir (Truvada 200-300mg Tab) 1 tab HS PO 06/22/17 22:00 07/21/17 08:59 06/22/17 21:02 1 TAB HCTZ/Lisinopril (Prinzide 20-25MG Tab) 1 tab HS PO 06/22/17 22:00 07/21/17 08:59 06/22/17 21:03 1 TAB Problem Qualifiers (1) Depression: Depression Type: major depressive disorder Major depression episode severity: unspecified
[2017-06-23] MEDS: NICOTINE 21 MG/24 HR TDSY TD SCH (08:59)
[2017-06-23] MEDS: IBUPROFEN 600 MG TAB PO PRN (10:50)
[2017-06-23 18:27] LABS: LSP % CELLS ANALYZED CD4 45 % (30-61); LSP ABSOLUTE CT CD4 1209 cells/uL (490-1740); LSP LYMPHOCYTES ABSOLUTE 2713 cells/uL (850-3900)
[2017-06-23] MEDS: DULOXETINE HCL 60 MG CAP PO SCH (21:43)
[2017-06-23] MEDS: GABAPENTIN 800 MG TAB PO SCH (21:43)
[2017-06-23] MEDS: LISINOPRIL/HCTZ 20/25MG TAB PO SCH (21:43)
[2017-06-23] MEDS: EMTRICITABINE/TENOFOVIR TAB PO SCH (21:44)
[2017-06-23] MEDS: DOLUTEGRAVIR SODIUM 50 MG TAB PO SCH (21:44)
[2017-06-23] MEDS ORDERED: RISPERIDONE 1 MG TAB PO SCH (22:00)
[2017-06-24 06:58] VITALS: BP 109/75; PULSE 111; PULSE 99; TEMP 36.7
[2017-06-24] MEDS: NICOTINE 21 MG/24 HR TDSY TD SCH (08:46)
--- NOTE | 2017-06-24 13:17 | Psychiatric Progress Notes ---
Progress Note Date of Service Jun 24, 2017. Interval History 57-year-old male who lives in [place] with his mother, has a history of depression, ADHD, methamphetamine abuse, and HIV, who presents with suicidality having bought razors with intent to slit his wrists in the context of treatment noncompliance and ongoing methamphetamine abuse. He appears to be either under the influence or just coming off of methamphetamine binge, as he is jumpy, cognitively impaired, and very depressed. He is also reporting auditory hallucinations. He is very poor insight into his substance abuse, and is unwilling to accept treatment recommendations, stating that his dealer doesn't like him so he just won't buy from him anymore. He is at high risk for suicide if discharged prematurely, so requires inpatient treatment. Chief Complaint "I'm here.". Subjective Patient was seen & assessed interval progress reviewed with Treatment Team. The patient is lying in bed after lunch, resting. He says that he is doing OK, but still struggling with the auditory hallucinations. the risperdal started last night has not changed the voices, but did allow him to sleep straight through the night, and denies side effects. he continues to say that he is not suicidal but wants his life to change in order to find happiness.. He remains willing for rehab, but we have not heard back from some of our referrals. He reports feeling "gasy", but is moving his bowels regularly. He denies visual experiences, appetite is good. Denies other physical complaints. Review of Systems Constitutional: No fever, No chills, No sweats, No weight loss, No weakness, No fatigue, No problem reported ENT: No hearing loss, No unusual epistaxis, No nasal symptoms, No sore throat, No tinnitus, No dental problems, No trouble swallowing, No problem reported Respiratory: No cough, No sputum, No wheezing, No shortness of breath, No dyspnea on exertion, No dyspnea at rest, No hemoptysis, No problem reported Cardiovascular: No chest pain, No orthopnea, No PND, No edema, No claudication , No palpitations, No problem reported Abdomen: + problem reported (gasy) Musculoskeletal: No joint pain, No muscle pain, No swelling, No calf pain, No problem reported Neurologic: No memory loss, No paralysis, No weakness, No numbness/tingling, No vertigo, No balance problems, No problem reported Psychiatric: + depression symptoms, + problem reported (auditory hallucinations ) Sleep Information Total Hours of Sleep: 8.75 Meal Information Percent of Breakfast Consumed: 100 Percent of Lunch Consumed: 100 Percent of Dinner Consumed: 100 Mental Status Exam During interview pt is: alert and oriented, cooperative Appearance: disheveled, other (Poor dentition and grooming, wearing a t-shirt with food stains, broken glasses) Eye contact is: good Motor behavior is: steady gait & station, no abnormal motor movements Speech: normal in rate, rhythm & volume Affect: depressed Mood is: depressed, anxious Thought process: goal directed Thought content: reality based without delusions, worthlessness, guilt Suicidal thought are: denied Homicidal thoughts are: denied Hallucinations: auditory (multiple voices having a conversation), denies visual Cognition: language grossly intact Intelligence estimated to be: average Insight: fair Judgement: impaired Impression Dru remains committed to rehab and we await call back from referrals. Risperdal not yet effective for voices so will add 1 mg. q AM starting tomorrow. Will also order simethicone for his gas. He is not suicidal and would be ready for discharge to rehab when one is available. Plan (1) Suicidal ideation Q 15 min checks for safety. Work on safety plan. Family meeting with mother. 06/21 - Increase Cymbalta to 60 mg. daily 06/23 - Patient is consistently denying suicidality here, has not engaged in self- injurious behavior, and has been calm and cooperative with care. (2) Depression Noncompliant with duloxetine, and abusing meth, contributing to depression. Educate about diagnosis and recommended treatment. Patient has been noncompliant with antidepressants, and has been off duloxetine for a month. We'll restarted at 30 mg daily, and titrate as tolerated to an effective dose. Continue to monitor auditory hallucinations; unclear if these are due to his substance abuse or lack of sleep related to meth use. Consider the need for an antipsychotic if they do not resolve with supportive treatment and distance from substance use. Referred to an outpatient psychiatrist. 06/22 - Continue Cymbalta 60 mg. Patient prefers to take at HS. (3) Methamphetamine abuse Recommend inpatient rehab, as patient has failed attempt to curtail his use as an outpatient. He is refusing and demonstrates very poor insight., He has drug charges with a court date 06/29/17. Avoid prescription of controlled substances due to risk of abuse. 06/21 - Continue to recommend inpatient rehab 06/22 - Patient agreeable to rehab. Await word from the referrals. (4) HIV (human immunodeficiency virus infection) Continue Truvada and Trivicay, and consult ID per hospital requirement. 06/21 - Trivicay brought in by family. Will have sent to the pharmacy for inpatient use. (5) Neuropathy Continue home doses of duloxetine, gabapentin, and APAP prn. 06/23 - Add Motrin prn at patient's request. (6) Substance-induced psychotic disorder with hallucinations 06/23 - Auditory hallucinations have improved since admission, but continued to occur and cause distress. Patient believes he was on risperidone in the past, and is willing to resume it. Will order fasting labs for tomorrow, and start 1 mg daily at bedtime tonight. We reviewed the risks, benefits, and side effects, and he expressed understanding. 06/24 - Increase Risperdal to 1 mg. BID Discharge / Aftercare Planning Primary Care Physician: Name: Dr Castillo Visit Code E&M Code: 43422 Inventory Assets Strengths: has housing, supportive mother Risk Factors Assessment Male: Yes : Yes /single/: Yes Higher / Fall in social status: No Access to guns: No Health problems: Yes Mental Health Diagnoses: Yes Substance use disorders: Yes Previous attempt: No Family history of suicide: No Previous psychiatric stay: Yes Hopelessness: Yes Smoker: Yes Protective Factors Assessment Jew beliefs: No : No Responsible for young children: No Employed: No Stable relationships: No Supportive family: Yes Good rapport with provider: No Data Vital Signs Last 24 Hrs: Date Time Temp Pulse Resp B/P (MAP) Pulse Ox O2 Delivery O2 Flow Rate FiO2 06/24/17 06:58 36.7 99 16 109/75 111 109/75 Meds Administered Last 24 Hrs: Meds Administered (Past 24Hrs) Medications (Trade) Dose Ordered Sig/Rosario Route Start Time Stop Time Status Last Admin Dose Admin Duloxetine HCl (Cymbalta Cap) 60 mg HS PO 06/22/17 22:00 07/22/17 08:59 06/23/17 21:43 60 MG Emtricitabine/ Tenofovir (Truvada 200-300mg Tab) 1 tab HS PO 06/22/17 22:00 07/21/17 08:59 06/23/17 21:44 1 TAB HCTZ/Lisinopril (Prinzide 20-25MG Tab) 1 tab HS PO 06/22/17 22:00 07/21/17 08:59 06/23/17 21:43 1 TAB Ibuprofen (Motrin Tab) 600 mg TID PRN PO 06/23/17 10:30 07/23/17 10:29 06/23/17 10:50 600 MG Risperidone (Risperdal Tab) 1 mg HS PO 06/23/17 22:00 07/23/17 21:59 06/23/17 21:43 1 MG Lab Results Last 24 Hrs: 06/20/17 09:54 Red Blood Count 5.24, Mean Corpuscular Volume 89.7, Mean Corpuscular Hemoglobin 32.4, Mean Corpuscular Hemoglobin Concent 36.2, Mean Platelet Volume 9.7, Neutrophils (%) (Auto) 66.9, Lymphocytes (%) (Auto) 20.1, Monocytes (%) (Auto) 10.2, Eosinophils (%) (Auto) 2.1, Basophils (%) (Auto) 0.4, Neutrophils # (Auto ) 9.47, Lymphocytes # (Auto) 2.84, Monocytes # (Auto) 1.44, Eosinophils # (Auto ) 0.29, Basophils # (Auto) 0.05 06/20/17 09:54 Test 06/20/17 09:25 06/20/17 09:54 06/20/17 10:02 06/20/17 15:44 Urine Color YELLOW Urine Appearance CLEAR (CLEAR) Urine pH 6.0 (4.5-7.5) Urine Specific [place] 1.018 (1.000-1.030) Urine Protein NEG (NEG) Urine Glucose (UA) TRACE (NEG) Urine Ketones NEG (NEG) Urine Occult Blood NEG (NEG) Urine Nitrite NEG (NEG) Urine Bilirubin NEG (NEG) Urine Urobilinogen NEG (NEG) Urine Leukocyte Esterase SMALL (NEG) Urine WBC (Auto) 5-10 /hpf (0-5) Urine RBC (Auto) 0-4 /hpf (0-4) Urine Hyaline Casts (Auto) 0 /lpf (0-5) Urine Epithelial Cells (Auto) 0-5 /lpf (0-5) Urine Bacteria (Auto) NEG (NEG) Urine Opiates Screen NEG (NEG) Urine Methadone, Qualitative NEG (NEG) Urine Barbiturates NEG (NEG) Urine Phencyclidine (PCP) Level NEG (NEG) Urine Amphetamines Confirmation [id number] NG/ML ([id number]) Ur Amphetamine/Methamphetamine POS (NEG) Urine Methamphetamine Confirmation [id number] NG/ML ([id number]) MDMA (Ecstasy) Screen NEG (NEG) Urine Benzodiazepines Screen NEG (NEG) Urine Cocaine Metabolite NEG (NEG) Urine Marijuana (THC) NEG (NEG) White Blood Count 14.13 K/uL (4.8-10.8) Red Blood Count 5.24 M/uL (4.7-6.1) Hemoglobin 17.0 g/dL (14.0-18.0) Hematocrit 47.0 % (42-52) Mean Corpuscular Volume 89.7 fL (80-100) Mean Corpuscular Hemoglobin 32.4 pg (25-34) Mean Corpuscular Hemoglobin Concent 36.2 g/dl (32-36) Platelet Count 298 K/uL (130-400) Mean Platelet Volume 9.7 fL (7.4-10.4) Neutrophils (%) (Auto) 66.9 % Lymphocytes (%) (Auto) 20.1 % Monocytes (%) (Auto) 10.2 % Eosinophils (%) (Auto) 2.1 % Basophils (%) (Auto) 0.4 % Neutrophils # (Auto) 9.47 K/uL (1.4-6.5) Lymphocytes # (Auto) 2.84 K/uL (1.2-3.4) Monocytes # (Auto) 1.44 K/uL (0.11-0.59) Eosinophils # (Auto) 0.29 K/uL (0-0.5) Basophils # (Auto) 0.05 K/uL (0-0.2) RDW Standard Deviation 41.3 fL (36.4-46.3) RDW Coefficient of Variation 12.7 % (11.5-14.5) Immature Granulocyte % (Auto) 0.3 % Immature Granulocyte # (Auto) 0.04 K/uL (0.00-0.02) Anion Gap 9.0 mmol/L (3-11) Est Creatinine Clear Calc Drug Dose 98.9 ml/min Estimated GFR () 87.1 Estimated GFR (Non- 75.2 BUN/Creatinine Ratio 11.6 (10-20) Calcium Level 8.8 mg/dl (8.5-10.1) Total Bilirubin 0.7 mg/dl (0.2-1) Aspartate Amino Transf (AST/SGOT) 30 U/L (15-37) Alanine Aminotransferase (ALT/SGPT) 48 U/L (12-78) Alkaline Phosphatase 91 U/L (45-117) Total Protein 7.5 gm/dl (6.4-8.2) Albumin 3.6 gm/dl (3.4-5.0) Globulin 3.9 gm/dl (2.5-4.0) Albumin/Globulin Ratio 0.9 (0.9-2) Ethyl Alcohol mg/dL < 3.0 mg/dl (0-3) Bedside Glucose 90 mg/dl (70-99) Absolute Lymphocytes 2713 cells/uL (850-3900) Percent CD4 Cells 45 % (30-61) Absolute CD4 Count 1209 cells/uL (490-1740) HIV-1 RNA, Quantitative copies/mL <20 copies/mL (<20) HIV-1 RNA, Quant logcopies/mL <1.30 Log cps/mL (<1.30) Problem Qualifiers (1) Depression: Depression Type: major depressive disorder Major depression episode severity: unspecified
[2017-06-24] MEDS: SIMETHICONE 80 MG CHEW PO PRN ×2 (14:47→21:17)
[2017-06-24] MEDS: ALUMINUM/MAGNESIUM SUSP 30 ML UDC PO PRN (19:28)
[2017-06-24] MEDS: RISPERIDONE 1 MG TAB PO SCH (21:16)
[2017-06-24] MEDS: DOLUTEGRAVIR SODIUM 50 MG TAB PO SCH (21:16)
[2017-06-24] MEDS: GABAPENTIN 800 MG TAB PO SCH (21:16)
[2017-06-24] MEDS: DULOXETINE HCL 60 MG CAP PO SCH (21:16)
[2017-06-24] MEDS: EMTRICITABINE/TENOFOVIR TAB PO SCH (21:16)
[2017-06-24] MEDS: LISINOPRIL/HCTZ 20/25MG TAB PO SCH (21:16)
[2017-06-25 07:10] VITALS: BP_SYST 114; BP_SYST 123; BP_DIAS 75; BP_DIAS 82; PULSE 106; PULSE 89; TEMP 36.6
[2017-06-25] MEDS: NICOTINE 21 MG/24 HR TDSY TD SCH (09:58)
[2017-06-25] MEDS: RISPERIDONE 1 MG TAB PO SCH ×2 (09:59→21:23)
[2017-06-25] MEDS: SIMETHICONE 80 MG CHEW PO PRN ×2 (11:42→18:07)
--- NOTE | 2017-06-25 12:59 | Psychiatric Progress Notes ---
Progress Note Date of Service Jun 25, 2017. Interval History 57-year-old male who lives in [facility] with his mother, has a history of depression, ADHD, methamphetamine abuse, and HIV, who presents with suicidality having bought razors with intent to slit his wrists in the context of treatment noncompliance and ongoing methamphetamine abuse. On admission he appeared to be either under the influence or just coming off of methamphetamine binge, as he was jumpy, cognitively impaired, and very depressed. He is also reporting auditory hallucinations. Chief Complaint "the voices are constant, mainly say negative things". Subjective Patient was seen & assessed interval progress reviewed with Nursing. Sleeps alot on evening shift which he attributes to avoiding tasks to deal with voices. He doesn't appear to be responding to internal stimuli, no other signs of encephalopathy. Patient denies any thoughts to harm himself and states that the voices are not command in nature. He states that they say derrogatory things about him, mainly what he is feeling with regards to his depression. Tolerating Risperdal. Dose increase was written to start this am and cooperative with labs. Review of Systems Psych: denies symptoms other than stated above Constitutional: denied Cardiovascular: denied GI: denied Neurologic: denied Remainder of 10 body systems also reviewed and denied other than noted above. Sleep Information Total Hours of Sleep: 5.50 Meal Information Percent of Breakfast Consumed: 100 Percent of Lunch Consumed: 100 Percent of Dinner Consumed: 100 Mental Status Exam During interview pt is: alert and oriented, cooperative Appearance: appropriately groomed Eye contact is: good Motor behavior is: steady gait & station, no abnormal motor movements Speech: normal in rate, rhythm & volume Affect: depressed Mood is: depressed, anxious Thought process: goal directed Thought content: reality based without delusions, worthlessness, guilt Suicidal thought are: denied Homicidal thoughts are: denied Hallucinations: auditory (multiple voices having a conversation), denies visual Cognition: language grossly intact Intelligence estimated to be: average Insight: fair Judgement: impaired Impression Dru continues to express willingness to attend rehab. He is no longer suicidal and has been calm/cooperative with unit routines. His nobles are not command in nature and are residual from his substance ingestion. Plan (1) Suicidal ideation Q 15 min checks for safety. Work on safety plan. Family meeting with mother. 06/21 - Increase Cymbalta to 60 mg. daily 06/23 - Patient is consistently denying suicidality here, has not engaged in self- injurious behavior, and has been calm and cooperative with care. (2) Depression Noncompliant with duloxetine, and abusing meth, contributing to depression. Educate about diagnosis and recommended treatment. Patient has been noncompliant with antidepressants, and has been off duloxetine for a month. We'll restarted at 30 mg daily, and titrate as tolerated to an effective dose. Continue to monitor auditory hallucinations; unclear if these are due to his substance abuse or lack of sleep related to meth use. Consider the need for an antipsychotic if they do not resolve with supportive treatment and distance from substance use. Referred to an outpatient psychiatrist. 06/22 - Continue Cymbalta 60 mg. Patient prefers to take at HS. (3) Methamphetamine abuse Recommend inpatient rehab, as patient has failed attempt to curtail his use as an outpatient. He is refusing and demonstrates very poor insight., He has drug charges with a court date 06/29/17. Avoid prescription of controlled substances due to risk of abuse. 06/21 - Continue to recommend inpatient rehab 06/22 - Patient agreeable to rehab. Await word from the referrals. (4) HIV (human immunodeficiency virus infection) Continue Truvada and Trivicay, and consult ID per hospital requirement. 06/21 - Trivicay brought in by family. Will have sent to the pharmacy for inpatient use. (5) Neuropathy Continue home doses of duloxetine, gabapentin, and APAP prn. 06/23 - Add Motrin prn at patient's request. (6) Substance-induced psychotic disorder with hallucinations 06/23 - Auditory hallucinations have improved since admission, but continued to occur and cause distress. Patient believes he was on risperidone in the past, and is willing to resume it. Will order fasting labs for tomorrow, and start 1 mg daily at bedtime tonight. We reviewed the risks, benefits, and side effects, and he expressed understanding. 06/24 - Increase Risperdal to 1 mg. BID Discharge / Aftercare Planning Primary Care Physician: Name: Dr Castillo Visit Code E&M Code: 44103 Inventory Assets Strengths: has housing, supportive mother Risk Factors Assessment Male: Yes : Yes /single/: Yes Higher / Fall in social status: No Access to guns: No Health problems: Yes Mental Health Diagnoses: Yes Substance use disorders: Yes Previous attempt: No Family history of suicide: No Previous psychiatric stay: Yes Hopelessness: Yes Smoker: Yes Protective Factors Assessment Confucianist beliefs: No : No Responsible for young children: No Employed: No Stable relationships: No Supportive family: Yes Good rapport with provider: No Data Vital Signs Last 24 Hrs: Date Time Temp Pulse Resp B/P (MAP) Pulse Ox O2 Delivery O2 Flow Rate FiO2 06/25/17 07:10 36.6 89 16 114/75 106 123/82 Meds Administered Last 24 Hrs: Meds Administered (Past 24Hrs) Medications (Trade) Dose Ordered Sig/Rosario Route Start Time Stop Time Status Last Admin Dose Admin Risperidone (Risperdal Tab) 1 mg HS PO 06/23/17 22:00 06/24/17 13:18 DC 06/23/17 21:43 1 MG Risperidone (Risperdal Tab) 1 mg BID PO 06/24/17 22:00 07/24/17 21:59 06/25/17 09:59 1 MG Simethicone (Mylicon Chew Tab) 80 mg Q6H PRN PO 06/24/17 13:30 07/24/17 13:29 06/25/17 11:42 80 MG Lab Results Last 24 Hrs: Last 24 Hours Test 06/25/17 07:04 Fasting Glucose 109 mg/dl Triglycerides Level 149 mg/dl Cholesterol Level 130 mg/dl HDL Cholesterol 43 mg/dl LDL Cholesterol, Calculated 57 mg/dl VLDL Cholesterol, Calculated 30 mg/dl Cholesterol/HDL Ratio 3.0 Problem Qualifiers (1) Depression: Depression Type: major depressive disorder Major depression episode severity: unspecified
[2017-06-25] MEDS: ALUMINUM/MAGNESIUM SUSP 30 ML UDC PO PRN (20:35)
[2017-06-25] MEDS: DULOXETINE HCL 60 MG CAP PO SCH (21:22)
[2017-06-25] MEDS: LISINOPRIL/HCTZ 20/25MG TAB PO SCH (21:22)
[2017-06-25] MEDS: GABAPENTIN 800 MG TAB PO SCH (21:22)
[2017-06-25] MEDS: DOLUTEGRAVIR SODIUM 50 MG TAB PO SCH (21:23)
[2017-06-25] MEDS: EMTRICITABINE/TENOFOVIR TAB PO SCH (21:23)
[2017-06-26 07:06] VITALS: BP_SYST 113; BP_SYST 118; BP_DIAS 78; BP_DIAS 79; PULSE 102; PULSE 83; TEMP 36.5
[2017-06-26] MEDS: RISPERIDONE 1 MG TAB PO SCH ×2 (09:28→21:13)
[2017-06-26] MEDS: SIMETHICONE 80 MG CHEW PO PRN ×2 (09:28→18:48)
[2017-06-26] MEDS: NICOTINE 21 MG/24 HR TDSY TD SCH (09:30)
--- NOTE | 2017-06-26 15:31 | Psychiatric Progress Notes ---
Progress Note Date of Service Jun 26, 2017. Interval History 57-year-old male who lives in [place] with his mother, has a history of depression, ADHD, methamphetamine abuse, and HIV, who presents with suicidality having bought razors with intent to slit his wrists in the context of treatment noncompliance and ongoing methamphetamine abuse. On admission he appeared to be either under the influence or just coming off of methamphetamine binge, as he was jumpy, cognitively impaired, and very depressed. He is also reporting auditory hallucinations. Chief Complaint "they're gone"--referring to his hallucinations Subjective Patient was seen & assessed interval progress reviewed with Nursing. Patient had a good evening, states that his hallucinations resolved "almost immediately " following third dose of Risperdal. He continues to deny SI. He filed a 72 hour notice as "I'm sick of waiting around" and maintains he would like to spend time with 91 yo mother prior to entering rehab. Review of Systems Psych: denies symptoms other than stated above Constitutional: denied Cardiovascular: denied GI: denied Neurologic: denied Remainder of 10 body systems also reviewed and denied other than noted above. Sleep Information Total Hours of Sleep: 6.50 Meal Information Percent of Breakfast Consumed: 100 Percent of Lunch Consumed: 100 Percent of Dinner Consumed: 100 Mental Status Exam During interview pt is: alert and oriented, cooperative Appearance: appropriately groomed Eye contact is: good Motor behavior is: steady gait & station, no abnormal motor movements Speech: normal in rate, rhythm & volume Affect: constricted Mood is: other ("improved") Thought process: goal directed Thought content: reality based without delusions Suicidal thought are: denied Homicidal thoughts are: denied Hallucinations: denies auditory, denies visual Cognition: language grossly intact Intelligence estimated to be: average Insight: fair Judgement: limited Impression Dru continues to express willingness to attend rehab. He is no longer suicidal and has been calm/cooperative with unit routines. His nobles are not command in nature and have resolved within the past 24 hours. Plan (1) Suicidal ideation Q 15 min checks for safety. Work on safety plan. Family meeting with mother. 06/21 - Increase Cymbalta to 60 mg. daily 06/23 - Patient is consistently denying suicidality here, has not engaged in self- injurious behavior, and has been calm and cooperative with care. (2) Depression on admission--Noncompliant with duloxetine, and abusing meth, contributing to depression. Educate about diagnosis and recommended treatment. Patient has been noncompliant with antidepressants, and has been off duloxetine for a month. We'll restarted at 30 mg daily, and titrate as tolerated to an effective dose. Continue to monitor auditory hallucinations; unclear if these are due to his substance abuse or lack of sleep related to meth use. Consider the need for an antipsychotic if they do not resolve with supportive treatment and distance from substance use. Referred to an outpatient psychiatrist. 06/22 - Continue Cymbalta 60 mg. Patient prefers to take at HS. (3) Methamphetamine abuse Recommend inpatient rehab, as patient has failed attempt to curtail his use as an outpatient. He is refusing and demonstrates very poor insight., He has drug charges with a court date 06/29/17. Avoid prescription of controlled substances due to risk of abuse. 06/21 - Continue to recommend inpatient rehab 06/22 - Patient agreeable to rehab. Await word from the referrals. (4) HIV (human immunodeficiency virus infection) Continue Truvada and Trivicay, and consult ID per hospital requirement. 06/21 - Trivicay brought in by family. Will have sent to the pharmacy for inpatient use. (5) Neuropathy Continue home doses of duloxetine, gabapentin, and APAP prn. 06/23 - Add Motrin prn at patient's request. (6) Substance-induced psychotic disorder with hallucinations 06/23 - Auditory hallucinations have improved since admission, but continued to occur and cause distress. Patient believes he was on risperidone in the past, and is willing to resume it. Will order fasting labs for tomorrow, and start 1 mg daily at bedtime tonight. We reviewed the risks, benefits, and side effects, and he expressed understanding. 06/24 - Increase Risperdal to 1 mg. BID 06/25 --hallucinations resolved--psychiatrically stable for discharge to rehab. Patient is agreeable to remain hospitalized at this time to await call back from [facility]. Discharge / Aftercare Planning Primary Care Physician: Name: Dr Castillo Visit Code E&M Code: 77307 Inventory Assets Strengths: has housing, supportive mother Risk Factors Assessment Male: Yes : Yes /single/: Yes Higher / Fall in social status: No Access to guns: No Health problems: Yes Mental Health Diagnoses: Yes Substance use disorders: Yes Previous attempt: No Family history of suicide: No Previous psychiatric stay: Yes Hopelessness: Yes Smoker: Yes Protective Factors Assessment Pentecostalism beliefs: No : No Responsible for young children: No Employed: No Stable relationships: No Supportive family: Yes Good rapport with provider: No Data Vital Signs Last 24 Hrs: Date Time Temp Pulse Resp B/P (MAP) Pulse Ox O2 Delivery O2 Flow Rate FiO2 06/26/17 07:06 36.5 83 16 113/78 102 118/79 Meds Administered Last 24 Hrs: Meds Administered (Past 24Hrs) Medications (Trade) Dose Ordered Sig/Rosario Route Start Time Stop Time Status Last Admin Dose Admin Risperidone (Risperdal Tab) 1 mg BID PO 06/24/17 22:00 07/24/17 21:59 06/26/17 09:28 1 MG Problem Qualifiers (1) Depression: Depression Type: major depressive disorder Major depression episode severity: unspecified
[2017-06-26] MEDS: ALUMINUM/MAGNESIUM SUSP 30 ML UDC PO PRN (15:47)
[2017-06-26] MEDS: IBUPROFEN 600 MG TAB PO PRN (16:11)
[2017-06-26] MEDS: GABAPENTIN 800 MG TAB PO SCH (21:12)
[2017-06-26] MEDS: DULOXETINE HCL 60 MG CAP PO SCH (21:12)
[2017-06-26] MEDS: DOLUTEGRAVIR SODIUM 50 MG TAB PO SCH (21:13)
[2017-06-26] MEDS: EMTRICITABINE/TENOFOVIR TAB PO SCH (21:13)
[2017-06-26] MEDS: LISINOPRIL/HCTZ 20/25MG TAB PO SCH (21:13)
[2017-06-26] MEDS: hydrOXYzine HCL 25 MG TAB PO PRN (23:56)
[2017-06-27 07:12] VITALS: BP_SYST 109; BP_SYST 116; BP_DIAS 74; BP_DIAS 77; PULSE 103; PULSE 89; TEMP 36.9
[2017-06-27] MEDS: RISPERIDONE 1 MG TAB PO SCH (08:02)
[2017-06-27] MEDS: NICOTINE 21 MG/24 HR TDSY TD SCH (08:02)
[2017-06-27] MEDS ORDERED: RSP1 PO (11:56)
[2017-06-27] MEDS ORDERED: NICO21DI4 TD (11:56)
--- NOTE | 2017-06-27 12:05 | Discharge Instructions ---
Discharge Information Report Includes Report will include the: Discharge Instructions & Summary Admission Admission Date / Time: Jun 20, 2017 at 13:28 Reason for Admission: Major Depressive Disorder Recurrent Discharge Discharge Diagnosis / Problem: substance induced hallucinations Condition at Discharge: Good Discharge Goals Goal(s): Improve function, Improve disease control Activity Recommendations Activity Limitations: resume your previous activity . Instructions / Follow-Up Instructions / Follow-Up . SPECIAL CARE INSTRUCTIONS: 1. Follow through with your scheduled aftercare appointments. If unable to keep an appointment, please call to reschedule. 2. Take your medication only as prescribed. Medication should not be changed or stopped without the approval of your doctor. In the event of worsening symptoms or concerns about side effects, contact your doctor immediately. 3. Utilize new healthy coping skills, anger management skills, and stress management skills learned during your hospitalization. Journal feelings and process them with a support person. Identify stressors or situations that may result in relapse, deterioration or inappropriate behaviors and develop a plan to deal with those issues. 4. If your coping skills are ineffective and you are in crisis, contact your outpatient providers for direction. If unable to reach your providers, please call the CAN HELP LINE AT or go to the closest Emergency Room. 5. Avoid alcohol and un-prescribed drugs. 6. You have been provided with the Mental Health Advance Directives Pamphlet for your review. AFTERCARE APPOINTMENTS: * Please call your insurance company prior to your scheduled appointment to confirm your aftercare providers are covered. Take your insurance information to your appointments. . Discharge / Aftercare Planning Primary Care Physician: Name: Dr Castillo . Follow-Up Care Plan for Follow-Up Care: Your condition has stabilized to return home to spend time with family until rehab bed is available. Continue to abstain from drugs and alcohol and take your medications with you when you enter rehab on 06/30/17. As physicians we encourage patients to stop smoking but recognize the timing may not be right for you to do so. We have sent 2 weeks supply of nicotine patches to your pharmacy and you will be entered substance abuse treatment facility on 06/30/17 where you will receive additional counseling. If you decide to resume smoking, we recommend not using the patches. You may decline them at the pharmacy so you are not charged. Current Hospital Diet Patient's current hospital diet: Regular Diet Discharge Diet Recommended Diet: Regular Diet Procedures Procedures Performed: No Pending Studies Pending Studies at Discharge: No Medical Emergencies . Who to Call and When: Medical Emergencies: For questions or emergencies related to your hospital stay, please contact the Inpatient Behavioral Health Unit at [phone]. A crisis clinician is on-call 16/05 for the Behavioral Health Unit for emergencies At any time you feel your situation is an emergency, you may also call 911 immediately. . Non-Emergent Contact Non-Emergency issues call your: Primary Care Provider Call Non-Emergent contact if: you have any medication questions Advance Directives Existing Advance Directive: No Do You Have an Existing Mental: No Existing Living Will: No Existing Power of Medical Staff Specialist: No Advance Directives Info Given: To Pt/S.O. Advance Directives Reason: Declines as Mental Health Visit. Discharge Summary Admission HPI Per the Admitting provider: Patient presented to the emergency room early this morning stating that he had been suicidal for about a month, and last night but razor blades and drove to a remote area with a plan to cut his wrists. He then decided to come to the hospital and seek help instead. His drug screen was positive for amphetamine/ methamphetamine, and he admitted to using crystal meth. He was just hospitalized on the medical service from 05/12/2017 through 05/14/2017 after a binge on methamphetamine. He was agitated during that admission and had to be sedated with Haldol and Ativan. He was seen by Dr. salas for psychiatric consultation on 05/13/2017, as his sister had completed a 302 petition. He had apparently expressed suicidal thoughts while under the influence during a verbal altercation with his 2 sisters, stating that he was going to "end it all. " Once sober, he denied suicidal thoughts, but admitted to heavy drug use. He had used meth in the past, was clean for 18 years, and then relapsed in September 2016. He described a pattern of binge use, and stated he wanted to quit. He also reported auditory hallucinations and mild depressive symptoms. The recommendations were for inpatient substance abuse treatment, continue duloxetine, and discontinue Ritalin. He refused inpatient rehabilitation, and was given information about outpatient substance abuse treatment facilities. Today, he reports he drove around [employer] this morning to find razor blades, had to go to numerous stores before he found some, and then drove to [facility] where he planned to end his life. He reported stressors of relationship problems, stating that he thought he had a dating possibility but it didn't work out, and said he felt "really shitty about myself." He has been using meth IV regularly, states his last use was about 4 days ago, and his drug screen was positive. He also has criminal charges for drug possession with a court date 06/29/2017. He has been noncompliant with his Cymbalta and has not taken it for about a month, and has also missed doses of his HIV meds. He endorses depressed and anxious mood, decreased appetite and impaired sleep when using meth, impaired focus, and poor self-esteem. He reports daily anxiety and restlessness. He denies symptoms of otto. He endorses auditory hallucinations , which she says "are really hallucinations, my sisters found people to... Because of my drug use... They just made me worse, played on my loneliness." He has significant difficulty staying on track or explaining this further, but states that his sister's control the voices he hears, and says "they know what I 'm saying, can see what I see." The voices make negative comments about him, saying "you're not attractive, weird body, not interesting, boring sexually." He repeatedly refers to "people I thought were friends, but turned out not to be." He states that his drug dealer was somebody he thought he might have a romantic relationship with, but then found out "he doesn't like me, actually hates me." He minimizes his drug use, stating he doesn't think he needs treatment because he was able to stay clean for 18 years, and because his drug dealer doesn't like him so he won't be able to buy drugs from him anymore. He says his primary problem is that "I don't like my body, others don't like my body, don't like my looks." He gives inconsistent reports about his methamphetamine abuse, initially stating that he is only using 1-2 times a week , but then stating that he'll buy 2 g a week and use it until it's gone. He says that he didn't use for 3 weeks after his discharge from this hospital 05/14, and states he was arrested 2 weeks after that for meth possession. He further states that he hasn't worked in a year and a half due to his drug use, and relies on his family to support him financially. He states that he did not attend any substance abuse treatment as recommended at his last hospital stay. Hospital Course (1) Suicidal ideation Q 15 min checks for safety. Work on safety plan. Family meeting with mother. 06/21 - Increase Cymbalta to 60 mg. daily 06/23 - Patient is consistently denying suicidality here, has not engaged in self- injurious behavior, and has been calm and cooperative with care. (2) Depression on admission--Noncompliant with duloxetine, and abusing meth, contributing to depression. Educate about diagnosis and recommended treatment. Patient has been noncompliant with antidepressants, and has been off duloxetine for a month. We'll restarted at 30 mg daily, and titrate as tolerated to an effective dose. Continue to monitor auditory hallucinations; unclear if these are due to his substance abuse or lack of sleep related to meth use. Consider the need for an antipsychotic if they do not resolve with supportive treatment and distance from substance use. Referred to an outpatient psychiatrist. 06/22 - Continue Cymbalta 60 mg. Patient prefers to take at HS. (3) Methamphetamine abuse Recommend inpatient rehab, as patient has failed attempt to curtail his use as an outpatient. He is refusing and demonstrates very poor insight., He has drug charges with a court date 06/29/17. Avoid prescription of controlled substances due to risk of abuse. 06/21 - Continue to recommend inpatient rehab 06/22 - Patient agreeable to rehab. Await word from the referrals. (4) HIV (human immunodeficiency virus infection) Continue Truvada and Trivicay, and consult ID per hospital requirement. 06/21 - Trivicay brought in by family. Will have sent to the pharmacy for inpatient use. (5) Neuropathy Continue home doses of duloxetine, gabapentin, and APAP prn. 06/23 - Add Motrin prn at patient's request. (6) Substance-induced psychotic disorder with hallucinations 06/23 - Auditory hallucinations have improved since admission, but continued to occur and cause distress. Patient believes he was on risperidone in the past, and is willing to resume it. Will order fasting labs for tomorrow, and start 1 mg daily at bedtime tonight. We reviewed the risks, benefits, and side effects, and he expressed understanding. 06/24 - Increase Risperdal to 1 mg. BID 06/25 --hallucinations resolved--psychiatrically stable for discharge to rehab. Patient is agreeable to remain hospitalized at this time to await call back from [facility]. Risk Factors Assessment Male: Yes : Yes /single/: Yes Higher / Fall in social status: No Access to guns: No Health problems: Yes Mental Health Diagnoses: Yes Substance use disorders: Yes Previous attempt: No Family history of suicide: No Previous psychiatric stay: Yes Hopelessness: Yes Smoker: Yes Protective Factors Assessment Latter-Day beliefs: No : No Responsible for young children: No Employed: No Stable relationships: No Supportive family: Yes Good rapport with provider: No Day of Discharge Assessment Dru submitted a 72 hour notice that would tomorrow. He received word this am that he is accepted to [facility] rehab on 06/30 and desires to return home to spend time with family prior to entering rehab. He is committed to sobriety. He has consistently denied SI throughout his stay and nobles resolved with increase in Risperdal. He is stable for discharge with follow-up care per rehab. He is aware he will need additional psychiatric care following rehab and prefers that be addressed further in the course of his recovery. MSE upon discharge: alert, cooperative, thoughts are organized, mood is "great" , affect is broad/spontaneous. He denies SI/HI/nobles and does not appear to be responding to internal stimuli. Laboratory Test 06/20/17 09:25 06/20/17 09:54 06/20/17 10:02 06/20/17 15:44 Urine Color YELLOW Urine Appearance CLEAR Urine pH 6.0 Urine Specific [place] 1.018 Urine Protein NEG Urine Glucose (UA) TRACE Urine Ketones NEG Urine Occult Blood NEG Urine Nitrite NEG Urine Bilirubin NEG Urine Urobilinogen NEG Urine Leukocyte Esterase SMALL Urine WBC (Auto) 5-10 Urine RBC (Auto) 0-4 Urine Hyaline Casts (Auto) 0 Urine Epithelial Cells (Auto) 0-5 Urine Bacteria (Auto) NEG Urine Opiates Screen NEG Urine Methadone, Qualitative NEG Urine Barbiturates NEG Urine Phencyclidine (PCP) Level NEG Urine Amphetamines Confirmation [id number] Ur Amphetamine/Methamphetamine POS Urine Methamphetamine Confirmation [id number] MDMA (Ecstasy) Screen NEG Urine Benzodiazepines Screen NEG Urine Cocaine Metabolite NEG Urine Marijuana (THC) NEG White Blood Count 14.13 Red Blood Count 5.24 Hemoglobin 17.0 Hematocrit 47.0 Mean Corpuscular Volume 89.7 Mean Corpuscular Hemoglobin 32.4 Mean Corpuscular Hemoglobin Concent 36.2 Platelet Count 298 Mean Platelet Volume 9.7 Neutrophils (%) (Auto) 66.9 Lymphocytes (%) (Auto) 20.1 Monocytes (%) (Auto) 10.2 Eosinophils (%) (Auto) 2.1 Basophils (%) (Auto) 0.4 Neutrophils # (Auto) 9.47 Lymphocytes # (Auto) 2.84 Monocytes # (Auto) 1.44 Eosinophils # (Auto) 0.29 Basophils # (Auto) 0.05 RDW Standard Deviation 41.3 RDW Coefficient of Variation 12.7 Immature Granulocyte % (Auto) 0.3 Immature Granulocyte # (Auto) 0.04 Sodium Level 138 Potassium Level 3.7 Chloride Level 104 Carbon Dioxide Level 25 Anion Gap 9.0 Blood Urea Nitrogen 13 Creatinine 1.10 Est Creatinine Clear Calc Drug Dose 98.9 Estimated GFR () 87.1 Estimated GFR (Non- 75.2 BUN/Creatinine Ratio 11.6 Random Glucose 92 Calcium Level 8.8 Total Bilirubin 0.7 Aspartate Amino Transferase (AST) 30 Alanine Aminotransferase (ALT) 48 Alkaline Phosphatase 91 Total Protein 7.5 Albumin 3.6 Globulin 3.9 Albumin/Globulin Ratio 0.9 Ethyl Alcohol mg/dL < 3.0 POC Glucose 90 Absolute Lymphocytes 2713 Percent CD4 Cells 45 Absolute CD4 Count 1209 HIV-1 RNA, Quantitative copies/mL <20 HIV-1 RNA, Quant logcopies/mL <1.30 Test 06/25/17 07:04 Fasting Glucose 109 Triglycerides Level 149 Cholesterol Level 130 HDL Cholesterol 43 LDL Cholesterol, Calculated 57 VLDL Cholesterol, Calculated 30 Cholesterol/HDL Ratio 3.0 Total Time Total Time Spent (min): Greater than 30 minutes Total Time Included: examination of the patient, discharge planning, medication reconciliation Tobacco Cessation at Discharge Smoking Status: Current Every Day Smoker FDA approved Prescription: nicotine replacement product Problem Qualifiers (1) Depression: Depression Type: major depressive disorder Major depression episode severity: unspecified
== END 2017-06-27 14:12 | disposition home or self-care (01) | DRG 885 ==
LOC: C.EDB 09:13 → C.MHU 13:28
PROVIDERS: ADMIT Psychiatry & Neurology Psychiatry; ATTEND Psychiatry & Neurology Psychiatry
DX: F33.9 Major depressive disorder, recurrent, unspecified (principal); B20 Human immunodeficiency virus [HIV] disease; R45.851 Suicidal ideations; F15.151 Other stimulant abuse with stimulant-induced psychotic disorder with hallucinations; F90.9 Attention-deficit hyperactivity disorder, unspecified type; G62.9 Polyneuropathy, unspecified; F17.200 Nicotine dependence, unspecified, uncomplicated; Z79.899 Other long term (current) drug therapy; Z81.8 Family history of other mental and behavioral disorders

== ENCOUNTER → 2017-07-20 | Outpatient (CLI) | payer OTHER ==
[~2017-07-20] MED LIST changes: +NICO21DI4 TD; +RSP1 PO
[2017-07-20 09:38] LABS: BASO % 0.4 %; BASO ABS # 0.04 K/uL (0-0.2); COMPLETE YES; EOS % 2.1 %; HEMATOCRIT 49.6 % (42-52); IG% 0.2 %; LYMPH % 24.1 %; LYMPH ABS # 2.74 K/uL (1.2-3.4); MEAN CELL VOLUME 94.8 fL (80-100); MEAN CORPUSCULAR HEMOGLOBIN 31.2 pg (25-34); MEAN CORPUSCULAR HGB CONC 32.9 g/dl (32-36); MEAN PLATELET VOLUME 10.3 fL (7.4-10.4); MONO % 8.1 %; NEUT % 65.1 %; PLATELET COUNT 312 K/uL (130-400); RED BLOOD COUNT 5.23 M/uL (4.7-6.1); WHITE BLOOD COUNT 11.35 K/uL (4.8-10.8)
[2017-07-20 10:29] LABS: ALT/SGPT 67 U/L (12-78); AST/SGOT 42 U/L (15-37); BLOOD UREA NITROGEN 8 mg/dl (7-18); BUN/CREATININE RATIO 7.1 (10-20); CALCIUM 8.5 mg/dl (8.5-10.1); CARBON DIOXIDE 31 mmol/L (21-32); CHLORIDE 105 mmol/L (98-107); GLUCOSE 116 mg/dl (70-99); SODIUM 140 mmol/L (136-145)
[2017-07-20 10:32] LABS: ALB/GLOB RATIO 0.9 (0.9-2); ALKALINE PHOSPHATASE 90 U/L (45-117); CHOLESTEROL 136 mg/dl (0-200); CHOLESTEROL/HDL RATIO 3.5; HDL CHOLESTEROL 39 mg/dl; LDL CHOLESTEROL CALCULATED 67 mg/dl; TRIGLYCERIDES 148 mg/dl (0-150); VERY LOW DENSITY LIPOPROT CALC 30 mg/dl
[2017-07-22 19:31] LABS: LSP % CELLS ANALYZED CD4 44 % (30-61); LSP ABSOLUTE CT CD4 1149 cells/uL (490-1740); LSP LYMPHOCYTES ABSOLUTE 2620 cells/uL (850-3900)
== END | disposition home or self-care (01) ==
LOC: C.LAB1850 08:32
PROVIDERS: ATTEND Internal Medicine Infectious Disease
DX: B20 Human immunodeficiency virus [HIV] disease (principal)

== ENCOUNTER 2017-08-22 08:00 | Emergency (ER) | payer OTHER ==
[~2017-08-22] VITALS: Ht 190.5 cm; Wt 105.6 kg
[2017-08-22 08:05] VITALS: TEMP 36.7; Ht 190.5 cm; Wt 105.6 kg
[2017-08-22] MEDS ORDERED: IBUPROFEN 600 MG TAB PO STA (08:12)
--- NOTE | 2017-08-22 08:18 | EMERGENCY ROOM VISIT NOTE ---
History Report prepared by Amrik: Renee Naidu Under the Supervision of: Dr. Kristin Brown M.D. First contact with patient: 08:09 Chief Complaint: FOOT PAIN Stated Complaint: PAIN,SWELLING,REDNESS IN ARCH L FOOT History of Present Illness The patient is a 57 year old male who presents to the Emergency Room with complaints of persistent left foot pain that began last evening. He currently rates his discomfort as a 5/10 in severity. The patient states that last evening he noticed pain, erythema and edema in his left foot. He denies ever having pain like this in the past. The patient reports increased pain when he touches the area. He states that one month ago he broke a glass in his room, and states that he is unsure if a shard of glass became lodged in the area. The patient denies any history of diabetes. Source of History: patient Onset: last evening Position: foot (left) Symptom Intensity: 5/10 Timing: other (persistent) Modifying Factors (Worsening): other (touching the foot) Review of Systems See HPI for pertinent positives & negatives. A total of 10 systems reviewed and were otherwise negative. Past Medical & Surgical Medical Problems: (1) Depression (2) History of benign orbital tumor (3) HIV (human immunodeficiency virus infection) (4) Methamphetamine abuse (5) Neuropathy (6) overdose, self harm (7) Substance-induced psychotic disorder with hallucinations (8) Suicidal ideation Family History No pertinent family history stated. Social History Smoking Status: Current Every Day Smoker Alcohol Use: occasionally Drug Use: other (methamphetamine) Marital Status: single Housing Status: lives with family Occupation Status: unemployed Current/Historical Medications Scheduled Cephalexin Monohydrate (Keflex), 500 MG PO QID Dolutegravir Sodium (Tivicay), 1 TAB PO DAILY Duloxetine Hcl (Cymbalta), 60 MG PO DAILY Emtricitabine/Temofovir (Truvada 200/300MG), 1 TAB PO DAILY Gabapentin (Neurontin), 2,400 MG PO HS Lisinopril/Hctz (Zestoretic 20MG/25MG), 1 TAB PO DAILY Risperidone (Risperidone), 1 MG PO BID Sulfa/Trimethoprim (Bactrim Ds 800MG/160MG), 1 TAB PO BID Allergies Coded Allergies: Penicillins (Unverified Allergy, Severe, ANAPHYLAXIS, 08/22/17) Physical Exam Vital Signs Date Time Temp Pulse Resp B/P (MAP) Pulse Ox O2 Delivery O2 Flow Rate FiO2 08/22/17 10:13 77 16 154/86 98 08/22/17 10:00 77 16 154/86 98 Room Air 08/22/17 08:05 36.7 88 16 166/107 97 Room Air Physical Exam Vital signs reviewed. General: Well-appearing male, in no significant distress. HEENT: No scleral icterus, PERRLA, neck supple. Atraumatic. Musculoskeletal: Left foot with a 3 cm erythematous tender soft tissue mass, questionable fluctuance to the arch of the foot, no drainage, no open lesion, joint examines within normal limits, no erythematous streaking visualized. Neurologic: Patient awake alert and oriented x 3 Skin: Warm, dry, foot abnormality as described above. Medical Decision & Procedures ER Provider Diagnostic Interpretation: Radiology results as stated below per my review and radiologist interpretation: LEFT FOOT 3 VIEWS CLINICAL HISTORY: Left foot pain and swelling. FINDINGS: 3 views of the left foot are obtained. No prior studies are available for comparison at the time of dictation. The skeletal structures are well mineralized. No fracture is seen. An os trigonum is incidentally noted. There is a large plantar calcaneal enthesophyte. Mild arthritic change is present at the first metatarsophalangeal joint. The overlying soft tissues are within normal limits. Mild soft tissue edema is present along the medial aspect of the midfoot. No radiodense foreign body is seen. IMPRESSION: 1. Medial soft tissue swelling with no acute bony abnormality identified in the left foot. 2. Arthritic change and plantar heel spur as above. Electronically signed by: Jose E Leigh M.D. 08/22/2017 9:03 AM Dictated Date/Time: 08/22/2017 9:02 AM LEFT FOOT SOFT TISSUE ULTRASOUND CLINICAL HISTORY: Soft tissue swelling. Possible abscess. Possible foreign body. COMPARISON STUDY: Conventional radiographic study dated 08/22/2017 FINDINGS: There is a complex mixed echogenicity focus within the medial plantar aspect of the left foot measuring 39 x 28 x 7 mm. Given the clinical history, this could represent early phlegmonous changes. No foreign bodies are visualized ultrasonographically. IMPRESSION: Complex mixed echogenicity focus within the subcutaneous tissues of the medial aspect of the left foot measuring 39 x 20 x 7 mm. Given the clinical history this could represent early phlegmonous change. Electronically signed by: Matthew Ortiz M.D. 08/22/2017 9:24 AM Dictated Date/Time: 08/22/2017 9:22 AM Medications Administered Medications (Trade) Dose Ordered Sig/Rosario Route Start Time Stop Time Status Last Admin Dose Admin Ibuprofen (Motrin Tab) 600 mg NOW STAT PO 08/22/17 08:12 08/22/17 08:15 DC 08/22/17 08:23 600 MG Trimethoprim/ Sulfamethoxazole (Septra Ds 800/ 160MG Tab) 1 tab NOW STAT PO 08/22/17 09:38 08/22/17 09:39 DC 08/22/17 10:07 1 TAB Cephalexin Monohydrate (Keflex Cap) 500 mg NOW ONCE PO 08/22/17 09:45 08/22/17 09:46 DC 08/22/17 10:07 500 MG ED Course 0811: Past medical records reviewed. The patient was evaluated in room A3. A complete history and physical examination was performed. 0812: Ordered Ibuprofen 600 mg PO. 0938: Ordered Trimethoprim Sulfamethoxazole 1 tab PO. 0945: Ordered Keflex Cap 500 mg PO. 0947: I reevaluated the patient and he is resting comfortably. He denies ever injecting drugs into his foot. I discussed the exam findings with him and I discussed the treatment plan. He verbalized complete understanding and agreement. He is ready to go home. Medical Decision Differential diagnosis: Etiologies such as cellulitis, abscess, MRSA infection, DVT, necrotizing fasciitis, dermatitis, drug eruption, as well as others were entertained. This patient was evaluated and appeared to be in no significant distress. Physical exam is consistent with a cellulitis/early abscess to the arch of the left foot. The patient is HIV positive with a history of drug abuse. He denies any injections in this area however the location and etiology are unclear. Ultrasound reveals a likely phlegmon to the arch of the left foot. I suspect this is a cellulitis/early abscess. Patient was placed on Keflex and Bactrim. He was advised to follow-up with Dr. Gregory of infectious disease later this week for reevaluation. He will return to the ER for worsening of symptoms or any medical concerns. Medication Reconcilliation Current Medication List: was personally reviewed by me Impression Primary Impression: Cellulitis of left foot Scribe Attestation The scribe's documentation has been prepared under my direction and personally reviewed by me in its entirety. I confirm that the note above accurately reflects all work, treatment, procedures, and medical decision making performed by me. Departure Information Dispostion Home / Self-Care Prescriptions Sulfa/Trimethoprim (Bactrim Ds 800MG/160MG) Tab 1 TAB PO BID, #14 TAB Prov: Kristin Brown M.D. 08/22/17 Cephalexin Monohydrate (Keflex) 500 Mg Cap 500 MG PO QID, #28 CAP Prov: Kristin Brown M.D. 08/22/17 Referrals No Doctor, Assigned (PCP) René Gregory MD, Paul, M.D. Forms HOME CARE DOCUMENTATION FORM, IMPORTANT VISIT INFORMATION Patient Instructions [facility] Additional Instructions Diagnosis: Left foot cellulitis Bactrim DS 1 tab twice daily for 7 days. Keflex 500 mg four times daily for 7 days. Follow up with Dr Gregory this week for reevaluation. Return to the ED for worsening of symptoms or any medical concerns.
--- NOTE | 2017-08-22 09:05 | DIAGNOSTIC IMAGING REPORT ---
LEFT FOOT 3 VIEWS CLINICAL HISTORY: Left foot pain and swelling. FINDINGS: 3 views of the left foot are obtained. No prior studies are available for comparison at the time of dictation. The skeletal structures are well mineralized. No fracture is seen. An os trigonum is incidentally noted. There is a large plantar calcaneal enthesophyte. Mild arthritic change is present at the first metatarsophalangeal joint. The overlying soft tissues are within normal limits. Mild soft tissue edema is present along the medial aspect of the midfoot. No radiodense foreign body is seen. IMPRESSION: 1. Medial soft tissue swelling with no acute bony abnormality identified in the left foot. 2. Arthritic change and plantar heel spur as above. Electronically signed by: Jose E Leigh M.D. 08/22/2017 9:03 AM Dictated Date/Time: 08/22/2017 9:02 AM
--- NOTE | 2017-08-22 09:26 | DIAGNOSTIC IMAGING REPORT ---
LEFT FOOT SOFT TISSUE ULTRASOUND CLINICAL HISTORY: Soft tissue swelling. Possible abscess. Possible foreign body. COMPARISON STUDY: Conventional radiographic study dated 08/22/2017 FINDINGS: There is a complex mixed echogenicity focus within the medial plantar aspect of the left foot measuring 39 x 28 x 7 mm. Given the clinical history, this could represent early phlegmonous changes. No foreign bodies are visualized ultrasonographically. IMPRESSION: Complex mixed echogenicity focus within the subcutaneous tissues of the medial aspect of the left foot measuring 39 x 20 x 7 mm. Given the clinical history this could represent early phlegmonous change. Electronically signed by: Matthew Ortiz M.D. 08/22/2017 9:24 AM Dictated Date/Time: 08/22/2017 9:22 AM
[2017-08-22] MEDS ORDERED: SULFAMETHOXAZOLE/TRIMETHOPRIM DS 800/160MG TAB PO STA (09:38)
[2017-08-22] MEDS ORDERED: CEPHALEXIN MONOHYDRATE 250 MG CAP PO ONE (09:45)
[2017-08-22] MEDS ORDERED: SULF800T23 PO (10:00)
[2017-08-22] MEDS ORDERED: CEPH500C PO (10:00)
[2017-08-22 10:13] VITALS: BP 154/86; PULSE 77; O2SAT 98
== END 2017-08-22 10:08 | disposition home or self-care (01) ==
LOC: C.EDB 08:01 → C.EDA 10:08
DX: L03.116 Cellulitis of left lower limb (principal); M79.672 Pain in left foot; M77.32 Calcaneal spur, left foot; M13.872 Other specified arthritis, left ankle and foot; F33.9 Major depressive disorder, recurrent, unspecified; B20 Human immunodeficiency virus [HIV] disease; F90.9 Attention-deficit hyperactivity disorder, unspecified type; F17.210 Nicotine dependence, cigarettes, uncomplicated; Z79.899 Other long term (current) drug therapy

== ENCOUNTER → 2017-09-13 | Outpatient (CLI) | payer OTHER ==
[~2017-09-13] MED LIST changes: +CEPH500C PO; +GADAVIST IV PRN; -NICO21DI4 TD; +SULF800T23 PO
--- NOTE | 2017-09-14 16:55 | DIAGNOSTIC IMAGING REPORT ---
MRI OF THE LEFT FOOT WITH AND WITHOUT CONTRAST CLINICAL HISTORY: Possible left foot abscess from foreign body. COMPARISON STUDY: Left foot radiographs and left foot ultrasound August 23, 2017. TECHNIQUE: Utilizing a 1.5 Purvi magnet and dedicated coil, multiplanar, multi echo imaging of the left foot was performed pre and postcontrast administration. Injection of 10 cc of Gadavist IV was uneventful. FINDINGS: A marker was placed on the skin at site of lump. There is a corresponding T1 hypointense, mildly T2 hyperintense subcutaneous focus that measures approximately 2.7 x 0.5 x 1.8 cm. This demonstrates peripheral enhancement. This may contain a trace amount of fluid. There is no large drainable fluid collection. This overlies the plantar aspect of the abductor hallucis tendon. A small amount of fluid is noted within the tendon sheath more distally without significant enhancement. There is no evidence for osteomyelitis. Mild arthritis is noted within several articulations of the right foot. There is mild marrow edema within the second metatarsal base. This is likely degenerative. Flexor, extensor and peroneal tendons are intact. There is apparent mild muscular edema within the flexor muscles of the right foot at the level of the metatarsals. There is no associated fluid collection or abnormal enhancement. This is of questionable significance. IMPRESSION: 1. Small 2.7 x 0.5 x 1.8 cm subcutaneous focus within the medial plantar soft tissues of the left foot which corresponds to the finding shown on prior ultrasound. This favors a phlegmon with no drainable component. 2. No evidence for osteomyelitis within the left foot. 3. Small amount of fluid within the abductor pollicis tendon sheath without associated enhancement. This may be reactive. Infectious tenosynovitis could appear similar although is considered somewhat less likely. Electronically signed by: Ludwin Pichardo M.D. 09/14/2017 4:54 PM Dictated Date/Time: 09/13/2017 8:18 PM
== END | disposition home or self-care (01) ==
LOC: C.MRI 18:31
PROVIDERS: ATTEND Internal Medicine Infectious Disease
DX: L02.612 Cutaneous abscess of left foot (principal)

== ENCOUNTER 2017-10-24 23:51 | Emergency (ER) | payer OTHER ==
[~2017-10-24] VITALS: Ht 190.5 cm; Wt 100.0 kg
[~2017-10-24 23:51] MED LIST changes: -DOLU1TAB PO; -GABA800T PO; -GADAVIST IV PRN; -TRVHP PO
[2017-10-24 23:55] VITALS: TEMP 36.6; Ht 190.5 cm; Wt 100.0 kg
[2017-10-24] MEDS ORDERED: CEFTRIAXONE SOD INJ 1 GM ADDVIAL IV STA (23:59)
[2017-10-24] MEDS ORDERED: KETOROLAC TROMETHAMINE 30 MG/ML VIAL IV STA (23:59)
[2017-10-25] MEDS ORDERED: VANCOMYCIN IV 2,500 MG in SODIUM CHLORIDE 0.9% 500ML 500 ML IV STA (00:57)
[2017-10-25] MEDS ORDERED: LVT/20 PO (01:10)
[2017-10-25 01:13] LABS: BASO % 0.2 %; BASO ABS # 0.03 K/uL (0-0.2); EOS % 1.1 %; EOS ABS # 0.15 K/uL (0-0.5); HEMOGLOBIN 17.3 g/dL (14.0-18.0); IG# 0.05 K/uL (0.00-0.02); LYMPH ABS # 1.95 K/uL (1.2-3.4); MEAN CELL VOLUME 88.7 fL (80-100); MEAN PLATELET VOLUME 9.9 fL (7.4-10.4); MONO % 14.1 %; MONO ABS # 1.97 K/uL (0.11-0.59); NEUT % 70.2 %; NEUT ABS # 9.81 K/uL (1.4-6.5); PLATELET COUNT 265 K/uL (130-400); RED CELL DISTRIBUTION WIDTH SD 41.6 fL (36.4-46.3); WHITE BLOOD COUNT 13.96 K/uL (4.8-10.8)
[2017-10-25 01:34] LABS: ALBUMIN 3.1 gm/dl (3.4-5.0); CALCIUM 8.4 mg/dl (8.5-10.1); CREATININE 1.3 mg/dl (0.60-1.40); POTASSIUM 3.7 mmol/L (3.5-5.1)
[2017-10-25 01:36] LABS: TOTAL PROTEIN 6.5 gm/dl (6.4-8.2)
[2017-10-25] MEDS ORDERED: MoRPHine SULFATE 4 MG/ML 1 ML CARP\\VIAL IV STA (01:37)
[2017-10-25] MEDS ORDERED: OPTIRAY 320 IV PRN (02:00)
[2017-10-25] MEDS ORDERED: FENTANYL CITRATE INJ 50 MCG/1 ML 2 ML VIAL IV STA (04:21)
--- NOTE | 2017-10-25 04:21 | EMERGENCY ROOM VISIT NOTE ---
History First contact with patient: 23:53 Chief Complaint: FOOT PAIN Stated Complaint: FOOT PAIN History of Present Illness The patient is a 57 year old male who presents to the Emergency Room with complaints of right foot pain and swelling for the past day that is steadily getting worse. He described the pain as throbbing, ranging in severity 7 out of 10 worse with palpation and better with rest. No injury to the area. No IV drug use. Patient has a history of infection of this foot. He was on Keflex and Bactrim a few months ago. He follows with Dr. Gregory. CD4 count is 1200 per patient. Patient denies fever, chills, chest pain, dyspnea, cough, congestion, numbness or tingling. Review of Systems See HPI for pertinent positives & negatives. A total of 10 systems reviewed and were otherwise negative. Past Medical/Surgical History Medical Problems: (1) Depression (2) History of benign orbital tumor (3) HIV (human immunodeficiency virus infection) (4) Methamphetamine abuse (5) Neuropathy (6) overdose, self harm (7) Substance-induced psychotic disorder with hallucinations (8) Suicidal ideation Social History Smoking Status: Current Every Day Smoker Alcohol Use: occasionally Drug Use: other Marital Status: single Housing Status: lives with family Occupation Status: unemployed Current/Historical Medications Scheduled Dolutegravir Sodium (Tivicay), 1 TAB PO DAILY Duloxetine Hcl (Cymbalta), 60 MG PO DAILY Emtricitabine/Temofovir (Truvada 200/300MG), 1 TAB PO DAILY Gabapentin (Neurontin), 2,400 MG PO HS Lisinopril/Hctz (Zestoretic 20MG/25MG), 1 TAB PO DAILY Risperidone (Risperidone), 1 MG PO QAM Risperidone (Risperidone), 2 MG PO HS Scheduled PRN Vardenafil (Levitra), 20 MG PO DIRECTED PRN for PRN Physical Exam Vital Signs Date Time Temp Pulse Resp B/P (MAP) Pulse Ox O2 Delivery O2 Flow Rate FiO2 10/25/17 02:51 90 16 145/78 98 Room Air 10/25/17 01:48 86 20 127/82 98 Room Air 10/24/17 23:55 36.6 101 20 111/83 100 Room Air Physical Exam VITALS: Vitals are noted on the nurse's note and reviewed by myself. Vital signs stable. GENERAL: Pleasant male, in no acute distress, nondiaphoretic, well-developed well-nourished. SKIN: The skin was without rashes, edema, or bruising. There is no tenting of the skin. Capillary reflex less than 2 seconds. HEAD: Normocephalic atraumatic. EARS: External auditory canals clear EYES: Pupils equal round and reactive to light and accommodation. Conjunctivae without injection, sclerae without icterus. Extraocular movements intact. NOSE: Patent, turbinates without inflammation or discharge. MOUTH: Mucous membranes moist. Pharynx without erythema or exudate. Uvula midline. Airway patent. Tongue does not deviate. NECK: Supple without nuchal rigidity. No lymphadenopathy. No thyromegaly. Cervical spine is nontender. No JVD. HEART: Regular rate and rhythm LUNGS: Clear to auscultation bilaterally without wheezes, rales or rhonchi. No dullness to percussion. No retractions or accessory muscle use. ABDOMEN: Positive bowel sounds x 4. Normal tympanic percussion. Soft, nontender, without masses or organomegaly. Hood sign negative. No guarding or rebound tenderness. MUSCULOSKELETAL: No muscle atrophy, or edema noted. Right foot erythematous and warm to touch concerning for cellulitis. Pedal pulses +2 equal present bilaterally. NEURO: Patient was alert and oriented to person place and time. Normal sensation to light and sharp touch. No focal neurological deficits. Medical Decision & Procedures Laboratory Results 10/25/17 00:35 Red Blood Count 5.41, Mean Corpuscular Volume 88.7, Mean Corpuscular Hemoglobin 32.0, Mean Corpuscular Hemoglobin Concent 36.0, Mean Platelet Volume 9.9, Neutrophils (%) (Auto) 70.2, Lymphocytes (%) (Auto) 14.0, Monocytes (%) (Auto) 14.1, Eosinophils (%) (Auto) 1.1, Basophils (%) (Auto) 0.2, Neutrophils # (Auto ) 9.81, Lymphocytes # (Auto) 1.95, Monocytes # (Auto) 1.97, Eosinophils # (Auto ) 0.15, Basophils # (Auto) 0.03 10/25/17 00:35 Test 10/25/17 00:35 10/25/17 00:40 White Blood Count 13.96 K/uL (4.8-10.8) Red Blood Count 5.41 M/uL (4.7-6.1) Hemoglobin 17.3 g/dL (14.0-18.0) Hematocrit 48.0 % (42-52) Mean Corpuscular Volume 88.7 fL (80-100) Mean Corpuscular Hemoglobin 32.0 pg (25-34) Mean Corpuscular Hemoglobin Concent 36.0 g/dl (32-36) Platelet Count 265 K/uL (130-400) Mean Platelet Volume 9.9 fL (7.4-10.4) Neutrophils (%) (Auto) 70.2 % Lymphocytes (%) (Auto) 14.0 % Monocytes (%) (Auto) 14.1 % Eosinophils (%) (Auto) 1.1 % Basophils (%) (Auto) 0.2 % Neutrophils # (Auto) 9.81 K/uL (1.4-6.5) Lymphocytes # (Auto) 1.95 K/uL (1.2-3.4) Monocytes # (Auto) 1.97 K/uL (0.11-0.59) Eosinophils # (Auto) 0.15 K/uL (0-0.5) Basophils # (Auto) 0.03 K/uL (0-0.2) RDW Standard Deviation 41.6 fL (36.4-46.3) RDW Coefficient of Variation 13.0 % (11.5-14.5) Immature Granulocyte % (Auto) 0.4 % Immature Granulocyte # (Auto) 0.05 K/uL (0.00-0.02) Anion Gap 6.0 mmol/L (3-11) Est Creatinine Clear Calc Drug Dose 76.7 ml/min Estimated GFR () 71.2 Estimated GFR (Non- 61.4 BUN/Creatinine Ratio 19.8 (10-20) Calcium Level 8.4 mg/dl (8.5-10.1) Total Bilirubin 0.3 mg/dl (0.2-1) Direct Bilirubin 0.1 mg/dl (0-0.2) Aspartate Amino Transf (AST/SGOT) 33 U/L (15-37) Alanine Aminotransferase (ALT/SGPT) 43 U/L (12-78) Alkaline Phosphatase 99 U/L (45-117) Total Protein 6.5 gm/dl (6.4-8.2) Albumin 3.1 gm/dl (3.4-5.0) Bedside Lactic Acid Venous 2.12 mmol/L (0.90-1.70) Medications Administered Medications (Trade) Dose Ordered Sig/Rosario Route Start Time Stop Time Status Last Admin Dose Admin Ceftriaxone Sodium (Rocephin Inj) 1 gm NOW STAT IV 10/24/17 23:59 10/25/17 00:01 DC 10/25/17 00:48 1 GM Ketorolac Tromethamine (Toradol Inj) 30 mg NOW STAT IV 10/24/17 23:59 10/25/17 00:02 DC 10/25/17 00:48 30 MG Vancomycin HCl 2500 mg/Sodium Chloride 550 ml @ 0 mls/hr ONE STAT IV 10/25/17 00:57 10/25/17 00:58 DC 10/25/17 01:32 0 MLS/HR Morphine Sulfate (MoRPHine SULFATE INJ) 4 mg NOW STAT IV 10/25/17 01:37 10/25/17 01:39 DC 10/25/17 01:47 4 MG ED Course Prior records reviewed and summarized as above. Triage Nursing notes reviewed. Additional history obtained from EMS. The patient's history was concerning for swelling and redness of the skin. Differential diagnosis: Etiologies such as cellulitis, abscess, MRSA infection, DVT, necrotizing fasciitis, dermatitis, drug eruption, as well as others were entertained.. Physical examination: The physical examination was consistent with cellulitis ER treatment provided: Morphine, Rocephin, vancomycin Patient's CD4 count was 1149 07/10 On reassessment the patient felt better. Diagnostics interpreted by me: The labs revealed leukocytosis. Elevated lactic acid Imaging studies: CT RIGHT FOOT: No soft tissue abscess identified. Fat stranding in the plantar aspect of the right heel, most prominent medially. Fat stranding also seen along the plantar forefoot which may represent physiologic dependent edema. Superimposed infection is not excluded. Lucency in the medial talar dome with surrounding sclerosis and probable subchondral cysts may represent an osteochondral lesion. Smaller lucencies in the lateral talar dome with associated surrounding sclerosis may represent degenerative subchondral cysts. Nonspecific sclerosis and small amount of lucency in the mid calcaneus. Plantar posterior degenerative calcaneal spurs. Probable punctate bone island in the base of the right fourth metatarsal. No definite evidence of osteomyelitis. Radiologist: Mayco Ledesma M.D. Ultrasound negative for DVT CLINICAL HISTORY: Possible left foot abscess from foreign body. COMPARISON STUDY: Left foot radiographs and left foot ultrasound August 23, 2017. TECHNIQUE: Utilizing a 1.5 Purvi magnet and dedicated coil, multiplanar, multi echo imaging of the left foot was performed pre and postcontrast administration. Injection of 10 cc of Gadavist IV was uneventful. FINDINGS: A marker was placed on the skin at site of lump. There is a corresponding T1 hypointense, mildly T2 hyperintense subcutaneous focus that measures approximately 2.7 x 0.5 x 1.8 cm. This demonstrates peripheral enhancement. This may contain a trace amount of fluid. There is no large drainable fluid collection. This overlies the plantar aspect of the abductor hallucis tendon. A small amount of fluid is noted within the tendon sheath more distally without significant enhancement. There is no evidence for osteomyelitis. Mild arthritis is noted within several articulations of the right foot. There is mild marrow edema within the second metatarsal base. This is likely degenerative. Flexor, extensor and peroneal tendons are intact. There is apparent mild muscular edema within the flexor muscles of the right foot at the level of the metatarsals. There is no associated fluid collection or abnormal enhancement. This is of questionable significance. IMPRESSION: 1. Small 2.7 x 0.5 x 1.8 cm subcutaneous focus within the medial plantar soft tissues of the left foot which corresponds to the finding shown on prior ultrasound. This favors a phlegmon with no drainable component. 2. No evidence for osteomyelitis within the left foot. 3. Small amount of fluid within the abductor pollicis tendon sheath without associated enhancement. This may be reactive. Infectious tenosynovitis could appear similar although is considered somewhat less likely. Electronically signed by: Ludwin Pichardo M.D. 09/14/2017 4:54 PM Dictated Date/Time: 09/13/2017 8:18 PM Consultation: A consultation was placed with the Dr. Raymundo Maldonado hospitalist. The case was discussed and diagnostics were reviewed. The patient was evaluated in the ER for further treatment. He feels the patient can be safely discharged home on oral antibiotics. This appears to be right lower leg cellulitis. CT concerning for infection. Patient had an elevated lactic acid and white blood count. He is HIV positive with a CD4 of 1149 back in June. He was still moderate amount of discomfort. He will be evaluated for possible admission by medicine. He was neurovascularly and neurologically intact. No signs of osteomyelitis. Patient is advised to follow tomorrow with his family care doctor or his infectious disease doctor within the day or 2 for reevaluation or here in the ER sooner for spreading infection, fevers, vomiting, worsening signs or symptoms or as needed. By the evaluation outlined above emergent etiologies such as abscess, necrotizing fasciitis, DVT, as well as others were deemed relatively unlikely. The pt informed about the findings as listed above. All questions were answered and pleased with the treatment. Case reviewed with my attending. The chart was completed utilizing [employer] Speech voice recognition software. Grammatical errors, random word insertions, pronoun errors, and incomplete sentences are an occassional consequence of this system due to software limitations, ambient noise, and hardware issues. Any formal questions or concerns about the content, text, or information contained within the body of this dictation should be directly addressed to the physician surveyor's assistant for clarification. Patient was discharged home with close follow-up family care. Medical Decision As above Medication Reconcilliation Current Medication List: was personally reviewed by me Blood Pressure Screening Patient's blood pressure: Normal blood pressure Impression Primary Impression: Cellulitis of right lower leg Departure Information Dispostion Home / Self-Care Condition GOOD Referrals No Doctor, Assigned (PCP) Patient Instructions My [facility] Additional Instructions Cephalexin(Keflex) 500mg: Take one pill four times daily for 10 days for your skin infection. All antibiotics can cause diarrhea. If this occurs and you feel worse or it does not resolve in 1-2 days follow up with your doctor or return to the Emergency Department as this could be signs of serious underlying problems. Any medication can cause an allergic reaction, stop the pills immediately and return to the ER for rash, hives, breathing difficulties, or swelling. Trimethoprim-Sulfamethoxazole(Bactrim DS): Take one pill twice daily for 10 days for your skin infection. All antibiotics can cause diarrhea. If this occurs and you feel worse or it does not resolve in 1-2 days follow up with your doctor or return to the Emergency Department as this could be signs of serious underlying problems. Any medication can cause an allergic reaction, stop the pills immediately and return to the ER for rash, hives, breathing difficulties, or swelling. Ibuprofen(Motrin, Advil) may be used for fever or pain. Use 600mg every six hours as needed. Take with food. Avoid using more than 2400mg in a 24 hour period. Do not use 2400mg per day for more than three consecutive days without physician direction. Prolonged inappropriate use can lead to stomach upset or ulcers. (AND/OR) Acetaminophen(Tylenol) may be used for fever or pain. Use 1000mg every six hours as needed. Avoid using more than 4000mg in a 24 hour period. Warm compresses to the affected area 4 times daily for 15-20 minutes. Rest and drink plenty of fluids. Continue current medications. Return to the ER for severe pain, persistent fevers, spreading redness, or any worsening of your condition. Follow up with your primary physician or Dr Gregory within 2-3 days for a recheck of the current condition.
[2017-10-25] MEDS ORDERED: CEPH500C2 PO (04:23)
[2017-10-25] MEDS ORDERED: SULF800T23 PO (04:23)
[2017-10-25] MEDS ORDERED: OXYCODONE IR HOME PACK PO ONE (04:30)
[2017-10-25] MEDS ORDERED: SEPTRA DS HOME PACK 1 EA VIAL PO ONE (04:30)
[2017-10-25] MEDS ORDERED: CEPHALEXIN 500MG HOME PACK 1 EA BTL PO ONE (04:30)
[2017-10-25 05:17] VITALS: BP 148/84; PULSE 82; O2SAT 96
--- NOTE | 2017-10-25 06:26 | DIAGNOSTIC IMAGING REPORT ---
ULTRASOUND R VENOUS DOPP LOWER EXT UNILAT CLINICAL HISTORY: Right leg pain and swelling COMPARISON STUDY: No previous studies for comparison. FINDINGS: Real-time and color flow Doppler imaging were performed. Flow was seen within the femoral, popliteal and calf veins with no intraluminal thrombus demonstrated. The saphenous vein is patent. IMPRESSION: No evidence of right lower extremity DVT. Electronically signed by: Matthew Ortiz M.D. 10/25/2017 6:25 AM Dictated Date/Time: 10/25/2017 6:25 AM
--- NOTE | 2017-10-25 07:49 | DIAGNOSTIC IMAGING REPORT ---
R LOWER EXTREMITY WITH CLINICAL HISTORY: 57 years-old Male presenting with right foot infx, ? abscess. TECHNIQUE: Multidetector CT of the right foot was performed after the administration of intravenous contrast. IV contrast: 92 mL of Optiray 320. A dose lowering technique was used consistent with the principles of ALARA (as low as reasonably achievable). COMPARISON: None. CT DOSE (mGy.cm): The estimated cumulative dose is 169.83 mGy.cm. 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 No evidence of osteolysis or periosteal reaction to suggest osteomyelitis. Extensive subcutaneous fat infiltration primarily in the hindfoot, nonspecific. No rim-enhancing fluid collection to suggest abscess. Focal subchondral defect at the medial talar dome with subjacent sclerosis and cystic change, consistent with a chronic osteochondral lesion. Cystic change in the lateral talar dome likely degenerative in etiology. No other significant degenerative change. Heterogeneity of bone marrow within the calcaneus likely indicates osteopenia. Similar findings noted in the talus. No acute fracture or malalignment. Calcification within the distal Achilles tendon likely indicates prior injury or chronic degeneration. No significant ankle joint effusion. Vessels patent. Mild diffuse fatty atrophy of the musculature. IMPRESSION: 1. No evidence of osteolysis or periosteal reaction to suggest osteomyelitis. 2. No evidence of abscess. 3. Nonspecific subcutaneous edema primarily in the hindfoot. Correlate clinically to exclude cellulitis. 4. Chronic osteochondral lesion in the medial talar dome. Degenerative changes at the ankle mortise. Electronically signed by: Pola Stephens M.D. 10/25/2017 7:48 AM Dictated Date/Time: 10/25/2017 6:49 AM
[2017-11-04] MEDS ORDERED: SULF800T23 PO (13:39)
[2017-11-04] MEDS ORDERED: CEPH500C PO (13:39)
[2018-03-14] MEDS ORDERED: SILD1TAB39 PO (10:21)
[2018-04-19] MEDS ORDERED: RXC5 PO (20:09)
[2018-04-19] MEDS ORDERED: ASPI-461 PO (20:09)
[2018-04-19] MEDS ORDERED: ACET-24 PO (20:09)
[2018-04-26] MEDS ORDERED: RSP1 PO ×2 (01:10)
[2018-04-26] MEDS ORDERED: TRVHP PO (06:31)
[2018-04-26] MEDS ORDERED: DOLU1TAB PO (06:32)
[2018-04-26] MEDS ORDERED: BENZ-89 PO (10:24)
[2018-04-26] MEDS ORDERED: GABA800T PO (11:16)
[2018-04-26] MEDS ORDERED: HYDR25TA4 PO (20:30)
[2018-04-26] MEDS ORDERED: SENN8.6T36 PO (20:30)
[2018-04-26] MEDS ORDERED: ASPI81TA28 PO (20:30)
[2018-04-26] MEDS ORDERED: CYM/30 PO (20:30)
[2018-04-26] MEDS ORDERED: DOCU100C31 PO (20:30)
[2018-04-26] MEDS ORDERED: CEPH500C2 PO (20:30)
[2018-04-26] MEDS ORDERED: LDDP5 TOP (20:43)
[2018-04-26] MEDS ORDERED: NICO1DIS9 TOP (20:43)
[2018-04-26] MEDS ORDERED: LISI-725 PO (20:43)
[2018-04-26] MEDS ORDERED: ACET-1311 PO (20:53)
[2018-04-26] MEDS ORDERED: OXYC-609 PO (20:58)
[2018-04-26] MEDS ORDERED: MOML PO (21:01)
[2018-04-26] MEDS ORDERED: BISA10SU5 PR (21:01)
[2018-04-26] MEDS ORDERED: HYDR-3419 PO (21:03)
[2018-04-27] MEDS ORDERED: ASPEC325 PO (07:48)
[2018-04-27] MEDS ORDERED: ACET-24 PO (07:48)
[2018-04-27] MEDS ORDERED: MTR800 PO (07:48)
[2018-04-27] MEDS ORDERED: HYDR2TAB48 PO (07:48)
[2018-05-05] MEDS ORDERED: SULF800T23 PO (15:07)
[2018-05-05] MEDS ORDERED: HYDR2TAB48 PO (17:29)
== END 2017-10-25 05:18 | disposition home or self-care (01) ==
LOC: EDUNIT# 23:51 → C.EDB 23:52
DX: L03.115 Cellulitis of right lower limb (principal); F32.9 Major depressive disorder, single episode, unspecified; B20 Human immunodeficiency virus [HIV] disease; F15.20 Other stimulant dependence, uncomplicated; G62.9 Polyneuropathy, unspecified; F19.951 Other psychoactive substance use, unspecified with psychoactive substance-induced psychotic disorder with hallucinations; F17.200 Nicotine dependence, unspecified, uncomplicated; R74.0 Nonspecific elevation of levels of transaminase and lactic acid dehydrogenase [LDH]

== ENCOUNTER → 2017-11-23 | Outpatient (CLI) | payer OTHER ==
[~2017-11-23] MED LIST changes: -CEPH500C PO; +DOLU1TAB PO; +GABA800T PO; +LVT/20 PO; -SULF800T23 PO; +TRVHP PO
[2017-11-23 10:17] LABS: BASO % 0.3 %; BASO ABS # 0.06 K/uL (0-0.2); EOS % 1.1 %; EOS ABS # 0.21 K/uL (0-0.5); HEMATOCRIT 53.1 % (42-52); HEMOGLOBIN 17.9 g/dL (14.0-18.0); IG# 0.09 K/uL (0.00-0.02); LYMPH ABS # 3.32 K/uL (1.2-3.4); MEAN CORPUSCULAR HEMOGLOBIN 31.7 pg (25-34); MEAN CORPUSCULAR HGB CONC 33.7 g/dl (32-36); MEAN PLATELET VOLUME 9.9 fL (7.4-10.4); MONO % 7.7 %; MONO ABS # 1.41 K/uL (0.11-0.59); NEUT % 72.4 %; NEUT ABS # 13.33 K/uL (1.4-6.5); PLATELET COUNT 329 K/uL (130-400); RED CELL DISTRIBUTION WIDTH CV 13.8 % (11.5-14.5); RED CELL DISTRIBUTION WIDTH SD 46.7 fL (36.4-46.3); WHITE BLOOD COUNT 18.42 K/uL (4.8-10.8)
[2017-11-23 10:24] LABS: HEMOGLOBIN A1C 5.9 % (4.5-5.6)
[2017-11-23 12:41] LABS: ALBUMIN 3.5 gm/dl (3.4-5.0); ALT/SGPT 51 U/L (12-78); BLOOD UREA NITROGEN 7 mg/dl (7-18); CALCIUM 9.1 mg/dl (8.5-10.1); CARBON DIOXIDE 29 mmol/L (21-32); CHOLESTEROL 141 mg/dl (0-200); CREATININE 1.26 mg/dl (0.60-1.40); GLUCOSE 114 mg/dl (70-99); POTASSIUM 4.3 mmol/L (3.5-5.1); SODIUM 137 mmol/L (136-145)
[2017-11-23 12:50] LABS: ALKALINE PHOSPHATASE 102 U/L (45-117); AST/SGOT 26 U/L (15-37); LDL CHOLESTEROL CALCULATED 69 mg/dl; TOTAL PROTEIN 7.8 gm/dl (6.4-8.2)
[2017-11-30 10:38] LABS: LSP % CELLS ANALYZED CD4 35 % (30-61); LSP ABSOLUTE CT CD4 1161 cells/uL (490-1740)
== END | disposition home or self-care (01) ==
LOC: C.LAB1850 09:17
PROVIDERS: ATTEND Internal Medicine Infectious Disease
DX: Z79.899 Other long term (current) drug therapy (principal); B20 Human immunodeficiency virus [HIV] disease

== ENCOUNTER → 2017-11-28 | Outpatient (CLI) | payer OTHER ==
[2017-11-28 13:31] LABS: BASO % 0.3 %; BASO ABS # 0.04 K/uL (0-0.2); EOS % 1.5 %; EOS ABS # 0.22 K/uL (0-0.5); HEMOGLOBIN 16.7 g/dL (14.0-18.0); IG# 0.08 K/uL (0.00-0.02); LYMPH % 18.4 %; LYMPH ABS # 2.73 K/uL (1.2-3.4); MEAN CELL VOLUME 92.9 fL (80-100); MEAN CORPUSCULAR HGB CONC 33.4 g/dl (32-36); MONO % 5.9 %; MONO ABS # 0.87 K/uL (0.11-0.59); NEUT % 73.4 %; NEUT ABS # 10.86 K/uL (1.4-6.5); PLATELET COUNT 292 K/uL (130-400)
[2017-11-28 14:12] LABS: ALBUMIN 3.3 gm/dl (3.4-5.0); ALT/SGPT 42 U/L (12-78); AST/SGOT 25 U/L (15-37); BLOOD UREA NITROGEN 10 mg/dl (7-18); CALCIUM 8.7 mg/dl (8.5-10.1); CARBON DIOXIDE 29 mmol/L (21-32); CREATININE 1.12 mg/dl (0.60-1.40); GLUCOSE 140 mg/dl (70-99); POTASSIUM 4.1 mmol/L (3.5-5.1); SODIUM 136 mmol/L (136-145)
[2017-11-28 14:15] LABS: ALKALINE PHOSPHATASE 104 U/L (45-117); TOTAL PROTEIN 7.3 gm/dl (6.4-8.2)
--- NOTE | 2017-12-09 10:46 | CODING QUERY NO DIAGNOSIS ---
: 1960 TREATMENT RENDERED WITHOUT A DIAGNOSIS To promote full compliance with coding requirements relating to patient care, physician participation is requested in all cases of accounting file clerk uncertainty. Please assist us with providing a diagnosis/symptom for the test(s) below: A diagnosis/symptom was not documented on your Order. A valid diagnosis/symptom is required to bill all insurances. Please remember that we are unable to code a diagnosis of rule out, probable, possible, questionable, or suspected. Tests that require a diagnosis: DOS: 11/28/17 (weekly labs per order) * CBC w/ Diff DIAGNOSIS: * CMP DIAGNOSIS: * ESR DIAGNOSIS: Provider Signature: Date: Thank you Tianna Jose Health Information Management Once completed, please kindly fax back to [phone] For questions please call [phone]
== END | disposition home or self-care (01) ==
LOC: C.LABSPEC 12:26
PROVIDERS: ATTEND Internal Medicine Infectious Disease
DX: L03.115 Cellulitis of right lower limb (principal)

== ENCOUNTER 2018-03-10 15:46 | Emergency (ER) | payer OTHER ==
[~2018-03-10] VITALS: Ht 190.5 cm; Wt 104.7 kg
[2018-03-10 15:50] VITALS: Ht 190.5 cm; Wt 104.7 kg
[2018-03-10] MEDS ORDERED: CEFTRIAXONE SOD 350MG/ML 1 GM VIAL IM ONE (16:15)
[2018-03-10] MEDS ORDERED: AZITHROMYCIN 250 MG TAB PO ONE (16:15)
[2018-03-10 16:44] VITALS: BP 152/92; PULSE 95; TEMP 37; O2SAT 96
--- NOTE | 2018-03-10 21:21 | EMERGENCY ROOM VISIT NOTE ---
History First contact with patient: 15:54 Chief Complaint: STD MALE Stated Complaint: POSS GONORRHEA Nursing Triage Summary: patient c/o penile discharge and painful urination. "I think I have gonarrhea." History of Present Illness The patient is a 58 year old male who presents to the Emergency Room with complaints of urethral drainage and discharge that began about 7 days ago. The patient states his symptoms were initially minimal but have worsened over the past 2 or 3 days. The patient has had recent unprotected intercourse and is concerned for possible gonorrhea or chlamydial infection. Patient is HIV positive, but states that his viral load is undetectable and his CD4 count is greater than 1200. The patient has not had fever, chills, chest pain, abdominal pain, or testicle pain. He rates his current discomfort a 1/10. He has not taken anything [id number] for his symptoms. Review of Systems More than 10 systems were reviewed and otherwise negative with the exception of history of present illness. Past Medical/Surgical History Medical Problems: (1) Depression (2) History of benign orbital tumor (3) HIV (human immunodeficiency virus infection) (4) Methamphetamine abuse (5) Neuropathy (6) overdose, self harm (7) Substance-induced psychotic disorder with hallucinations (8) Suicidal ideation Social History Smoking Status: Never Smoker Alcohol Use: occasionally Drug Use: other Marital Status: single Housing Status: lives with family Occupation Status: unemployed Current/Historical Medications Scheduled Dolutegravir Sodium (Tivicay), 1 TAB PO DAILY Duloxetine Hcl (Cymbalta), 60 MG PO DAILY Emtricitabine/Temofovir (Truvada 200/300MG), 1 TAB PO DAILY Gabapentin (Neurontin), 2,400 MG PO HS Lisinopril/Hctz (Zestoretic 20MG/25MG), 1 TAB PO DAILY Risperidone (Risperidone), 1 MG PO QAM Risperidone (Risperidone), 2 MG PO HS Scheduled PRN Vardenafil (Levitra), 20 MG PO DIRECTED PRN for PRN Physical Exam Vital Signs Date Time Temp Pulse Resp B/P (MAP) Pulse Ox O2 Delivery O2 Flow Rate FiO2 03/10/18 16:44 37.0 95 18 152/92 96 03/10/18 15:50 37.0 103 18 152/92 96 Room Air Physical Exam VITALS: Vitals are noted on the nurse's note and reviewed by myself. Vital signs stable. GENERAL: Well-developed, well-nourished, white male, who is in no acute distress and resting comfortably. Patient is cooperative with the examination. HEART: Regular rate and rhythm without murmurs gallops or rubs. LUNGS: Clear to auscultation bilaterally without wheezes, rales or rhonchi. No retractions or accessory muscle use. ABDOMEN: Positive normal bowel sounds x 4. Soft, nontender, without masses or organomegaly. No guarding or rebound tenderness. : Circumcised phallus with dried drainage at the urethral meatus. No obvious lesions on the glans or shaft. No testicle tenderness. No obvious urethral drainage or discharge. No hernia. Medical Decision & Procedures Laboratory Results Test 03/10/18 00:00 Medications Administered Medications (Trade) Dose Ordered Sig/Rosario Route Start Time Stop Time Status Last Admin Dose Admin Ceftriaxone Sodium (Rocephin Im) 1,000 mg NOW ONCE IM 03/10/18 16:15 03/10/18 16:16 DC 03/10/18 16:34 1,000 MG Azithromycin (Zithromax Tab) 1,000 mg NOW ONCE PO 03/10/18 16:15 03/10/18 16:16 DC 03/10/18 16:35 1,000 MG ED Course Physical exam and history were performed. Nursing notes, EMR, and Medication List were personally reviewed. Patient appears to have urethral drainage or discharge for the past several days. He is HIV positive, however this seems to be well-controlled with his normal medications. A swab was performed and sent to the lab with results pending. Based on his history and after discussing options of care with the pharmacist, I elected to give the patient 1 g IM Rocephin and 1 g oral Zithromax. I do recommend the patient follow with his primary care physician for further care management. He may be a good candidate for a test of cure after treatment. He was educated to monitor for worsening symptoms and come back to the ER with any new, worsening, or concerning symptoms. The chart was completed utilizing [employer] Voice Recognition Software. Grammatical errors, random word insertions, pronoun errors, and incomplete sentences are an occasional consequence of this system due to software limitations, ambient noise, and hardware issues. Any formal questions or concerns about the content, text, or information contained within the body of this dictation should be directly addressed to the provider for clarification. . Medical Decision Differential diagnosis includes, but is not limited to: Gonorrhea, chlamydia infection, STI, urinary tract infection, and others Impression Primary Impression: Urethral discharge in male Departure Information Dispostion Home / Self-Care Condition GOOD Forms HOME CARE DOCUMENTATION FORM, IMPORTANT VISIT INFORMATION Patient Instructions My [facility] Additional Instructions You were seen and evaluated today on an emergency basis only. This is not a substitute for, or an effort to provide, complete comprehensive medical care. It is not possible to recognize and treat all injuries or illnesses in a single emergency department visit. For this reason it is recommended that you followup with your primary care physician next week for a recheck. Your results should be available in 3-4 days. You are welcome to return to the emergency department anytime with new, worsening, or concerning symptoms.
[2018-03-14] MEDS ORDERED: SILD1TAB39 PO (10:21)
[2018-03-14] MEDS ORDERED: BENZ-89 PO (10:24)
== END 2018-03-10 16:45 | disposition home or self-care (01) ==
LOC: C.EDB 15:48 → C.EDD 16:45
DX: R36.9 Urethral discharge, unspecified (principal); Z21 Asymptomatic human immunodeficiency virus [HIV] infection status; F32.9 Major depressive disorder, single episode, unspecified; F19.90 Other psychoactive substance use, unspecified, uncomplicated; G62.9 Polyneuropathy, unspecified; Z79.899 Other long term (current) drug therapy

== ENCOUNTER 2019-06-15 09:04 | Inpatient (IN) ==
--- NOTE | 2019-05-09 11:06 | PAT Medication Instructions ---
Medication Instructions Date of Service May 09, 2019 Home Medications Medication Instructions Recorded oxycodone-acetaminophen [Percocet] 1 - 2 tab PO Q4H PRN #6 tab 11/03/18 lisinopril 20 1 tab PO HS #90 tab 05/03/19 mg-hydrochlorothiazide 25 mg tablet amlodipine 2.5 mg tablet 2.5 mg PO QPM #30 tab 05/04/19 tadalafil 20 mg tablet 20 mg PO .COMPLEX #10 tab 05/04/19 Truvada 1 tab PO HS duloxetine [Cymbalta] 60 mg PO HS gabapentin 3 tab PO HS risperidone 1 dose PO QPM sulfamethoxazole-trimethoprim [Bactrim DS] 1 tab PO BID trazodone 1 - 2 tab PO HS PRN oxycodone-acetaminophen [Percocet] 1 - 2 tab PO Q4H PRN cariprazine [Vraylar] 1.5 mg PO QAM dolutegravir [Tivicay] 50 mg PO QPM lisinopril 20 mg PO QPM lisinopril 20 mg-hydrochlorothiazide 25 mg tablet 1 tab PO HS trazodone 100 - 200 mg PO HS PRN amlodipine 2.5 mg tablet 2.5 mg PO QPM tadalafil 20 mg tablet 20 mg PO Take morning of surgery With a small sip of water, OTHERWISE NOTHING TO EAT OR DRINK AFTER MIDNIGHT: sulfamethoxazole-trimethoprim [Bactrim DS] 1 tab PO BID oxycodone-acetaminophen [Percocet] 1 - 2 tab PO Q4H PRN (if needed, may be taken up to four hours before surgery) cariprazine [Vraylar] 1.5 mg PO QAM Take evening before surgery Truvada 1 tab PO HS duloxetine [Cymbalta] 60 mg PO HS gabapentin 3 tab PO HS risperidone 1 dose PO QPM sulfamethoxazole-trimethoprim [Bactrim DS] 1 tab PO BID trazodone 1 - 2 tab PO HS PRN (if needed) oxycodone-acetaminophen [Percocet] 1 - 2 tab PO Q4H PRN (if needed) dolutegravir [Tivicay] 50 mg PO QPM lisinopril 20 mg PO QPM lisinopril 20 mg-hydrochlorothiazide 25 mg tablet 1 tab PO HS trazodone 100 - 200 mg PO HS PRN (if needed) amlodipine 2.5 mg tablet 2.5 mg PO QPM tadalafil 20 mg tablet 20 mg PO (if needed) Other Notes If you have any questions please call us at [phone] or [phone] or [phone] or [phone]
--- NOTE | 2019-05-09 11:40 | Anesthesiology Consultation ---
Date of Service May 09, 2019 Assessment & Plan (1) Encounter for pre-operative examination: S/P excision of lipoma L flank 11/03/18 = MAC #3, ETT 8.0, grade view II. Atraumatic x 1. Chart Review Chart Review: Acceptable Risk for Surgery and Patient seen in Pre Admission Testing Teaching & Discussion Instructed NPO after midnight before surgery, except medications with 15 cc of water. Medication instructions provided according to the PAT guidelines. History Surgery Operation Date: 06/15/19 08:30 Proposed Procedures p Right Total Shoulder Replacement - Pastor Brownlee, Height/Weight Height: 6 ft 4 in Weight: 110.4 kg Allergies Allergy/AdvReac Type Severity Reaction Status Date / Time Penicillins Allergy Severe ANAPHYLAXIS Verified 05/03/19 11:35 Guinea Pig Epithelium Allergy Intermediate eyes Uncoded 05/03/19 11:35 swell, TONGUE AND THROAT SWELLING Hamster Epithelium Allergy Intermediate eyes Uncoded 05/03/19 11:35 swell, TONGUE AND THROAT SWELLING Medications Home Medications Medication Instructions Recorded Confirmed Last Taken Truvada 1 tab PO HS 09/18/18 05/03/19 11/02/18 22:00 duloxetine [Cymbalta] 60 mg PO HS 09/18/18 05/03/19 11/02/18 22:00 gabapentin 3 tab PO HS 09/18/18 05/03/19 11/02/18 22:00 risperidone 1 dose PO QPM 09/18/18 05/03/19 11/02/18 22:00 sulfamethoxazole-trimethoprim 1 tab PO BID 09/18/18 05/03/19 09/26/18 [Bactrim DS] trazodone 1 - 2 tab PO HS PRN 09/18/18 05/03/19 11/02/18 22:00 oxycodone-acetaminophen [Percocet] 1 - 2 tab PO Q4H PRN #6 tab 11/03/18 05/03/19 Unknown cariprazine [Vraylar] 1.5 mg PO QAM 05/03/19 05/03/19 Unknown dolutegravir [Tivicay] 50 mg PO QPM 05/03/19 05/03/19 Unknown lisinopril 20 mg PO QPM 05/03/19 05/03/19 Unknown lisinopril 20 1 tab PO HS #90 tab 05/03/19 Unknown mg-hydrochlorothiazide 25 mg tablet trazodone 100 - 200 mg PO HS PRN 05/03/19 05/03/19 Unknown amlodipine 2.5 mg tablet 2.5 mg PO QPM #30 tab 05/04/19 Unknown tadalafil 20 mg tablet 20 mg PO .COMPLEX #10 tab 05/04/19 Unknown Past Medical History Medical History 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, shingles HIV (human immunodeficiency virus infection) (Chronic) Depression Methamphetamine abuse H/O Anxiety Hearing deficit RT EAR Hypertension Insomnia MRSA (methicillin resistant Staphylococcus aureus) H/O - TREATED - INFECTION ON LT BUTTOCK, RT UNDERARM, CHEST (08/2018) Macular degeneration Osteoarthritis Peripheral neuropathy Mostly in R foot Restless leg syndrome Schizo affective schizophrenia BIPOLAR DISORDER Spinal stenosis Exercise / Class Metabolic Activity II 4-5 Yardwork/Stairs/Walk up hill (Denies CP or SOB with 1 FOS) Past Family History Family History Father Family history of diabetes mellitus Sister Family history of diabetes mellitus Father Family hx colonic polyps Past Surgical History Surgical History History of benign orbital tumor (Chronic) LEFT EYE/BENIGN (MULTIPLE SURGERIES) 2 BIOPSIES ORBITAL DECOMPRESSION RADIATION TREATMENT Fusion of spine LUMBAR H/O foot surgery RT HEEL SURGERY History of arthroscopy RT KNEE X 5 LEFT KNEE X 2 RT SHOULDER ARTHROSCOPY History of colonoscopy History of esophagogastroduodenoscopy (EGD) History of herniorrhaphy RT/LEFT INGUINAL History of shoulder surgery RT History of surgery SOFT TISSUE M[place] [facility] [place] of [place] extraction History of total knee replacement RT Past Anesthesia History No Hx of Anesthesia Complications and No Family Hx of Anesthesia Complications History of PONV No Hx of PONV and No Hx of Motion Sickness Social History Smoking Status: Current every day smoker tobacco type: cigarettes Smoking cigarettes per day: 4-5 CIG DAILY Do You Dip or Chew Tobacco: No Hx Alcohol Use: Yes Alcohol type: beer and wine alcohol intake frequency: holidays/special occasions only Hx Substance Use: Yes substance use type: marijuana Last Used Substance Other:: MARIJUANA ONCE EVERY COUPLE OF MONTHS Review of Systems Pt denies any recent chest pain, shortness of breath, palpitations, cough, fever or URI. +slight cough and congestion from seasonal allergies Physical Exam Vital Signs BP: 113/68 P: 96bpm SPO2: 94% RA T: 98.2 F R: 16 ENMT Mouth: + dentures (full set) and + edentulous Thyromental Distance: > or= 3.5 Finger Breadths (4) Mallampati Class: III Neck normal visual inspection; neck extension not limited Respiratory normal respiratory effort Auscultation: lungs clear to auscultation bilaterally Cardiovascular Rate/Rhythm: regular rate and regular rhythm Heart Sounds: no murmur Vessels: no carotid bruit Extremities: no edema Testing Laboratory Results 05/09/19 11:55 05/09/19 11:55 PT 10.7 Seconds (9.0-12.0) 05/09/19 11:55 INR 1.0 (0.9-1.1) 05/09/19 11:55 APTT 26.5 Seconds (21.0-31.0) 05/09/19 11:55 Blood Type A Negative 05/09/19 11:55 Antibody Screen NEGATIVE 05/09/19 11:55 Electrocardiogram Date: 11/02/18 Findings: + NSR @ (73) iRBBB. Chest X-Ray Date: 05/09/19 Findings: + NAD
--- NOTE | 2019-05-09 12:17 | XRay Report ---
Chest x-ray 2 views CLINICAL HISTORY: Preoperative chest COMPARISON STUDY: 10/18/2018 FINDINGS: The cardiac and mediastinal contours are normal. There is no evidence of focal pulmonary co nsolidation. There is no evidence of failure. No pleural effusions are visualized.[ IMPRESSION: No active disease in the chest. Electronically signed by: Matthew Ortiz M.D. 05/09/2019 12:16 PM
[2019-05-09 12:28] LABS: Basophils # (auto) 0.05 K/uL (0-0.2); Basophils % (auto) 0.4 %; Eosinophils # (auto) 0.14 K/uL (0-0.5); Eosinophils % (auto) 1.2 %; Hematocrit (blood only) 49.5 % (42-52); Hemoglobin 16.9 g/dL (14.0-18.0); Immature Granulocytes # (auto) 0.03 K/uL (0.00-0.02); Immature Granulocytes % (auto) 0.3 %; Lymphocytes # (auto) 2.58 K/uL (1.2-3.4); Lymphocytes % (auto) 21.6 %; Mean Corpuscular Hemoglobin 31.4 pg (25-34); Mean Corpuscular Hgb Conc 34.1 g/dL (32-36); Mean Corpuscular Volume 91.8 fL (80-100); Monocytes # (auto) 1.07 K/uL (0.11-0.59); Monocytes % (auto) 8.9 %; Neutrophils % (auto) 67.6 %; Platelet Count 344 K/uL (130-400); RDW Coefficient of Variation 13.1 % (11.5-14.5); RDW Standard Deviation 43.9 fL (36.4-46.3); Red Blood Count 5.39 M/uL (4.7-6.1); White Blood Count 11.97 K/uL (4.8-10.8)
[2019-05-09 12:34] LABS: BUN Creatinine Ratio 7.2 (10-20); Calcium 9.3 mg/dl (8.5-10.1); Est GFR (African American) 65.9; Est GFR (Non-African American) 56.8; Potassium 3.9 mmol/L (3.5-5.1)
[2019-05-09 12:42] LABS: Partial Thromboplastin Time 26.5 Seconds (21.0-31.0); Prothrombin Time 10.7 Seconds (9.0-12.0)
--- NOTE | 2019-06-14 14:23 | History & Physical Report ---
Date of Service June 14, 2019 Assessment & Plan (1) Osteoarthritis of right shoulder: We will proceed with a right shoulder arthroplasty. Postoperatively he will be kept overnight for postop medical management. He plans to use Webrazzi upon discharge. Present on Admission?: Yes History of Present Illness Chief Complaint: Primary osteoarthritis of the right shoulder Primary Care Provider: Pola Castillo MD Dru is a pleasant 59-year-old male who is been dealing with chronic incre asing right shoulder pain. He recently had a right knee replacement done by Dr. Benoit and did very well with that. He has a complex medical history including HIV and a recent history of MRSA. He has had several little MRSA infections on the skin around his chest. This occurred over 6 months ago. He was treated with antibiotics and then resolved. Unfortunately he still having a lot of right shoulder pain. X-rays and clinical examination have been diagnostic for advanced osteoarthritis of the right shoulder. After failing extensive conservative treatment, he has elected proceed with a right total shoulder arthroplasty. Allergies Allergy/AdvReac Type Severity Reaction Status Date / Time Penicillins Allergy Severe ANAPHYLAXIS Verified 05/03/19 11:35 Guinea Pig Epithelium Allergy Intermediate eyes Uncoded 05/03/19 11:35 swell, TONGUE AND THROAT SWELLING Hamster Epithelium Allergy Intermediate eyes Uncoded 05/03/19 11:35 swell, TONGUE AND THROAT SWELLING Home Medications Home Medications Medication Instructions Recorded Confirmed Type Truvada 1 tab PO HS 09/18/18 05/03/19 History duloxetine [Cymbalta] 60 mg PO HS 09/18/18 05/03/19 History gabapentin 3 tab PO HS 09/18/18 05/03/19 History risperidone 1 dose PO QPM 09/18/18 05/03/19 History sulfamethoxazole-trimethoprim 1 tab PO BID 09/18/18 05/03/19 History [Bactrim DS] trazodone 1 - 2 tab PO HS PRN 09/18/18 05/03/19 History oxycodone-acetaminophen [Percocet] 1 - 2 tab PO Q4H PRN #6 tab 11/03/18 05/03/19 Rx cariprazine [Vraylar] 1.5 mg PO QAM 05/03/19 05/03/19 History dolutegravir [Tivicay] 50 mg PO QPM 05/03/19 05/03/19 History lisinopril 20 mg PO QPM 05/03/19 05/03/19 History lisinopril 20 1 tab PO HS #90 tab 05/03/19 Rx mg-hydrochlorothiazide 25 mg tablet trazodone 100 - 200 mg PO HS PRN 05/03/19 05/03/19 History amlodipine 2.5 mg tablet 2.5 mg PO QPM #30 tab 05/04/19 Rx tadalafil 20 mg tablet 20 mg PO .COMPLEX #10 tab 05/04/19 Rx Past Med/Surg History Medical History 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, shingles HIV (human immunodeficiency virus infection) (Chronic) Depression Methamphetamine abuse H/O Anxiety Hearing deficit RT EAR Hypertension Insomnia MRSA (methicillin resistant Staphylococcus aureus) H/O - TREATED - INFECTION ON LT BUTTOCK, RT UNDERARM, CHEST (08/2018) Macular degeneration Osteoarthritis Peripheral neuropathy Mostly in R foot Restless leg syndrome Schizo affective schizophrenia BIPOLAR DISORDER Spinal stenosis Surgical History History of benign orbital tumor (Chronic) LEFT EYE/BENIGN (MULTIPLE SURGERIES) 2 BIOPSIES ORBITAL DECOMPRESSION RADIATION TREATMENT Fusion of spine LUMBAR H/O foot surgery RT HEEL SURGERY History of arthroscopy RT KNEE X 5 LEFT KNEE X 2 RT SHOULDER ARTHROSCOPY History of colonoscopy History of esophagogastroduodenoscopy (EGD) History of herniorrhaphy RT/LEFT INGUINAL History of shoulder surgery RT History of surgery SOFT TISSUE MASS EXCISION LEFT FLANK - 11/03/18 [facility] History of tooth extraction History of total knee replacement RT Family History Father Family history of diabetes mellitus Sister Family history of diabetes mellitus Father Family hx colonic polyps Social History Preferred Language: Cymro Communication Ability: Effective Visual Impairment: No Limitations Hearing Ability: Normal Chief Service Dispatcher Required: No Beliefs That Will Affect Care: None Current Living Situation: Alone Feels Safe at Home: Yes Smoking Status: Current every day smoker Tobacco Type: cigarettes ; Cigarettes Per Day: 4-5 CIG DAILY ; Second Hand Exposure: No ; Hx Alcohol Use: Yes Alcohol type: beer and wine Hx Substance Use: Yes substance use type: marijuana Review of Systems All systems reviewed & are unremarkable except as noted in HPI & below Physical Exam Constitutional: WD/WN, vitals as above Eyes: PERRL, conjunctivae normal, anicteric sclerae ENMT: external ear and nose normal, oropharynx normal Neck: trachea midline, no thyromegaly Respiratory: normal respiratory effort Cardiovascular: RRR, no murmur, no edema Gastrointestinal (Abdomen): normal bowel sounds, soft, nontender, no hepatosplenomegaly Musculoskeletal: Physical examination of the right shoulder reveals decreased range of motion and crepitis throughout. There is good strength with full can testing and external rotation. There is tenderness palpation along the anterior glenohumeral joint line. The right upper extremity is neurovascularly intact. Psychiatric: A+Ox3, euthymic affect Results & Data Diagnostic Findings Radiographs of the right shoulder show osteoarthritis of the glenohumeral joint. There is joint space narrowing, osteophyte formation, and [id number] articulation.
[~2019-06-15 09:04] MED LIST changes: +ACETAMINOPHEN 500 MG TAB PO SCH; +BUPIVACAINE 0.5 % 5 MG/1 ML PF 10ML VIAL ONE; -DOLU1TAB PO; -DULO60CA44 PO; +FAMOTIDINE 20 MG TAB PO SCH; -GABA800T PO; +GABAPENTIN 300 MG CAP PO SCH; -LISI-788 PO; +LR 15ML/HR IV SCH; +LR 60ML/HR IV SCH; -LVT/20 PO; +ROPIVACAINE 0.5% HCL/PF 150 MG, BUPIVACAINE 0.5% MPF 30 ML, EPINEPHrine 30MG/30ML (OR U... INSTIL SCH; -RSP1 PO; +TRANEXAMIC ACID 1,000 MG **IV Intra-op IV SCH; +TRANEXAMIC ACID 1,000 MG **IV Pre-op IV SCH; -TRVHP PO; +VANCOMYCIN HCL 1,750 MG in SODIUM CHLORIDE 0.9% 500 ML IV SCH
[2019-06-15] MEDS ORDERED: LIDOCAINE HCL 2% 2 ML VIAL/AMP(20MG/ML) INFIL ONE (09:54)
[2019-06-15] MEDS ORDERED: PROPOFOL IV EMULSION 10 MG/ML 20 ML VIAL IV ONE (09:54)
[2019-06-15] MEDS ORDERED: DEXAMETHASONE SOD INJ 4 MG/ML VIAL ONE (09:54)
[2019-06-15] MEDS ORDERED: ROCURONIUM BROMIDE 10 MG/ML 5 ML VIAL ONE (09:54)
[2019-06-15] MEDS ORDERED: ONDANSETRON INJ 2 MG/ML 2 ML VIAL ONE (09:54)
[2019-06-15] MEDS ORDERED: MIDAZOLAM HCL 1 MG/ML 2ML VIAL ONE (09:54)
[2019-06-15] MEDS ORDERED: fentaNYL citrate 100 MCG/2 ML VIAL ONE (09:54)
--- NOTE | 2019-06-15 10:11 | History & Physical Bridge Note ---
Date of Service June 15, 2019 History & Physical Bridge Note I have examined the patient, reviewed the History & Physical and in the interval since the performance of the History & Physical I have noted the following changes of clinical significance: no changes noted
[2019-06-15] MEDS ORDERED: HYDROmorphone INJ 1 MG/ML SYRINGE IV PRN (10:31)
[2019-06-15] MEDS ORDERED: ePHEDrine sulfate 50 MG/ML AMP IV PRN (10:31)
[2019-06-15] MEDS ORDERED: ATROPINE SULFATE 0.1 MG/ML 10ML SYR IV PRN (10:31)
[2019-06-15] MEDS ORDERED: ONDANSETRON INJ 2 MG/ML 2 ML VIAL IV PRN ×2 (10:31→14:47)
[2019-06-15] MEDS ORDERED: fentaNYL citrate 100 MCG/2 ML VIAL IV PRN (10:31)
[2019-06-15] MEDS ORDERED: PHENYLEPHRINE HCL 10 MG/ML VIAL ONE (12:32)
[2019-06-15] MEDS ORDERED: PHENYLEPHRINE 100MCG/ML 5ML SYR ONE (12:32)
[2019-06-15] MEDS ORDERED: ORTHO JOINT ANESTHETIC ONE (12:39)
[2019-06-15] MEDS ORDERED: GLYCOPYRROLATE 0.2 MG/ML VIAL ONE (13:13)
[2019-06-15] MEDS ORDERED: NEOSTIGMINE METHYLSULFATE 5 MG/5 ML SYR ONE (13:13)
--- NOTE | 2019-06-15 13:24 | Operative Report ---
Post Operative Report Pre & Post Diagnosis Operation Date: 06/15/19 11:40 Pre-Op Diagnosis: Degenerative Joint Disease Right Shoulder Post-Op Diagnosis: Degenerative Joint Disease Right Shoulder Procedure Operation Date: 06/15/19 11:40 Actual Procedures p Right Total Shoulder Replacement(Right) - Pastor Brownlee DO Surgeon Pastor Brownlee DO Veneer Press Operator Pastor Faust PAC Estimated Blood Loss 20 Findings Consistent with Post-Op Diagnosis Specimens Right humeral head Complications none Disposition Disposition: Recovery Room Indications Jordi is a pleasant 59-year-old male who presented my office with chronic increasing right shoulder pain. X-rays and clinical examination were diagnostic for primary osteoarthritis of the right shoulder. After failing conservative treatment, he elected to proceed with a right total shoulder arthroplasty. Description of Procedure Implants used: I used a Biomet Comprehensive total shoulder arthroplasty system with a size 18 press fit mini humeral stem, a size 54 x 21 eccentric humeral head, and a large size glenoid with a Regenerex peg. The glenoid was cemented in place with Palacos G cement. The patient arrived at [facility] for the above procedure. There were seen in the preoperative holding area and the operative extremity was identified and signed. They were given a preoperative antibiotic and an interscalene nerve block. They were taken back to the operating room, laid on table in supine position, and put under general anesthesia. They were then put into the beachchair position. The shoulder was then prepped and draped in sterile fashion. A timeout was done and the patient in the operative extremity was properly identified. A deltopectoral approach was used. Dissection was taken down through the fascia and the deltoid was retracted laterally and the conjoined tendon was retracted medially. The anterior shoulder was exposed. The long head of the biceps tendon was tenodesed to the upper border of the pectoralis major. The subsca pularis was then released off the lesser tuberosity with a centimeter of cuff tissue remaining. The inferior capsule was released and the humeral head was dislocated. The rotator cuff was inspected and intact. A canal finding reamer was sent down the center of the humeral canal. Sequential reaming up to a size 18 reamer was done. Offset reamer a proximal humeral resection guide was placed. The proximal humerus was resected at 135 of inclination and 30 of retroversion. Inferior osteophytes were then removed and the glenoid was exposed. Time was spent doing an appropriate labral release . The glenoid measured to be a size large. A Biomet signature guide was then attached onto the anterior rim of the glenoid. A 3.2 mm Steinmann pin was then placed in the total shoulder arthroplasty hole. The glenoid was then reamed with a propeller reamer. The central post cutter was then used to prepare for the central boss. The cannulated peripheral peg drill guide was then placed and 3 peg holes were drilled. The final size large glenoid was then cemented in place with Palacos G cement. Surrounding soft tissues were then injected with 100 cc of an orthopedic pain control cocktail. Once cement had dried the proximal humerus was once again exposed. Sequential broaching of the humerus up to a size 18 broach was done. Off that broach a size 54 x 21 eccentric humeral head was trialed. The shoulder was then reduced, brought through a full range of motion and felt to be stable. The shoulder was then dislocated and the broach was removed. The final size 18 mini humeral stem implant was then impacted into place. A size 54 x 21 eccentric humeral head was then impacted onto the humeral stem. The shoulder was then reduced and once again brought through a full range of motion and felt to be stable. The subscapularis was then tenodesed back to the lesser tuberosity with transosseous FiberWire sutures and side to side sutures with the arm in 45 of external rotation. 2 sutures were placed in the lateral rotator interval. A dilute betadyne lavage was then done for 3 minutes. The joint was then irrigated with normal saline solution. Hemostasis was obtained. The skin was then closed with 2-0 Vicryl, 3-0V lock suture, and elma. A soft dressing was placed as well as a regular arm sling. The patient was then extubated and transferred to a hospital bed. There were taken to the postanesthesia care unit in stable condition. The tolerated the procedure well. I attest to the content of the Intraoperative Record and any orders documented t herein. Any exceptions are noted below.
--- NOTE | 2019-06-15 14:32 | Anesthesiology Progress Note ---
Date of Service June 15, 2019 Anesthesia Post Procedure Vital Signs Vital Signs: Temp Pulse Pulse Resp BP BP Pulse Ox 06/15/19 14:25 36.2 C L 78 16 116/78 96 06/15/19 14:15 82 16 111/77 96 06/15/19 14:05 36.0 C L 79 16 130/76 96 06/15/19 13:56 36.0 C L 76 16 114/72 97 06/15/19 09:37 37 C 98 H 20 152/110 H 97 Transfer of Care Handoff Completed per policy Notes Mental Status: alert / awake / arousable and participated in evaluation Patient Amnestic to Procedure: Yes Nausea / Vomiting: adequately controlled Pain: adequately controlled Airway Patency, RR, SpO2: stable & adequate BP & HR: stable & adequate Hydration State: stable & adequate Anesthetic Complications: no major complications apparent and Pt Satisfied with anesthetic care
--- NOTE | 2019-06-15 14:46 | XRay Report ---
XR shoulder RT min 2V routine HISTORY: 59 years-old Male Post shoulder surgery right shoulder arthroplasty COMPARISON: CT of the right shoulder 05/10/2019 TECHNIQUE: 2 views of the right shoulder FINDINGS: Right shoulder arthroplasty demonstrates satisfactory alignment. No acute fracture or retained foreig n body. Skin elma are noted with expected postsurgical soft tissue swelling and deep tissue air. U nchanged AC joint separation with elongated coracoclavicular interval suggestive of chronic grade 3 i njury. Hypoinflated lungs with right lung base opacities suggestive of probable atelectasis. IMPRESSION: Satisfactory alignment of the right shoulder arthroplasty. The above report was generated using voice recognition software. It may contain grammatical, syntax o r spelling errors. Electronically signed by: Wilber Castillo M.D. 06/15/2019 2:45 PM
[2019-06-15] MEDS ORDERED: HYDROmorphone INJ 0.5 MG/0.5 ML SYR IV PRN (14:47)
[2019-06-15] MEDS ORDERED: TADALAFIL 20 MG PO SCH (14:47)
[2019-06-15] MEDS ORDERED: OXYCODONE HCL IR 5 MG TAB (IMMEDIATE RELEASE) PO PRN (14:47)
[2019-06-15] MEDS ORDERED: METOCLOPRAMIDE HCL INJ 5 MG/ML 2 ML VIAL IV PRN (14:47)
[2019-06-15] MEDS ORDERED: NALOXONE HCL 0.4 MG/1 ML VIAL/CARP IV PRN (14:47)
[2019-06-15] MEDS ORDERED: BISACODYL 10 MG SUPP PR PRN (14:47)
[2019-06-15] MEDS ORDERED: MAGNESIUM HYDROXIDE SUSP 30 ML UDC PO PRN (14:47)
[2019-06-15] MEDS ORDERED: VANCOMYCIN CONSULT ACTIVE PRN (14:47)
[2019-06-15] MEDS: SULFAMETHOXAZOLE/TRIMETHOPRIM DS 800/160MG TAB PO SCH (15:45)
[2019-06-15] MEDS ORDERED: [UNRECOGNIZED DRUG - OTHER] SCH (16:00)
[2019-06-15] MEDS ORDERED: HYDROmorphone HCL 2 MG TAB PO PRN (17:37)
[2019-06-15] MEDS: KETOROLAC 30 MG/ML VIAL IV SCH (18:18)
[2019-06-15] MEDS ORDERED: COUGH DROP (SUGAR FREE) LOZ 24 LOZ/1 BOX BUCCAL PRN (19:42)
[2019-06-15] MEDS: SODIUM CHLORIDE 0.9% 1000ML 1,000 ML IV SCH (20:09)
[2019-06-15] MEDS ORDERED: GABAPENTIN 800 MG TAB PO SCH (21:00)
[2019-06-15] MEDS ORDERED: risperiDONE 1 MG TABLET PO SCH (21:00)
[2019-06-15] MEDS ORDERED: AMLODIPINE BESYLATE 5 MG TAB PO SCH (21:00)
[2019-06-15] MEDS ORDERED: EMTRICITABINE/TENOFOVIR TAB PO SCH (21:00)
[2019-06-15] MEDS ORDERED: SENNA 8.6 MG TAB PO SCH (21:00)
[2019-06-15] MEDS ORDERED: LISINOPRIL/HCTZ 20/25MG 1 TAB PO SCH (21:00)
[2019-06-15] MEDS ORDERED: DULOXETINE HCL 60 MG CAP PO SCH (21:00)
[2019-06-15] MEDS ORDERED: DOLUTEGRAVIR SODIUM 50 MG TAB PO SCH (21:00)
[2019-06-15] MEDS ORDERED: LISINOPRIL 20 MG TAB PO SCH (21:00)
[2019-06-15] MEDS: NICOTINE 21 MG/24 HR TDSY TD SCH (21:15)
[2019-06-15] MEDS: DOCUSATE SODIUM 100 MG CAP PO SCH (21:17)
[2019-06-15] MEDS: ACETAMINOPHEN 500 MG TAB PO SCH (21:20)
[2019-06-15] MEDS ORDERED: VRAYLAR 1.5 MG PO SCH (21:30)
[2019-06-15] MEDS ORDERED: VANCOMYCIN HCL 1,750 MG in SODIUM CHLORIDE 0.9% 500 ML IV SCH (22:00)
[2019-06-16] MEDS: KETOROLAC 30 MG/ML VIAL IV SCH ×2 (00:27→06:05)
[2019-06-16] MEDS: SODIUM CHLORIDE 0.9% 1000ML 1,000 ML IV SCH (06:03)
[2019-06-16] MEDS: ACETAMINOPHEN 500 MG TAB PO SCH (06:05)
[2019-06-16 06:34] LABS: Basophils # (auto) 0.02 K/uL (0-0.2); Basophils % (auto) 0.1 %; Hematocrit (blood only) 42.4 % (42-52); Hemoglobin 14.2 g/dL (14.0-18.0); Immature Granulocytes # (auto) 0.09 K/uL (0.00-0.02); Immature Granulocytes % (auto) 0.4 %; Lymphocytes # (auto) 1.53 K/uL (1.2-3.4); Lymphocytes % (auto) 6.7 %; Mean Corpuscular Hemoglobin 31.1 pg (25-34); Mean Corpuscular Hgb Conc 33.5 g/dL (32-36); Mean Corpuscular Volume 92.8 fL (80-100); Mean Platelet Volume 9.9 fL (7.4-10.4); Monocytes # (auto) 1.74 K/uL (0.11-0.59); Monocytes % (auto) 7.7 %; Neutrophils # (auto) 19.32 K/uL (1.4-6.5); Neutrophils % (auto) 85.1 %; Platelet Count 230 K/uL (130-400); RDW Coefficient of Variation 13.9 % (11.5-14.5); RDW Standard Deviation 47.3 fL (36.4-46.3); Red Blood Count 4.57 M/uL (4.7-6.1)
[2019-06-16 07:04] LABS: BUN Creatinine Ratio 10.3 (10-20); Calcium 8.5 mg/dl (8.5-10.1); Creatinine Clr Calc Pharmacy 86.6 ml/min; Est GFR (African American) 70.9; Est GFR (Non-African American) 61.1; Potassium 4.1 mmol/L (3.5-5.1)
[2019-06-16] MEDS: DOCUSATE SODIUM 100 MG CAP PO SCH (08:34)
[2019-06-16] MEDS: NICOTINE 21 MG/24 HR TDSY TD SCH (08:35)
[2019-06-16] MEDS: SULFAMETHOXAZOLE/TRIMETHOPRIM DS 800/160MG TAB PO SCH (08:36)
[2019-06-16] MEDS ORDERED: MULTIVITAMIN TAB PO SCH (09:00)
--- NOTE | 2019-06-16 09:09 | Orthopedic Progress Note ---
Date of Service June 16, 2019 Assessment & Plan (1) Osteoarthritis of right shoulder: Overall he is doing very well. Is not having much pain in the right shoulder. He will be seen by physical therapy today for range of motion and ambulation. We will keep him on oral Dilaudid for pain control. He can be discharged home later today. He plans to use Sylantro upon discharge. Present on Admission?: Yes Subjective Jordi was seen and examined at bedside this morning. Overall he is doing very well. Is not having much pain in the right shoulder. He was able to get some sleep last night. He has no complaints. Physical Exam Musculoskeletal: On physical examination of his right shoulder, the dressing is clean and dry. His radial, median, and ulnar nerves are checked and intact. He is wearing a sling as instructed. Results & Data Vital Signs (Past 12 Hours) Vital Signs Temp Pulse Resp BP Pulse Ox 06/16/19 06:59 36.7 C 78 16 99/67 L 93 06/16/19 04:16 36.6 C 73 16 125/77 90 06/15/19 22:54 36.9 C 87 16 145/81 H 93 Laboratory Results H & H 05/09/19 06/16/19 Range/Units 11:55 06:21 Hgb 16.9 14.2 (14.0-18.0) g/dL Hct 49.5 42.4 (42-52) % Coagulation 05/09/19 Range/Units 11:55 INR 1.0 (0.9-1.1) Diagnostic Findings Postoperative x-rays of the right shoulder show the prosthesis to be in anatomic alignment without any evidence of fracture, dislocation, or loosening. PG Care Time/CCT Total # of Minutes Spent Total Time Spent with Patient: Total time spent is greater than 50% in coordination of care (as documented) at patient's floor/unit and/or counseling patient:
--- NOTE | 2019-06-16 09:11 | Discharge Summary ---
Date of Service June 16, 2019 Admission HPI Per Admitting Provider Dru is a pleasant 59-year-old male who is been dealing with chronic increasing right shoulder pain. He recently had a right knee replacement done by Dr. Benoit and did very well with that. He has a complex medical history including HIV and a recent history of MRSA. He has had several little MRSA infections on the skin around his chest. This occurred over 6 months ago. He was treated with antibiotics and then resolved. Unfortunately he still having a lot of right shoulder pain. X-rays and clinical examination have been diagnostic for advanced osteoarthritis of the right shoulder. After failing extensive conservative treatment, he has elected proceed with a right total shoulder arthroplasty. Principal Diagnosis Right total shoulder arthroplasty Discharge Data Allergies Allergy/AdvReac Type Severity Reaction Status Date / Time Penicillins Allergy Severe ANAPHYLAXIS Verified 06/15/19 09:43 Guinea Pig Epithelium Allergy Intermediate eyes Uncoded 05/03/19 11:35 swell, TONGUE AND THROAT SWELLING Hamster Epithelium Allergy Intermediate eyes Uncoded 05/03/19 11:35 swell, TONGUE AND THROAT SWELLING Procedures Performed Operation Date: 06/15/19 11:40 Actual Procedures p Right Total Shoulder Replacement(Right) - Pastor Brownlee DO Ordered Studies 06/15/19 05:00 US - OR guided needle placemen Routine Hospital Course (1) Osteoarthritis of right shoulder: On June 15, 2019 Jordi arrived at [facility] and underwent a right total shoulder arthroplasty without complication. He had a general anesthetic and a right interscalene nerve block. Postoperatively he was placed in arm sling and discharged to general orthopedic floors. His hospital course was uneventful. On postop day #1 his H&H was stable and his pain was well controlled. He was able to participate well with physical therapy doing ambulation and range of motion exercises. He was then discharged home with Dilaudid for pain control. He will follow-up with orthopedics in 2 weeks. Total Time Total Time Spent Total Time Spent (In Minutes): 20 Discharge Plan Discharge Items Patient Disposition: Home - Home Health Services Reason For Visit: Degenerative Joint Disease Right Shoulder Discharge Diagnosis: Right total shoulder arthroplasty Discharge Goals: Decrease discomfort and Improve function Activity: Per 'Additional Instructions' section Non-emergency contact: Surgeon Call non-emergency contact if: your wound has increased redness and your wound has increased drainage Follow-up/Referrals: Guillard,Pola, MD [Primary Care Provider] - Diet: Carb Consistent or DM2 Addtl Provider Instructions: Activity and Therapy Recommendations: * If you are using [facility] then therapy will be provided at your home until they feel you have accomplished all of your goals. * If you are using [facility] then Physical Therapy will be provided until they feel you are ready to start Outpatient Physical Therapy. * If you are not using home therapy then Outpatient Physical Therapy should start about 3-5 days from your day of surgery. Therapy will last about 8-12 weeks * Wear your sling for 3 weeks, unless otherwise instructed. You may remove your sling to shower and to dress, but otherwise, you should be in your sling at all times, including while sleeping * The shoulder replacement is very stable and you can use your hand while in the sling * You were shown a series of exercises in the hospital. Do these exercises daily including the exercises you were shown in physical therapy. Medications: * Narcotic You will likely be sent home from the hospital with a prescription for the narcotic pain medication that worked best throughout your stay. * Other medications may be prescribed for specific circumstances. If you have any questions, please call the office at . * Resume previous home medications unless otherwise instructed Dressing Care: Leave the plastic dressing in place for 5 days. After 5 days you may remove the plastic dressing. If the incision is not draining then you may leave the elma open to air. If there is a little bit of drainage or if the elma are getting stuck on your clothing then cover the incision with a dry dressing. The elma will be removed at your 2 week follow-up appointment. Showering: You may shower with the plastic dressing in place. Let the shower spray hit the other shoulder. You can pat the plastic dry. If the dressing becomes wet underneath the plastic then simply remove the dressing. Keep the incision dry until you are 5 days out from the day of surgery. At that time you can shower with the elma exposed. Let the soapy shower water run over the elma and pat them dry. Do not scrub or soak the incision. Things To Watch For: * Drainage from the incision site that occurs more than one week after your surgery. * Increased redness at the incision site. * Fever above 102 degrees Fahrenheit. * Unusual chest pain or shortness of breath. * Call [facility] at with any of the above problems Follow-Up Visit: Follow-up with Dr. Brownlee 2-3 weeks after your day of surgery. An appointment was probably scheduled when you signed-up for surgery in the office. If you have any questions call Office Instructions: More detailed instructions as well as Frequently Asked Questions were provided in a folder by our office when you signed-up for surgery. Please review these instructions when you get home. If you have any further questions or concerns, please feel free to call the office at [phone] Prescriptions: New hydromorphone 2 mg Tablet 4 mg PO Q4H PRN (Reason: pain) Qty: 40 RF: 0 Continued lisinopril-hydrochlorothiazide 20-25 mg tablet 1 tab PO HS Qty: 90 RF: 1 amlodipine 2.5 mg tablet 2.5 mg PO QPM Qty: 30 RF: 5 tadalafil 20 mg tablet 20 mg PO .COMPLEX Qty: 10 RF: 6 trazodone 50 mg Tablet 1 - 2 tab PO HS PRN (Reason: Sleep) RF: 0 sulfamethoxazole-trimethoprim [Bactrim DS] 800-160 mg Tablet 1 tab PO BID RF: 0 gabapentin 800 mg Tablet 3 tab PO HS RF: 0 Truvada 200-300 mg Tablet 1 tab PO HS RF: 0 duloxetine [Cymbalta] 60 mg Capsule,Delayed Release(Dr/Ec) 60 mg PO HS RF: 0 risperidone 1 mg Tablet 1 dose PO QPM RF: 0 oxycodone-acetaminophen [Percocet] 5-325 mg tablet 1 - 2 tab PO Q4H PRN (Reason: pain) Qty: 6 RF: 0 trazodone 100 mg Tablet 100 - 200 mg PO HS PRN (Reason: Insomnia) RF: 0 Tivicay 50 mg Tablet 50 mg PO QPM RF: 0 Vraylar 1.5 mg Capsule 1.5 mg PO QAM RF: 0 lisinopril 20 mg tablet 20 mg PO QPM RF: 0 Stand-Alone Forms: [facility] Discharge Orders: Discharge Order (Routine); Ordered 06/16/19 Ordered By: Pastor Brownlee Admission Data Admit Date/Time: 06/15/19 13:56 Attending Provider: Pastor Brownlee Admit Provider: Pastor Brownlee Primary Care Provider: Pola Castillo Service: Surgical Services
[2019-06-16] MEDS ORDERED: VRAYLAR 1.5 MG PO SCH (21:00)
== END 2019-06-16 12:02 | disposition home health service (06) | DRG 483 ==
LOC: ASU 09:04 → 3E 13:56